=== PATIENT | female | born 1950 | race Caucasian/White ===

== ENCOUNTER 2016-05-13 12:31 | Inpatient (IN) | payer OTHER ==
[~2016-05-13] VITALS: Ht 167.6 cm; Wt 113.4 kg
[~2016-05-13 12:31] MED LIST: AZITHROMYCIN250 MG ORAL; BACITRACIN15 GM TOPIC
[2016-05-13] MEDS ORDERED: Thiamine HCl 100 MG in D5W 50 ML IVPB SCH (12:45)
[2016-05-13] MEDS ORDERED: Thiamine HCl 100mg/ml Inj ONE (13:16)
[2016-05-13 13:29] LABS: BASOPHILS % (AUTO) 1.1 % (0.0-2.0); LYMPHOCYTES % (AUTO) 17.4 % (20.0-45.0); MEAN CORPUSCULAR HEMOGLOBIN 31.4 PG (27.0-31.0); MEAN CORPUSCULAR HGB CONC 31.8 G/DL (32.0-36.0); MEAN CORPUSCULAR VOLUME 99 FL (80-99); MEAN PLATELET VOLUME 6.9 FL (6.5-10.1); NEUTROPHILS % (AUTO) 73.4 % (45.0-75.0); PLATELET COUNT 312 K/UL (150-450); RED BLOOD COUNT 4.37 M/UL (4.20-5.40); RED CELL DISTRIBUTION WIDTH 13.2 % (11.6-14.8); WHITE BLOOD COUNT 12.7 K/UL (4.8-10.8)
[2016-05-13 13:48] LABS: CALCIUM 8.9 mg/dL (8.6-10.2); CREATININE 1.1 mg/dL (0.5-0.9); GLOMERULAR FILTRATION RATE 49.4 mL/min (>60); TOTAL PROTEIN 7.6 g/dL (6.6-8.7); TROPONIN I < 0.30 ng/mL (<=0.30)
[2016-05-13 13:54] LABS: POTASSIUM 2.5 mEQ/L (3.4-4.9)
[2016-05-13 15:22] VITALS: BP 103/77
--- NOTE | 2016-05-13 15:24 | Emergency Room Report ---
History of Present Illness General Chief Complaint: Generalized Weakness Source: Patient, Medical Record, EMS Present Illness HPI Patient is a 69-year-old female who is brought in by EMS for generalized weakness. Patient was found lying in the street. The patient was noted to have prior history of diabetes. She reports being weak all over. History is markedly limited by patient's mental status. She states she lives in a hotel. Patient had reportedly been taking her diabetes medication intermittently. Allergies: Coded Allergies: PENICILLINS (Verified Allergy, Unknown, 01/31/11) Uncoded Allergies: EGGS (Allergy, Unknown, 01/31/11) Patient History Past Medical History: see triage record Reviewed Nursing Documentation: PMH: Agreed, PSxH: Agreed Nursing Documentation-PMH Past Medical History: No History, Except For Hx Cardiac Problems: Yes - High cholesterol, anemia Hx Hypertension: Yes Hx Diabetes: Yes Hx Seizures: Yes Review of Systems All Other Systems: negative except mentioned in HPI Physical Exam Vital Signs Date Time Temp Pulse Resp B/P Pulse Ox O2 Delivery O2 Flow Rate FiO2 05/13/16 12:25 98.1 93 18 194/84 97 Room Air General Appearance: alert, obese, Chronically Ill ENT: normal pharynx, normal voice Neck: full range of motion, supple Respiratory: rhonchi Cardiovascular #1: normal peripheral pulses, regular rate, rhythm, no edema Gastrointestinal: non tender, soft, no mass Musculoskeletal: back normal Neurologic: alert, oriented x3, responsive Psychiatric: other - denies hallucination, no si Skin: normal inspection, normal color, no rash Medical Decision Making Diagnostic Impression: Primary Impression: Episode of generalized weakness Additional Impressions: Hypokalemia Pneumonia ER Course Patient presented for generalized weakness.Patient presented for generalized weakness. Differential diagnosis included was not limited to anemia, urinary tract infection, electrolyte abnormality, hypothyroidism, myocardial infarction , myasthenia gravis, dehydration, among others. Because of complexity of patient's case laboratory testing and imaging studies were ordered. Laboratory studies showed evidence of a hypokalemia had chest x-ray one view interpreted by me showed a right middle lobe infiltrate. The patient was noted to have a slightly bizarre behavior. The patient given IV thiamine. The patient started on IV and oral potassium.Patient was given IV fluids she was given IV antibiotics for a right lung infiltrate Labs Test 05/13/16 13:09 White Blood Count 12.7 K/UL (4.8-10.8) Red Blood Count 4.37 M/UL (4.20-5.40) Hemoglobin 13.7 G/DL (12.0-16.0) Hematocrit 43.2 % (37.0-47.0) Mean Corpuscular Volume 99 FL (80-99) Mean Corpuscular Hemoglobin 31.4 PG (27.0-31.0) Mean Corpuscular Hemoglobin Concent 31.8 G/DL (32.0-36.0) Red Cell Distribution Width 13.2 % (11.6-14.8) Platelet Count 312 K/UL (150-450) Mean Platelet Volume 6.9 FL (6.5-10.1) Neutrophils (%) (Auto) 73.4 % (45.0-75.0) Lymphocytes (%) (Auto) 17.4 % (20.0-45.0) Monocytes (%) (Auto) 6.0 % (1.0-10.0) Eosinophils (%) (Auto) 2.0 % (0.0-3.0) Basophils (%) (Auto) 1.1 % (0.0-2.0) Sodium Level 147 mEQ/L (135-145) Potassium Level 2.5 mEQ/L (3.4-4.9) Chloride Level 99 mEQ/L (98-107) Carbon Dioxide Level 33 mEQ/L (20-30) Anion Gap 15 (5-15) Blood Urea Nitrogen 15 mg/dL (7-23) Creatinine 1.1 mg/dL (0.5-0.9) Estimat Glomerular Filtration Rate 49.4 mL/min (>60) Glucose Level 136 mg/dL (74-106) Calcium Level 8.9 mg/dL (8.6-10.2) Total Bilirubin 0.4 mg/dL (0.0-1.2) Aspartate Amino Transf (AST/SGOT) 37 U/L (5-40) Alanine Aminotransferase (ALT/SGPT) 21 U/L (3-33) Alkaline Phosphatase 92 U/L (35-104) Troponin I < 0.30 ng/mL (<=0.30) Total Protein 7.6 g/dL (6.6-8.7) Albumin 3.9 g/dL (3.5-5.2) Globulin 3.7 g/dL Albumin/Globulin Ratio 1.0 (1.0-2.7) EKG Diagnostic Results Rate: normal Rhythm: NSR ST Segments: other - flattened twaves, pvc Chest X-Ray Diagnostic Results EP Interpretation: Yes Findings: no effusion, no pneumothorax, no acute cardiopulmonary disease, other - right lung infiltrate Last Vital Signs Date Time Temp Pulse Resp B/P Pulse Ox O2 Delivery O2 Flow Rate FiO2 05/13/16 12:25 98.1 93 18 194/84 97 Room Air Status: unchanged Disposition: ADMITTED INPATIENT Condition: Serious Referrals: NOT CHOSEN IPA/,REFERRING (PCP) Elvis Priest May 13, 2016 15:23
[2016-05-13 17:30] VITALS: BP 169/102
[2016-05-13 19:34] VITALS: BP 147/62
[2016-05-13] MEDS ORDERED: DuoNeb 0.5-3(2.5)mg/3ml neb HHN PRN (20:30)
[2016-05-13] MEDS ORDERED: Ketorolac 30mg Inj IV PRN (20:30)
[2016-05-13] MEDS ORDERED: Promethazine/Codeine 5ml UD ORAL PRN (20:30)
[2016-05-13] MEDS ORDERED: Morphine Sulfate 2mg/ml Inj IVP PRN (20:30)
[2016-05-13] MEDS ORDERED: Nitroglycerin Subl 0.4mg tab (Bottle Of 25) SL PRN (20:30)
[2016-05-13 21:30] VITALS: BP 154/59
[2016-05-13 22:28] VITALS: BP 145/86
[2016-05-13] MEDS: Heparin 5000 units/ml inj SUBQ SCH (22:30)
[2016-05-13] MEDS: Theophylline ER 100mg ORAL SCH (22:30)
[2016-05-13] MEDS: NovoLOG Insulin Flexpen SUBQ SCH (22:30)
[2016-05-14] VITALS: BP 138/75
[2016-05-14 04:00] VITALS: BP 130/81
[2016-05-14] MEDS: Solu-MEDROL 125mg Inj IV SCH ×2 (05:45)
[2016-05-14] MEDS: NovoLOG Insulin Flexpen SUBQ SCH ×4 (06:28→21:39)
[2016-05-14 08:00] VITALS: BP 164/88
[2016-05-14] MEDS: Theophylline ER 100mg ORAL SCH (08:44)
[2016-05-14] MEDS: Heparin 5000 units/ml inj SUBQ SCH ×2 (08:51→21:39)
--- NOTE | 2016-05-14 10:07 | History and Physical ---
History of Present Illness General Date patient seen: May 12, 2016 Time patient seen: 09:30 Reason for Hospitalization: Generalized Weakness Present Illness HPI 69 y/old female brought by paramedics for generalized weakness , she was found lying on the street patien is unreliable in giving history, changing it each time, while I was asking her additional questions Apparently she was arguing with her ex boyfriend who came to visit her, she got irritated and went outside , felt weak and decided to lie down on the street she stated, that one of her friends called paramedics she lives in [facility] patient with hx of DM, seizure disorder, HTN denies any seizures, and not witnessed by anyone BS was stable by paramedics and upon arrival to ED BP elevated 194/84 upon admission troponin negative, ECG with NSR flattening TW initial workup revealed mild leukocytosis hypokalemia CXR with questionable R infiltrate denies chest pain, SOB, chest tightness palpitations, occasional dry cough, no wheezing, no hemoptysis active smoker, smokes few cigarettes a day patient admitted to tele for further management Allergies: Coded Allergies: PENICILLINS (Verified Allergy, Unknown, 01/31/11) Uncoded Allergies: EGGS (Allergy, Unknown, 01/31/11) Medication History Scheduled Azithromycin* (Zithromax*), 250 MG ORAL DAILY Bacitracin (Bacitracin), 1 APPLIC TOPIC THREE TIMES A DAY Patient History History Provided By: Patient Healthcare decision maker Resuscitation status Full Code Advanced Directive on File Past Medical/Surgical History Past Medical/Surgical History: (1) Hyperlipidemia (2) Anemia (3) Seizure disorder (4) Diabetes (5) 23-polyvalent pneumococcal polysaccharide vaccine indication of diabetes in patient 6 to 64 years of age (6) HTN (hypertension) Review of Systems Constitutional: Reports: weakness Eye: Reports: no symptoms ENT: Reports: no symptoms Respiratory: Reports: see HPI Cardiovascular: Reports: no symptoms, other - hx of HTN Gastrointestinal: Reports: no symptoms Genitourinary: Reports: no symptoms Musculoskeletal: Reports: no symptoms Skin: Reports: no symptoms Psychiatric: Reports: prior hx Neurological: Reports: seizure Endocrine: Reports: other - hx of M Hematologic/Lymphatic: Reports: anemia Physical Exam General Appearance: WD/WN, no apparent distress, alert, obese Lines, tubes and drains: peripheral HEENT: normocephalic, atraumatic, anicteric, mucous membranes moist, PERRL Neck: non-tender, supple, normal inspection Respiratory/Chest: lungs clear - with moderate air entry , no respiratory distress, no accessory muscle use Cardiovascular/Chest: regular rhythm, tachycardia Abdomen: normal bowel sounds, non tender - obese, soft Extremities: normal range of motion, no calf tenderness, normal capillary refill Skin Exam: warm/dry Neurologic: no motor/sensory deficits, alert, oriented x 3, responsive Musculoskeletal: normal muscle bulk Last 24 Hour Vital Signs Date Time Temp Pulse Resp B/P Pulse Ox O2 Delivery O2 Flow Rate FiO2 05/14/16 09:02 164/88 05/14/16 08:00 123 05/14/16 04:00 97.6 98 22 130/81 97 Room Air 05/14/16 04:00 91 05/14/16 00:00 97.6 79 21 138/75 98 Room Air 05/14/16 00:00 100 05/13/16 22:28 97.5 77 20 145/86 98 Room Air 05/13/16 21:31 98.0 98 17 154/59 98 Room Air 05/13/16 21:30 98.0 98 16 154/59 98 Room Air 05/13/16 19:34 98.0 97 17 147/62 97 Room Air 05/13/16 17:30 97.5 102 23 169/102 99 Room Air 05/13/16 15:22 97.7 106 15 103/77 96 Room Air 05/13/16 12:25 98.1 93 18 194/84 97 Room Air Intake and Output 05/13/16 05/14/16 19:00 07:00 Intake Total 51 ml Balance 51 ml Intake IV Total 51 ml # Voids 3 Laboratory Tests Test 05/13/16 13:09 White Blood Count 12.7 K/UL (4.8-10.8) H Red Blood Count 4.37 M/UL (4.20-5.40) Hemoglobin 13.7 G/DL (12.0-16.0) Hematocrit 43.2 % (37.0-47.0) Mean Corpuscular Volume 99 FL (80-99) Mean Corpuscular Hemoglobin 31.4 PG (27.0-31.0) H Mean Corpuscular Hemoglobin Concent 31.8 G/DL (32.0-36.0) L Red Cell Distribution Width 13.2 % (11.6-14.8) Platelet Count 312 K/UL (150-450) Mean Platelet Volume 6.9 FL (6.5-10.1) Neutrophils (%) (Auto) 73.4 % (45.0-75.0) Lymphocytes (%) (Auto) 17.4 % (20.0-45.0) L Monocytes (%) (Auto) 6.0 % (1.0-10.0) Eosinophils (%) (Auto) 2.0 % (0.0-3.0) Basophils (%) (Auto) 1.1 % (0.0-2.0) Sodium Level 147 mEQ/L (135-145) H Potassium Level 2.5 mEQ/L (3.4-4.9) *L Chloride Level 99 mEQ/L (98-107) Carbon Dioxide Level 33 mEQ/L (20-30) H Anion Gap 15 (5-15) Blood Urea Nitrogen 15 mg/dL (7-23) Creatinine 1.1 mg/dL (0.5-0.9) H Estimat Glomerular Filtration Rate 49.4 mL/min (>60) Glucose Level 136 mg/dL (74-106) H Calcium Level 8.9 mg/dL (8.6-10.2) Total Bilirubin 0.4 mg/dL (0.0-1.2) Aspartate Amino Transf (AST/SGOT) 37 U/L (5-40) Alanine Aminotransferase (ALT/SGPT) 21 U/L (3-33) Alkaline Phosphatase 92 U/L (35-104) Troponin I < 0.30 ng/mL (<=0.30) Total Protein 7.6 g/dL (6.6-8.7) Albumin 3.9 g/dL (3.5-5.2) Globulin 3.7 g/dL Albumin/Globulin Ratio 1.0 (1.0-2.7) Height (Feet): 5 Height (Inches): 6.00 Weight (Pounds): 250 Medications Current Medications Medications (Trade) Dose Ordered Sig/Salma Route PRN Reason Start Time Stop Time Status Last Admin Dose Admin Albuterol/ Ipratropium (DuoNeb 0.5-3(2.5)mg/3ml) 3 ml EVERY 4 HOURS PRN HHN dyspnea 05/13/16 20:30 05/18/16 20:29 Clonidine HCl (Catapres) 0.1 mg Q6H PRN ORAL sbp>160 05/14/16 14:00 06/13/16 13:59 05/14/16 09:02 Dextrose STAT PRN IV Hypoglycemia 05/13/16 20:30 06/12/16 20:29 Heparin Sodium (Porcine) (Heparin 5000 units/ml) 5,000 units EVERY 12 HOURS SUBQ 05/13/16 21:00 06/12/16 20:59 05/14/16 08:51 Insulin Aspart (NovoLOG) BEFORE MEALS AND HS SUBQ 05/13/16 21:00 06/12/16 20:59 05/14/16 06:28 Ketorolac Tromethamine (Toradol 30mg) 30 mg EVERY 8 HOURS PRN IV moderate pain 4-6 05/13/16 20:30 05/18/16 20:29 Levofloxacin 100 ml @ 100 mls/hr ONCE IVPB 05/14/16 00:00 05/21/16 00:00 Levofloxacin (Levaquin) 50 ml @ 100 mls/hr Q24HRS IVPB 05/15/16 00:00 05/22/16 00:00 Lorazepam (Ativan 2mg/ml 1ml) 0.5 mg Q4H PRN IV For Anxiety 05/13/16 20:30 05/20/16 20:29 Methylprednisolone Sodium Succinate (Solu-MEDROL) 60 mg Q8HR IV 05/14/16 14:00 06/13/16 13:59 Morphine Sulfate (Morphine Sulfate) 2 mg EVERY 4 HOURS PRN IVP severe pain 7-10 05/13/16 20:30 05/20/16 20:29 Nitroglycerin (Ntg) 0.4 mg Q5M X 3 DOSES PRN SL Prn Chest Pain 05/13/16 20:30 06/12/16 20:29 Ondansetron HCl (Zofran) 4 mg Q6H PRN IVP Nausea & Vomiting 05/13/16 20:30 06/12/16 20:29 Promethazine HCl/ Codeine (Phenergan with Codeine) 5 ml EVERY 6 HOURS PRN ORAL cough 05/13/16 20:30 06/12/16 20:29 Temazepam (Restoril) 15 mg HSPRN PRN ORAL Insomnia 05/13/16 20:30 05/20/16 20:29 Theophylline (Hung-Dur) 100 mg EVERY 12 HOURS ORAL 05/13/16 21:00 06/12/16 20:59 05/14/16 08:44 Thiamine HCl/ Dextrose (Vitamin B1/D5W 50ml) 51 ml @ 100 mls/hr Q24H IVPB 05/13/16 12:45 06/12/16 12:44 05/13/16 13:18 Assessment/Plan Assessment/Plan ASSESSMENT CAP vs bronchitis COPD, no evidence of exacerbation hypokalemia HTN urgency -resolved episode of generalized weakness seizure disorder YULI [employer] troponin negative ECG with SR, occas tachy O2 HHN prn empiric abx CXR in am , dc steroids and Theophylline sputum cx if able antitussive prn replace K, check K and Mg in am BS management with SS of insulin, check HgA1c BP management with BB ( start low dose and titrate as needed) lipid panel seizure precaution, not sure if on any antiseizure medications urine drug screen gentle IV fluids, monitor renal parameters, lytes, DVT, GI prophylaxis case discussed and evaluated by supervising physician ute Yi ([facility]),Holly MALIN May 14, 2016 10:07
[2016-05-14 10:39] LABS: CALCIUM 8.3 mg/dL (8.6-10.2); CREATININE 1.2 mg/dL (0.5-0.9); GLOMERULAR FILTRATION RATE 44.7 mL/min (>60); POTASSIUM 3.2 mEQ/L (3.4-4.9)
--- NOTE | 2016-05-14 11:44 | Diagnostic Imaging Report ---
Indication: Chest Pain Comparison: None A single view chest radiograph was obtained. Findings: Pulmonary vascularity is mildly prominent without overt CHF. The heart is enlarged. The aorta is mildly enlarged consistent with atherosclerotic vascular disease. The bones are osteopenic. Impression: No acute disease
[2016-05-14 12:00] VITALS: BP 136/94
[2016-05-14] MEDS ORDERED: Solu-MEDROL 125mg Inj IV SCH (14:00)
[2016-05-14] MEDS ORDERED: KCl 10% 40mEq/30ml liquid NG ONE (15:00)
[2016-05-14 16:00] VITALS: BP 146/78
[2016-05-14] MEDS: LORazepam Inj 2mg/ml 1ml IV PRN (16:07)
[2016-05-14 20:00] VITALS: BP 145/91
[2016-05-14] MEDS: Metoprolol Tartrate 12.5mg TAB ORAL SCH (21:39)
[2016-05-15] VITALS (7 sets, daily range): BP systolic 116–194; BP diastolic 67–102
[2016-05-15] MEDS: NovoLOG Insulin Flexpen SUBQ SCH ×4 (06:33→21:40)
[2016-05-15] MEDS: Metoprolol Tartrate 12.5mg TAB ORAL SCH ×2 (10:25→21:38)
[2016-05-15] MEDS: Heparin 5000 units/ml inj SUBQ SCH ×2 (10:28→21:40)
[2016-05-15] MEDS ORDERED: LORazepam 0.5mg tab ORAL PRN (11:00)
--- NOTE | 2016-05-15 11:57 | Diagnostic Imaging Report ---
Indication: Dyspnea Comparison: 05/13/16 A single view chest radiograph was obtained. Findings: Cardiomegaly is present. Lungs are clear with normal vascularity. Impression: No acute disease
--- NOTE | 2016-05-15 13:26 | Pulmonology Progress Note ---
Assessment/Plan Problems: (1) Acute encephalopathy (2) Seizure disorder (3) Episode of generalized weakness (4) HTN (hypertension) Assessment/Plan psych and neuro evaluation check K pt/ot social service consult Subjective ROS Limited/Unobtainable: No Interval Events: awake, no new complains, refusing any lines Constitutional: Reports: no symptoms HEENT: Repors: no symptoms Cardiovascular: Reports: no symptoms Gastrointestinal/Abdominal: Reports: no symptoms Psychiatric: Reports: no symptoms Allergies: Coded Allergies: PENICILLINS (Verified Allergy, Unknown, 01/31/11) Uncoded Allergies: EGGS (Allergy, Unknown, 01/31/11) Objective Last 24 Hour Vital Signs Date Time Temp Pulse Resp B/P Pulse Ox O2 Delivery O2 Flow Rate FiO2 05/15/16 12:00 96.8 109 18 132/67 96 Room Air 05/15/16 10:25 108 132/67 05/15/16 08:00 96.9 112 18 151/79 95 Room Air 05/15/16 04:00 97.6 100 20 157/90 96 Room Air 05/15/16 04:00 100 05/15/16 00:30 158/93 05/15/16 00:00 98.8 101 20 162/91 95 Room Air 05/15/16 00:00 105 05/14/16 21:39 99 145/91 05/14/16 20:00 86 05/14/16 20:00 97.9 99 19 145/91 97 Room Air 05/14/16 16:00 109 05/14/16 16:00 98.1 66 20 146/78 95 Room Air Intake and Output 05/14/16 05/15/16 19:00 07:00 Intake Total 600 ml 840 ml Balance 600 ml 840 ml Intake Oral 600 ml 840 ml # Voids 2 5 # Bowel Movements 4 General Appearance: WD/WN HEENT: atraumatic Respiratory/Chest: chest wall non-tender, normal breath sounds Breasts: no masses Cardiovascular: normal peripheral pulses Abdomen: normal bowel sounds Current Medications Medications (Trade) Dose Ordered Sig/Salma Route PRN Reason Start Time Stop Time Status Last Admin Dose Admin Albuterol/ Ipratropium (DuoNeb 0.5-3(2.5)mg/3ml) 3 ml EVERY 4 HOURS PRN HHN dyspnea 05/13/16 20:30 05/18/16 20:29 Clonidine HCl (Catapres) 0.1 mg Q6H PRN ORAL sbp>160 05/14/16 14:00 06/13/16 13:59 05/14/16 09:02 Dextrose STAT PRN IV Hypoglycemia 05/13/16 20:30 06/12/16 20:29 Heparin Sodium (Porcine) (Heparin 5000 units/ml) 5,000 units EVERY 12 HOURS SUBQ 05/13/16 21:00 06/12/16 20:59 05/15/16 10:28 Insulin Aspart (NovoLOG) BEFORE MEALS AND HS SUBQ 05/13/16 21:00 06/12/16 20:59 05/15/16 12:15 Ketorolac Tromethamine (Toradol 30mg) 30 mg EVERY 8 HOURS PRN IV moderate pain 4-6 05/13/16 20:30 05/18/16 20:29 Levofloxacin (Levaquin) 50 ml @ 100 mls/hr Q24HRS IVPB 05/15/16 00:00 05/22/16 00:00 Lorazepam (Ativan 2mg/ml 1ml) 0.5 mg Q4H PRN IV For Anxiety 05/13/16 20:30 05/20/16 20:29 05/14/16 16:07 Lorazepam (Ativan) 0.5 mg Q6H PRN ORAL For Anxiety 05/15/16 11:00 05/22/16 10:59 Metoprolol Tartrate 12.5 mg 12.5 mg Q12HR ORAL 05/14/16 21:00 06/13/16 20:59 05/15/16 10:25 Morphine Sulfate (Morphine Sulfate) 2 mg EVERY 4 HOURS PRN IVP severe pain 7-10 05/13/16 20:30 05/20/16 20:29 Nitroglycerin (Ntg) 0.4 mg Q5M X 3 DOSES PRN SL Prn Chest Pain 05/13/16 20:30 06/12/16 20:29 Ondansetron HCl (Zofran) 4 mg Q6H PRN IVP Nausea & Vomiting 05/13/16 20:30 06/12/16 20:29 Promethazine HCl/ Codeine (Phenergan with Codeine) 5 ml EVERY 6 HOURS PRN ORAL cough 05/13/16 20:30 06/12/16 20:29 Ranitidine HCl (Zantac) 150 mg BEDTIME ORAL 05/14/16 21:00 06/13/16 20:59 05/14/16 21:39 Sodium Chloride (0.45% NS 1000ml) 1,000 ml @ 50 mls/hr Q20H IV 05/14/16 16:00 06/13/16 15:59 05/14/16 18:56 Temazepam (Restoril) 15 mg HSPRN PRN ORAL Insomnia 05/13/16 20:30 05/20/16 20:29 LAYLA ANGUIANO May 15, 2016 13:26
[2016-05-15] MEDS ORDERED: 1/2 NS 1000ml IV ONE (15:52)
--- NOTE | 2016-05-15 18:05 | Neurology Progress Note ---
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
[2016-05-16] VITALS (7 sets, daily range): BP systolic 115–192; BP diastolic 75–127
[2016-05-16] MEDS: LORazepam Inj 2mg/ml 1ml IV PRN (03:53)
--- NOTE | 2016-05-16 04:58 | Consultation ---
DATE OF CONSULTATION: 05/15/2016 REQUESTING PHYSICIAN: Dr. Juan Palma. HISTORY OF PRESENT ILLNESS: This is a 65-year-old female seen in neurological consultation to evaluate the chronic seizure disorder, new onset of profound generalized weakness, and confusion. The patient reportedly was found to be lying supine on the sidewalk, complained that she is feeling sick. Her blood pressure was 194/84, heart rate of 86, and respirations 18. Laboratory work was obtained, this revealed WBC 12.7. Chemistry panel, potassium 2.5, sodium 147, creatinine 1.1, and normal troponin. Imaging studies limited to chest x-ray revealing no acute disease. Vital signs with fluctuation in blood pressure latest 194/102 and heart rate of 108. Following admission until present, the patient remained confused and was placed. PAST MEDICAL HISTORY: Not clear because the patient is a poor historian. She informed me that she has seizure when she upright and shaking and falling. She has a history of hypertension, diabetes, hyperlipidemia, depression "with hallucinations and memory loss". Treatment prior to admission included Zithromax, bacitracin, she has p.r.n. Toradol, levofloxacin, Ativan, metoprolol, and Phenergan With Codeine. ALLERGIES: Penicillin, eggs. FAMILY HISTORY: Noncontributory. SOCIAL HISTORY: The patient confused, unable to provide with a history. Apparently, she is a resident of a nursing facility. According to medical records, the patient's boyfriend was visiting her and informed that she lives in a motel. She has a history of diabetes, seizures, and hypertension, although she never seen seizures in the past. REVIEW OF SYMPTOMS: The patient is currently complaining of being grumpy, having fevers and chills with generalized weakness. Denies headache. Denies dizziness. No chest pain or palpitations. No respiratory problems. PHYSICAL EXAMINATION: GENERAL: This is a well-developed and somewhat disheveled female, not in acute distress, lying comfortably in bed. VITAL SIGNS: Blood pressure 168/96 and respiration 18. HEENT: Head is normocephalic. No evidence of trauma. Eyes, ears, and throat are clear. NECK: Supple. No meningeal signs. MUSCULOSKELETAL: There is significant redness of the skin in distal aspect of both legs. Peripheral pulses 1+ symmetric. MENTAL STATUS: The patient is alert. She gives incorrectly her name, place, and time. She is quite confused. She was unable to recall any of three words in 3 minutes. She has no evidence of aphasia or apraxia. She is able to follow simple commands. CRANIAL NERVE II: Pupils both responding to light and accommodation. Extraocular movements intact. No nystagmus. CRANIAL NERVE V: Normal corneal responses. CRANIAL NERVE VII: No facial asymmetry. CRANIAL NERVE VIII: Normal hearing. CRANIAL NERVES IX THROUGH XII: Tongue is in midline. MOTOR EXAMINATION: Able to lift arms and legs against the gravity. Deep reflexes 1+ symmetric with downgoing toes on both sides. Sensory exam normal in all modalities. Gait is stable. IMPRESSION: 1. New onset of chills, fevers, and hypertension out of control. Rule out cellulitis and sepsis. 2. History of seizure disorder as well as possibly pseudoseizures. 3. Diabetes type 2. 4. Hyperlipidemia. 5. Hypertension. 6. Chronic psychiatric disorder with significant cognitive loss, rule out vascular dementia. RECOMMENDATION: 1. Continue with supportive care. 2. IV fluids and antibiotics to cover possible cellulitis. 3. Continue with current treatment, adding aspirin 81 mg. 4. Maintain Ativan 1 mg IV q.1 hour p.r.n. for appearance of seizure activities. We will consider obtaining electroencephalogram, observing for paroxysmal events. Thank you for allowing me to see this interesting patient in neurological consultation. Charles Garcia M.D. DR: VINICIO JOB#: [id number] CC:
[2016-05-16] MEDS: NovoLOG Insulin Flexpen SUBQ SCH ×3 (06:24→15:47)
[2016-05-16] MEDS: Metoprolol Tartrate 12.5mg TAB ORAL SCH ×3 (08:16→08:55)
[2016-05-16] MEDS: Heparin 5000 units/ml inj SUBQ SCH (08:18)
--- NOTE | 2016-05-16 12:37 | Pulmonology Progress Note ---
Assessment/Plan Problems: (1) Acute encephalopathy (2) Seizure disorder (3) Episode of generalized weakness (4) HTN (hypertension) Assessment/Plan psych and neuro evaluation check K pt/ot social service consult pt refusing labs dc home/fdc Subjective ROS Limited/Unobtainable: No Interval Events: no acute complain HEENT: Repors: no symptoms Allergies: Coded Allergies: PENICILLINS (Verified Allergy, Unknown, 01/31/11) Uncoded Allergies: EGGS (Allergy, Unknown, 01/31/11) Objective Last 24 Hour Vital Signs Date Time Temp Pulse Resp B/P Pulse Ox O2 Delivery O2 Flow Rate FiO2 05/16/16 12:00 97.9 100 20 139/98 94 Room Air 05/16/16 08:55 99 120/86 05/16/16 08:11 98.2 99 18 120/86 94 Room Air 05/16/16 08:00 109 05/16/16 05:00 147/89 05/16/16 04:11 98.2 119 22 192/127 94 Room Air 05/16/16 04:00 128 05/16/16 03:24 192/127 05/16/16 00:29 98.5 104 20 149/95 94 Room Air 05/16/16 00:00 104 05/15/16 21:38 108 174/112 05/15/16 20:00 98.6 103 18 116/74 94 Room Air 05/15/16 17:09 174/112 05/15/16 16:00 97.0 108 17 194/102 97 Room Air 05/15/16 16:00 112 Intake and Output 05/15/16 05/16/16 19:00 07:00 Intake Total 1090 ml 120 ml Balance 1090 ml 120 ml Intake Oral 1090 ml 120 ml # Voids 6 4 General Appearance: WD/WN HEENT: normocephalic Respiratory/Chest: chest wall non-tender, lungs clear Breasts: no masses Cardiovascular: normal peripheral pulses, normal rate Abdomen: normal bowel sounds, soft, non tender Extremities: no cyanosis Skin: no rash Current Medications Medications (Trade) Dose Ordered Sig/Salma Route PRN Reason Start Time Stop Time Status Last Admin Dose Admin Albuterol/ Ipratropium (DuoNeb 0.5-3(2.5)mg/3ml) 3 ml EVERY 4 HOURS PRN HHN dyspnea 05/13/16 20:30 05/18/16 20:29 Clonidine HCl (Catapres) 0.1 mg Q6H PRN ORAL sbp>160 05/14/16 14:00 06/13/16 13:59 05/16/16 03:24 Dextrose STAT PRN IV Hypoglycemia 05/13/16 20:30 06/12/16 20:29 Heparin Sodium (Porcine) (Heparin 5000 units/ml) 5,000 units EVERY 12 HOURS SUBQ 05/13/16 21:00 06/12/16 20:59 05/16/16 08:18 Insulin Aspart (NovoLOG) BEFORE MEALS AND HS SUBQ 05/13/16 21:00 06/12/16 20:59 05/16/16 10:54 Ketorolac Tromethamine (Toradol 30mg) 30 mg EVERY 8 HOURS PRN IV moderate pain 4-6 05/13/16 20:30 05/18/16 20:29 Levofloxacin (Levaquin) 50 ml @ 100 mls/hr Q24HRS IVPB 05/15/16 00:00 05/22/16 00:00 Lorazepam (Ativan 2mg/ml 1ml) 0.5 mg Q4H PRN IV For Anxiety 05/13/16 20:30 05/20/16 20:29 05/16/16 03:53 Lorazepam (Ativan) 0.5 mg Q6H PRN ORAL For Anxiety 05/15/16 11:00 05/22/16 10:59 Metoprolol Tartrate 12.5 mg 12.5 mg Q12HR ORAL 05/14/16 21:00 06/13/16 20:59 05/16/16 08:55 Morphine Sulfate (Morphine Sulfate) 2 mg EVERY 4 HOURS PRN IVP severe pain 7-10 05/13/16 20:30 05/20/16 20:29 05/16/16 03:23 Nitroglycerin (Ntg) 0.4 mg Q5M X 3 DOSES PRN SL Prn Chest Pain 05/13/16 20:30 06/12/16 20:29 Ondansetron HCl (Zofran) 4 mg Q6H PRN IVP Nausea & Vomiting 05/13/16 20:30 06/12/16 20:29 Promethazine HCl/ Codeine (Phenergan with Codeine) 5 ml EVERY 6 HOURS PRN ORAL cough 05/13/16 20:30 06/12/16 20:29 Ranitidine HCl (Zantac) 150 mg BEDTIME ORAL 05/14/16 21:00 06/13/16 20:59 05/15/16 21:38 Sodium Chloride (0.45% NS 1000ml) 1,000 ml @ 50 mls/hr Q20H IV 05/14/16 16:00 06/13/16 15:59 05/14/16 18:56 Temazepam (Restoril) 15 mg HSPRN PRN ORAL Insomnia 05/13/16 20:30 05/20/16 20:29 LAYLA ANGUIANO May 16, 2016 12:37
--- NOTE | 2016-05-17 13:03 | Discharge Summary ---
Discharge Summary Hospital Course Date of Admission May 13, 2016 at 21:56 Date of Discharge May 16, 2016 at 20:19 Admitting Diagnosis generalized weakness, hypokalemia HPI Lulú Hsu is a 65 year old female who was admitted on May 13, 2016 at 21:56 for Generalized Weakness; Hypokalemia Consultations neuro dr Garcia Hospital Course dc summary dictated #[id number] Discharge Medications Continued Medications: Bacitracin (Bacitracin) 15 Gm Oint...g. 1 APPLIC TOPIC THREE TIMES A DAY for 10 Days, GM Discharge Condition Upon Discharge: improving, stable Discharge Disposition Patient was discharged to assisted living Discharge Diagnoses: Kd (Merary)Holly NP May 17, 2016 13:03
--- NOTE | 2016-05-18 06:07 | Discharge Summary 2 SIG ---
DATE OF ADMISSION: 05/13/2016 DATE OF DISCHARGE: 05/16/2016 REASON FOR HOSPITALIZATION: 65-year-old female, brought by paramedics for generalized weakness. She was found lying on the street. The patient was unreliable in giving history, changing it. Apparently, she had an argument with her ex boyfriend, who came to visit her. She got irritated and went outside and decided to lie down on the street. She stated that one of her friends called the paramedics. The patient lives in [facility]. The patient has a history of diabetes, seizure disorder, and hypertension. She denied any seizure, and no seizure was witnessed by anyone on the street. She denied loss of consciousness, blackouts, headaches, dizziness. Blood sugar was stable as checked by paramedics and upon arrival to the emergency department, blood pressure was elevated upon admission. Troponin was negative. EKG revealed normal sinus rhythm with flattening T-wave. Initial workup revealed mild leukocytosis and hypokalemia and chest X ray with a questionable right lung infiltrate. She denied chest pain, shortness of breath, chest tightness, or palpitations. She reported occasional dry cough, but no wheezing, no hemoptysis. She admitted to smoking few cigarettes a day. The patient admitted to the telemetry for further management. ADMITTING DIAGNOSES: CAP vs bronchitis COPD Hypokalemia HTN urgency Seizure disorder Acute kidney injury HOSPITAL STAY: Neurology consult was requested. Followup chest x-ray revealed no evidence of pneumonia. Potassium was replaced. Supplemental oxygen and pulmonary toilet provided as needed. Neurologist seen the patient. Neurologist recommended seizure precautions and Ativan as needed. After examining the patient, he concluded the patient might have a seizure disorder versus pseudoseizures. The patient was initially on the IV fluids. Supportive care provided. The patient was on aspirin. The patient refused further laboratories testing. Blood sugar was managed with sliding scale of insulin, stable. Blood pressure was managed with beta-salas and was stable. We attempted to check hemoglobin A1c, lipid panel, however, the patient refused labs as well as unable to check potassium after potassium replacement. Renal parameters were stable. DVT and GI prophylaxes provided. Antitussive provided as needed. No evidence of the chronic obstructive pulmonary disease exacerbation. The patient counseled on smoking cessation. Urine toxicology screen was ordered, but not done. The patient did not provided urine specimen. Transfer arranged to assisted living facility. The patient agreed with the plan. The patient was stable for discharge. DISCHARGE MEDICATIONS: See medication reconciliation list. FINAL DISCHARGE DIAGNOSES: 1. Bronchitis. 2. Chronic obstructive pulmonary disease, no evidence of exacerbation. 3. Hypokalemia. 4. Hypertensive urgency, resolved. 5. Episodes of generalized weakness. 6. Seizure disorder. 7. Acute kidney injury, possibly element of chronic. DISCHARGE INSTRUCTIONS: The patient to follow up with the primary medical doctor. Juan Palma M.D. Holly RileyGuthrie Corning HospitalMelinda N.PJose Luis DR: JACKSON JOB#: [id number] CC: PORTILLO
== END 2016-05-16 20:19 | disposition home or self-care (01) | DRG 144 ==
LOC: EDBD 12:31 → EMR 14:28 → EDBEDREQ 21:19 → 2E 21:56 → EDBD 21:56
DX: J40 Bronchitis, not specified as acute or chronic (principal); G93.40 Encephalopathy, unspecified; N17.9 Acute kidney failure, unspecified; I10 Essential (primary) hypertension; E11.9 Type 2 diabetes mellitus without complications; D64.9 Anemia, unspecified; J44.9 Chronic obstructive pulmonary disease, unspecified; E87.6 Hypokalemia; G40.909 Epilepsy, unspecified, not intractable, without status epilepticus; E78.5 Hyperlipidemia, unspecified; Z72.0 Tobacco use; D72.829 Elevated white blood cell count, unspecified; R53.1 Weakness; I16.0 Hypertensive urgency; F99 Mental disorder, not otherwise specified
CPT/HCPCS: 36415; 71010; 80048; 80053; 82962; 84484; 85025; 93005; J1815; J8499

== ENCOUNTER 2016-07-18 19:57 | Inpatient (IN) | payer OTHER ==
[~2016-07-18] VITALS: Ht 165.1 cm; Wt 90.7 kg
[2016-07-18] MEDS ORDERED: LORazepam Inj 2mg/ml 1ml IM ONE (22:15)
[2016-07-18 22:37] VITALS: BP 135/76
--- NOTE | 2016-07-18 22:39 | Emergency Room Report ---
History of Present Illness General Chief Complaint: Vomiting Source: EMS Present Illness HPI 65 YO female presents to emergency department brought by ambulance sent from [facility] for 3 episodes of vomiting in addition she complains of headache. Upon arrival patient states that she does not have any complaints. Patient is a poor historian review of nursing facility paperwork in addition to the prior hospital record shows patient recently had urinary tract infection. Pt states she has a history of migraines and only recalls vomiting one time today. Pt has hx of cognitive decline. Denies fevers or chills. HPI & ROS is limited due to patient cooperation. Allergies: Coded Allergies: PENICILLINS (Verified Allergy, Unknown, 01/31/11) STREPTOMYCIN (Verified Allergy, Unknown, 07/18/16) Uncoded Allergies: EGGS (Allergy, Unknown, 01/31/11) Patient History Past Medical History: see triage record Past Surgical History: none Pertinent Family History: none Now: No Reviewed Nursing Documentation: PMH: Agreed, PSxH: Agreed Nursing Documentation-PMH Hx Cardiac Problems: No Hx Hypertension: Yes Hx Diabetes: Yes Hx Cancer: No Hx Gastrointestinal Problems: No Hx Neurological Problems: No Hx Seizures: Yes Review of Systems All Other Systems: limited - due to pt. cooperation Physical Exam Vital Signs Date Time Temp Pulse Resp B/P Pulse Ox O2 Delivery O2 Flow Rate FiO2 07/18/16 19:57 98.1 74 20 147/79 96 Room Air Sp02 EP Interpretation: reviewed, normal General Appearance: well appearing, no apparent distress, alert, GCS 15, non- toxic Head: normocephalic, atraumatic Eyes: bilateral eye PERRL, bilateral eye normal inspection ENT: hearing grossly normal, normal pharynx, no angioedema, normal voice Neck: full range of motion, supple/symm/no masses Respiratory: chest non-tender, lungs clear, normal breath sounds, speaking full sentences Cardiovascular #1: regular rate, rhythm, no edema Gastrointestinal: normal bowel sounds, non tender, soft, no guarding, no rebound Rectal: deferred Genitourinary: normal inspection, no CVA tenderness Musculoskeletal: back normal, gait/station normal, normal range of motion, non- tender, no calf tenderness Neurologic: alert, responsive, motor strength/tone normal, speech normal, other - poorly cooperative Psychiatric: judgement/insight normal, memory normal, mood/affect normal, no suicidal/homicidal ideation Skin: normal color, no rash, warm/dry, well hydrated Lymphatic: no adenopathy Medical Decision Making PA Attestation Dr. felix is my supervising Physician whom patient management has been discussed with. Diagnostic Impression: Primary Impression: Acute renal failure Qualified Codes: N17.9 - Acute kidney failure, unspecified Additional Impression: Dehydration ER Course 65 YO female presents to emergency department brought by ambulance [facility] for 3 episodes of vomiting in addition she complains of headache. Upon arrival patient states that she does not have any complaints. Patient is a poor historian review of nursing facility paperwork in addition to the prior hospital record shows patient recently had urinary tract infection. Pt states she has a history of migraines and only recalls vomiting one time today. Denies fevers or chills. HPI & ROS is limited due to patient cooperation. Ddx considered but are not limited to UTI, sepsis, GE, electrolyte imbalance Vital signs: are WNL, pt. is afebrile H&PE are most consistent with Nausea/comiting, and weakness in a pt. recently treated for UTI . ORDERS: -CBC: mild anemia -CMP: elevated creatinine and BUN consistent with acute renal failure - UA: moderate epithelial cells, few bacteria, no wbc's consistent with contamination over UTI -Lipase: mild elevation at 96 ED INTERVENTIONS: 1mg Ativan IM This pt. has been signed out to Dr. Cole pending laboratory results and possible admission. Labs Test 07/18/16 23:35 07/18/16 23:55 07/19/16 00:05 Sodium Level 142 mEQ/L (135-145) Potassium Level 4.3 mEQ/L (3.4-4.9) Chloride Level 102 mEQ/L (98-107) Carbon Dioxide Level 27 mEQ/L (20-30) Anion Gap 13 (5-15) Blood Urea Nitrogen 27 mg/dL (7-23) Creatinine 1.4 mg/dL (0.5-0.9) Estimat Glomerular Filtration Rate 37.8 mL/min (>60) Glucose Level 139 mg/dL (74-106) Calcium Level 9.2 mg/dL (8.6-10.2) Total Bilirubin < 0.2 mg/dL (0.0-1.2) Aspartate Amino Transf (AST/SGOT) 17 U/L (5-40) Alanine Aminotransferase (ALT/SGPT) 15 U/L (3-33) Alkaline Phosphatase 75 U/L (35-104) Total Protein 6.5 g/dL (6.6-8.7) Albumin 3.1 g/dL (3.5-5.2) Globulin 3.4 g/dL Albumin/Globulin Ratio 0.9 (1.0-2.7) Lipase 96 U/L (< 60) White Blood Count 9.0 K/UL (4.8-10.8) Red Blood Count 3.52 M/UL (4.20-5.40) Hemoglobin 10.9 G/DL (12.0-16.0) Hematocrit 32.8 % (37.0-47.0) Mean Corpuscular Volume 93 FL (80-99) Mean Corpuscular Hemoglobin 30.9 PG (27.0-31.0) Mean Corpuscular Hemoglobin Concent 33.1 G/DL (32.0-36.0) Red Cell Distribution Width 13.1 % (11.6-14.8) Platelet Count 255 K/UL (150-450) Mean Platelet Volume 7.3 FL (6.5-10.1) Neutrophils (%) (Auto) 62.3 % (45.0-75.0) Lymphocytes (%) (Auto) 26.2 % (20.0-45.0) Monocytes (%) (Auto) 7.9 % (1.0-10.0) Eosinophils (%) (Auto) 2.4 % (0.0-3.0) Basophils (%) (Auto) 1.2 % (0.0-2.0) Urine Color Pale yellow Urine Appearance Clear Urine pH 6 (4.5-8.0) Urine Specific [place] 1.015 (1.005-1.035) Urine Protein 3+ (NEGATIVE) Urine Glucose (UA) Negative (NEGATIVE) Urine Ketones Negative (NEGATIVE) Urine Occult Blood Negative (NEGATIVE) Urine Nitrite Negative (NEGATIVE) Urine Bilirubin Negative (NEGATIVE) Urine Urobilinogen Normal MG/DL (0.0-1.0) Urine Leukocyte Esterase Negative (NEGATIVE) Urine RBC 0-2 /HPF (0 - 2) Urine WBC 2-4 /HPF (0 - 2) Urine Squamous Epithelial Cells Many /LPF (NONE/OCC) Urine Bacteria Few /HPF (NONE) Urine HCG, Qualitative Negative Last Vital Signs Date Time Temp Pulse Resp B/P Pulse Ox O2 Delivery O2 Flow Rate FiO2 07/18/16 19:57 98.1 74 20 147/79 96 Room Air Disposition: ADMITTED INPATIENT Condition: Serious Signed Out To: Dr. Cole Referrals: DELMIS TENORIO (PCP) Kay Jacobo Jul 18, 2016 22:39
[2016-07-18] MEDS ORDERED: Morphine Sulfate 2mg/ml Inj IVP PRN (23:00)
[2016-07-18] MEDS ORDERED: Mylanta II UD 30ml ORAL PRN (23:00)
[2016-07-18] MEDS ORDERED: Miralax 17gm pkt ORAL PRN (23:00)
[2016-07-18] MEDS ORDERED: Nitroglycerin Subl 0.4mg tab (Bottle Of 25) SL PRN (23:00)
[2016-07-18] MEDS ORDERED: Haloperidol 5mg/ml Inj ONE (23:23)
[2016-07-18] MEDS ORDERED: Haloperidol 5mg/ml Inj IM ONE (23:45)
[2016-07-19] VITALS (8 sets, daily range): BP systolic 100–167; BP diastolic 48–81
[2016-07-19 00:16] LABS: ALANINE AMINOTRANSFERASE 15 U/L (3-33); ALBUMIN/GLOBULIN RATIO 0.9 (1.0-2.7); ANION GAP 13 (5-15); ASPARTATE AMINO TRANSFERASE 17 U/L (5-40); CALCIUM 9.2 mg/dL (8.6-10.2); CARBON DIOXIDE 27 mEQ/L (20-30); CHLORIDE 102 mEQ/L (98-107); CREATININE 1.4 mg/dL (0.5-0.9); GLOMERULAR FILTRATION RATE 37.8 mL/min (>60); HEMOLYSIS 4; LIPASE 96 U/L (< 60); POTASSIUM 4.3 mEQ/L (3.4-4.9); SODIUM 142 mEQ/L (135-145); TOTAL PROTEIN 6.5 g/dL (6.6-8.7)
[2016-07-19 00:25] LABS: BASOPHILS % (AUTO) 1.2 % (0.0-2.0); EOSINOPHILS % (AUTO) 2.4 % (0.0-3.0); LYMPHOCYTES % (AUTO) 26.2 % (20.0-45.0); MEAN CORPUSCULAR HEMOGLOBIN 30.9 PG (27.0-31.0); MEAN CORPUSCULAR HGB CONC 33.1 G/DL (32.0-36.0); MEAN CORPUSCULAR VOLUME 93 FL (80-99); MEAN PLATELET VOLUME 7.3 FL (6.5-10.1); MONOCYTES % (AUTO) 7.9 % (1.0-10.0); NEUTROPHILS % (AUTO) 62.3 % (45.0-75.0); PLATELET COUNT 255 K/UL (150-450); RED BLOOD COUNT 3.52 M/UL (4.20-5.40); RED CELL DISTRIBUTION WIDTH 13.1 % (11.6-14.8)
[2016-07-19 00:33] LABS: APPEARANCE,URINE CLEAR; KETONES,URINE NEGATIVE (NEGATIVE); LEUKOCYTE ESTERASE ,URINE NEGATIVE (NEGATIVE); NITRITE,URINE NEGATIVE (NEGATIVE); PH,URINE 6 (4.5-8.0); PROTEIN,URINE 3+ (NEGATIVE); UROBILINOGEN,URINE NORMAL MG/DL (0.0-1.0)
[2016-07-19] MEDS ORDERED: LACTULOSE20 GM/301 ORAL (00:43)
[2016-07-19] MEDS ORDERED: DOCUSATE SODIU100 MG ORAL (00:43)
[2016-07-19] MEDS ORDERED: TRADJENTA5 MG PO (00:43)
[2016-07-19] MEDS ORDERED: CARVEDILOL12.5 MG ORAL (00:43)
[2016-07-19] MEDS ORDERED: PENTOXIFYLLINE400 MG ORAL (00:43)
[2016-07-19] MEDS ORDERED: CATAPRES0.1 MG ORAL (00:43)
[2016-07-19] MEDS ORDERED: FAMOTIDINE20 MG ORAL (00:43)
[2016-07-19] MEDS ORDERED: LIPITOR20 MG ORAL (00:43)
[2016-07-19] MEDS ORDERED: MAGNESIUM OXID400 M1 ORAL (00:43)
[2016-07-19] MEDS ORDERED: LEVOTHYROXINE25 MCG ORAL (00:43)
[2016-07-19] MEDS ORDERED: PANTOPRAZOLE SO40 MG ORAL (00:43)
[2016-07-19 00:44] LABS: BACTERIA,URINE FEW /HPF; RBC,URINE 0-2 /HPF (0 - 2); SQUAMOUS EPITHELIAL CELL,UR MANY /LPF (NONE/OCC)
[2016-07-19] MEDS: D5 1/2NS 1,000 ML IV SCH ×3 (03:39→20:20)
[2016-07-19] MEDS ORDERED: Nystatin Powder 100,000 units/gm 15gm TOPIC SCH (09:00)
[2016-07-19] MEDS: Lactulose 20gm/30ml UDC ORAL SCH ×2 (09:28→17:46)
[2016-07-19] MEDS: Carvedilol 12.5mg tab ORAL SCH ×2 (09:29→20:46)
[2016-07-19] MEDS: Docusate 250mg cap ORAL SCH (09:29)
[2016-07-19] MEDS: Heparin 5000 units/ml inj SUBQ SCH ×2 (09:30→20:45)
[2016-07-19 10:26] LABS: EOSINOPHILS % (AUTO) 2.5 % (0.0-3.0); LYMPHOCYTES % (AUTO) 24.6 % (20.0-45.0); MEAN CORPUSCULAR HEMOGLOBIN 30.3 PG (27.0-31.0); MEAN CORPUSCULAR HGB CONC 32.2 G/DL (32.0-36.0); MEAN CORPUSCULAR VOLUME 94 FL (80-99); MEAN PLATELET VOLUME 7.6 FL (6.5-10.1); MONOCYTES % (AUTO) 7.8 % (1.0-10.0); PLATELET COUNT 239 K/UL (150-450); RED BLOOD COUNT 3.78 M/UL (4.20-5.40); RED CELL DISTRIBUTION WIDTH 13.1 % (11.6-14.8); WHITE BLOOD COUNT 6.3 K/UL (4.8-10.8)
[2016-07-19 10:38] LABS: ALBUMIN/GLOBULIN RATIO 0.9 (1.0-2.7); CALCIUM 9.5 mg/dL (8.6-10.2); CREATININE 1.3 mg/dL (0.5-0.9); GLOMERULAR FILTRATION RATE 41.3 mL/min (>60)
--- NOTE | 2016-07-19 14:15 | GI Initial Consult Note ---
History of Present Illness General Date patient seen: Jul 19, 2016 Time patient seen: 11:00 Reason for Hospitalization: Vomiting Referring physician: DEMLIS TENORIO Reason for Consultation: ANEMIA / VOMITING Present Illness HPI 65 YO female presents to emergency department brought by ambulance sent from longterm facility for 3 episodes of vomiting in addition she complains of headache. Upon arrival patient states that she does not have any complaints. Patient is a poor historian review of nursing facility paperwork in addition to the prior hospital record shows patient recently had urinary tract infection. Pt states she has a history of migraines and only recalls vomiting one time today. Pt has hx of cognitive decline. Denies fevers or chills. HPI & ROS is limited due to patient cooperation. GI CONSULT: HPI as noted above. GI consulted for anemia / vomiting. Pt seen on floor, awake A&Ox4 NAD with no active s/sx of vomiting. Denies any previous hematemesis or coffee grounds. Denies constipation, last BM noted yesterday. No history of any endoscopic procedures. The patient presents today with anemia , elevated lipase and hypoalbuminemia. Home Meds Active Scripts Bacitracin (Bacitracin) 15 Gm Oint...g., 1 APPLIC TOPIC THREE TIMES A DAY for 10 Days, GM Prov:GÓMEZ EASLEY M.D. 02/02/15 Azithromycin* (ZITHROMAX*) 250 Mg Tablet, 250 MG ORAL DAILY, #6 TAB Take two tablets by mouth today, then take one tablet by mouth daily for four days Prov:UMESH RAYO M.D. 01/31/15 Reported Medications Docusate Sodium* (DOCUSATE SODIUM*) 100 Mg Capsule, 100 MG ORAL THREE TIMES A DAY, CAP 07/19/16 Magnesium Oxide (MAGNESIUM OXIDE) 400 Mg Tablet, 400 MG ORAL DAILY, #30 TAB 0 Refills 07/19/16 Pentoxifylline* (TRENTAL*) 400 Mg Tablet.er, 400 MG ORAL, TAB 0 Refills 07/19/16 Linagliptin (TRADJENTA) 5 Mg Tablet, 5 MG PO, TAB 07/19/16 Clonidine Hcl* (CATAPRES*) 0.1 Mg Tablet, 0.1 MG ORAL EVERY 6 HOURS, TAB 07/19/16 Atorvastatin Calcium* (LIPITOR*) 20 Mg Tablet, 20 MG ORAL BEDTIME, TAB 07/19/16 Levothyroxine Sodium* (LEVOTHYROXINE SODIUM*) 25 Mcg Tablet, 25 MCG ORAL DAILY, TAB Take in the morning on an empty stomach, at least 30 minutes before food. 07/19/16 Carvedilol* (CARVEDILOL*) 12.5 Mg Tablet, 12.5 MG ORAL EVERY 12 HOURS, TAB 07/19/16 Famotidine (FAMOTIDINE) 20 Mg Tablet, 20 MG ORAL DAILY, #30 TAB 0 Refills 07/19/16 Lactulose (LACTULOSE*) 20 Gm/30 Ml Solution, 30 ML ORAL, ML 0 Refills 07/19/16 Pantoprazole* (PANTOPRAZOLE*) 40 Mg Tablet.dr, 40 MG ORAL DAILY, TAB 07/19/16 Med list reviewed/reconciled: Yes Allergies: Coded Allergies: PENICILLINS (Verified Allergy, Unknown, 01/31/11) STREPTOMYCIN (Verified Allergy, Unknown, 07/18/16) Uncoded Allergies: EGGS (Allergy, Unknown, 01/31/11) Patient History History Provided By: Patient, Medical Record PMH Narrative Past Medical History: see triage record Past Surgical History: none Pertinent Family History: none Now: No Reviewed Nursing Documentation: PMH: Agreed, PSxH: Agreed Nursing Documentation-PMH Hx Cardiac Problems: No Hx Hypertension: Yes Hx Diabetes: Yes Hx Cancer: No Hx Gastrointestinal Problems: No Hx Neurological Problems: No Hx Seizures: Yes Review of Systems All Other Systems: negative except mentioned in HPI Physical Exam Vital Signs Date Time Temp Pulse Resp B/P Pulse Ox O2 Delivery O2 Flow Rate FiO2 07/18/16 19:57 98.1 74 20 147/79 96 Room Air Sp02 EP Interpretation: reviewed Labs Laboratory Tests Test 07/18/16 23:35 07/18/16 23:55 07/19/16 00:05 07/19/16 09:45 Sodium Level 142 mEQ/L (135-145) 142 mEQ/L (135-145) Potassium Level 4.3 mEQ/L (3.4-4.9) 4.0 mEQ/L (3.4-4.9) Chloride Level 102 mEQ/L (98-107) 101 mEQ/L (98-107) Carbon Dioxide Level 27 mEQ/L (20-30) 29 mEQ/L (20-30) Anion Gap 13 (5-15) 12 (5-15) Blood Urea Nitrogen 27 mg/dL (7-23) H 24 mg/dL (7-23) H Creatinine 1.4 mg/dL (0.5-0.9) H 1.3 mg/dL (0.5-0.9) H Estimat Glomerular Filtration Rate 37.8 mL/min (>60) 41.3 mL/min (>60) Glucose Level 139 mg/dL (74-106) H 160 mg/dL (74-106) H Calcium Level 9.2 mg/dL (8.6-10.2) 9.5 mg/dL (8.6-10.2) Total Bilirubin < 0.2 mg/dL (0.0-1.2) 0.2 mg/dL (0.0-1.2) Aspartate Amino Transf (AST/SGOT) 17 U/L (5-40) 17 U/L (5-40) Alanine Aminotransferase (ALT/SGPT) 15 U/L (3-33) 14 U/L (3-33) Alkaline Phosphatase 75 U/L (35-104) 81 U/L (35-104) Total Protein 6.5 g/dL (6.6-8.7) L 7.0 g/dL (6.6-8.7) Albumin 3.1 g/dL (3.5-5.2) L 3.4 g/dL (3.5-5.2) L Globulin 3.4 g/dL 3.6 g/dL Albumin/Globulin Ratio 0.9 (1.0-2.7) L 0.9 (1.0-2.7) L Lipase 96 U/L (< 60) H 95 U/L (< 60) H White Blood Count 9.0 K/UL (4.8-10.8) 6.3 K/UL (4.8-10.8) Red Blood Count 3.52 M/UL (4.20-5.40) L 3.78 M/UL (4.20-5.40) L Hemoglobin 10.9 G/DL (12.0-16.0) L 11.5 G/DL (12.0-16.0) L Hematocrit 32.8 % (37.0-47.0) L 35.7 % (37.0-47.0) L Mean Corpuscular Volume 93 FL (80-99) 94 FL (80-99) Mean Corpuscular Hemoglobin 30.9 PG (27.0-31.0) 30.3 PG (27.0-31.0) Mean Corpuscular Hemoglobin Concent 33.1 G/DL (32.0-36.0) 32.2 G/DL (32.0-36.0) Red Cell Distribution Width 13.1 % (11.6-14.8) 13.1 % (11.6-14.8) Platelet Count 255 K/UL (150-450) 239 K/UL (150-450) Mean Platelet Volume 7.3 FL (6.5-10.1) 7.6 FL (6.5-10.1) Neutrophils (%) (Auto) 62.3 % (45.0-75.0) 64.0 % (45.0-75.0) Lymphocytes (%) (Auto) 26.2 % (20.0-45.0) 24.6 % (20.0-45.0) Monocytes (%) (Auto) 7.9 % (1.0-10.0) 7.8 % (1.0-10.0) Eosinophils (%) (Auto) 2.4 % (0.0-3.0) 2.5 % (0.0-3.0) Basophils (%) (Auto) 1.2 % (0.0-2.0) 1.0 % (0.0-2.0) Urine Color Pale yellow Urine Appearance Clear Urine pH 6 (4.5-8.0) Urine Specific [place] 1.015 (1.005-1.035) Urine Protein 3+ (NEGATIVE) H Urine Glucose (UA) Negative (NEGATIVE) Urine Ketones Negative (NEGATIVE) Urine Occult Blood Negative (NEGATIVE) Urine Nitrite Negative (NEGATIVE) Urine Bilirubin Negative (NEGATIVE) Urine Urobilinogen Normal MG/DL (0.0-1.0) Urine Leukocyte Esterase Negative (NEGATIVE) Urine RBC 0-2 /HPF (0 - 2) Urine WBC 2-4 /HPF (0 - 2) Urine Squamous Epithelial Cells Many /LPF (NONE/OCC) H Urine Bacteria Few /HPF (NONE) Urine HCG, Qualitative Negative Activated Partial Thromboplast Time 27 SEC (23-33) Amylase Level 78 U/L (10-110) General Appearance: well appearing, no apparent distress, alert, obese Head: normocephalic EENT: PERRL/EOMI, normal ENT inspection Neck: full range of motion, supple Respiratory: normal inspection, chest non-tender, normal breath sounds, no respiratory distress Cardiovascular: normal peripheral pulses, normal rate, regular rhythm Gastrointestinal: normal inspection, non tender, soft Rectal: deferred Genitourinary: no CVA tenderness Musculoskeletal: back normal Neurologic: normal inspection, alert, oriented x3, responsive Psychiatric: normal inspection, judgement/insight normal, memory normal Skin: normal inspection, normal color, no rash Lymphatic: normal inspection, no adenopathy Current Medications Current Medications Medications (Trade) Dose Ordered Sig/Salma Route PRN Reason Start Time Stop Time Status Last Admin Dose Admin Acetaminophen (Tylenol) 650 mg Q4H PRN ORAL fever 07/18/16 23:00 08/17/16 22:59 Al Hydroxide/Mg Hydroxide (Mylanta II) 30 ml Q6H PRN ORAL dyspepsia 07/18/16 23:00 08/17/16 22:59 Atorvastatin Calcium (Lipitor) 20 mg BEDTIME ORAL 07/19/16 21:00 08/18/16 20:59 Carvedilol (Coreg) 12.5 mg EVERY 12 HOURS ORAL 07/19/16 09:00 08/18/16 08:59 07/19/16 09:29 Clonidine HCl (Catapres) 0.1 mg Q4H PRN ORAL SBP >150 07/19/16 08:00 08/18/16 07:59 07/19/16 11:44 Dextrose (Dextrose 50%) STAT PRN IV Hypoglycemia 07/18/16 23:00 08/17/16 22:59 Dextrose/Sodium Chloride (D5 0.45% NS) 1,000 ml @ 75 mls/hr [id number] IV 07/18/16 17:40 08/17/16 17:39 07/19/16 03:39 Diphenhydramine HCl (Benadryl) 25 mg Q6H PRN ORAL Itching/Pruritis 07/18/16 23:00 08/17/16 22:59 Docusate Sodium (Colace) 100 mg DAILY ORAL 07/19/16 09:00 08/18/16 08:59 07/19/16 09:29 Famotidine (Pepcid I.v.) 20 mg QHS IVP 07/19/16 21:00 08/18/16 20:59 UNV Heparin Sodium (Porcine) (Heparin 5000 units/ml) 5,000 units EVERY 12 HOURS SUBQ 07/19/16 09:00 08/18/16 08:59 07/19/16 09:30 Ibuprofen (Motrin) 600 mg Q6H PRN ORAL Moderate Pain (Pain Scale 4-6) 07/19/16 08:00 08/18/16 07:59 Lactulose (Cephulac) 20 gm BID ORAL 07/19/16 09:00 08/18/16 08:59 07/19/16 09:28 Levothyroxine Sodium (Synthroid) 25 mcg DAILY@0630 ORAL 07/20/16 06:30 08/19/16 06:29 Morphine Sulfate (Morphine Sulfate) 2 mg Q4H PRN IVP severe Pain (Pain Scale 7-10) 07/18/16 23:00 07/25/16 22:59 Nitroglycerin (Ntg) 0.4 mg Q5M X 3 DOSES PRN SL Prn Chest Pain 07/18/16 23:00 08/17/16 22:59 Nystatin (Nystop Powder) 1 applic BID TOPIC 07/19/16 09:00 08/18/16 08:59 UNV Ondansetron HCl (Zofran) 4 mg Q6H PRN IVP Nausea & Vomiting 07/18/16 23:00 08/17/16 22:59 Pantoprazole (Protonix) 40 mg DAILY ORAL 07/19/16 09:00 08/18/16 08:59 UNV Pentoxifylline (TRENtal) 400 mg THREE TIMES A DAY ORAL 07/19/16 10:00 08/18/16 09:59 07/19/16 09:28 Polyethylene Glycol (Miralax) 17 gm HSPRN PRN ORAL Constipation 07/18/16 23:00 08/17/16 22:59 Sitagliptin Phosphate (Januvia) 50 mg ACBREAKFAST ORAL 07/20/16 06:30 08/19/16 06:29 Temazepam (Restoril) 15 mg HSPRN PRN ORAL Insomnia 07/18/16 23:00 07/25/16 22:59 GI: Plan Problems: (1) Elevated lipase (2) Hypoalbuminemia (3) Encounter for diagnostic endoscopy (4) Intractable nausea and vomiting (5) Diabetes (6) Anemia Plan EGD scheduled tomorrow to evaluate anemia / abdominal pain with vomiting. - ADA after abdominal U/S, then NPO @ HI. hold all blood thinners. anemia work up cont ppi H2 bowel regime; lactulose + colace fu labs Discussed with Dr. Estes. Thank you for referring this patient, we will follow. Rosmery Baptiste N.P. Jul 19, 2016 14:15
--- NOTE | 2016-07-19 16:07 | Diagnostic Imaging Report ---
Indication: Abdominal pain, abnormal renal function tests Technique: Lorenzo-scale and duplex images of the upper abdomen were obtained Comparison: 01/30/2011 CT scan. Findings: . Gallbladder is not visualized. Note that it was visible on 2011 CT. Sonographic Kapoor's sign is negative. Common bile duct measures 12 mm in diameter. No intrahepatic biliary ductal dilatation. Liver demonstrates normal echogenicity, no focal abnormality. Portal vein and hepatic veins are patent.. Pancreas is unremarkable. Spleen is unremarkable. Left kidney measures 9.2 cm in length. Right kidney measures 9.3 cm length. Both kidneys demonstrate normal echogenicity. There is no hydronephrosis. Right kidney demonstrates a 10 mm cyst. Abdominal aorta is partially obscured by bowel gas, visualized portions are non-aneurysmal. Impression: Nonvisualization of the gallbladder. It may be contracted, or may be surgically absent. Correlate with clinical history and findings Dilated common bile duct, etiology not demonstrated the downstream obstruction should be considered. Correlate with liver function tests. Consider MRCP for further evaluation Incidental finding of small right renal cyst Note incomplete visualization of the abdominal aorta
[2016-07-19] MEDS: Nystatin Powder 100,000 units/gm 15gm TOPIC SCH (18:10)
[2016-07-19] MEDS: Atorvastatin 20mg tab ORAL SCH (20:46)
[2016-07-19] MEDS ORDERED: Famotidine 20 MG/ 2ML VIAL IVP SCH ×2 (21:00)
--- NOTE | 2016-07-19 21:46 | Consultation ---
History of Present Illness General Date patient seen: Jul 19, 2016 Chief Complaint: Vomiting Referring physician: DELMIS TENORIO Reason for Consultation: inpatient management Present Illness HPI 65 year old female with pmhx of COPD, HTN, Seizures, shelter resident presented to emergency department with CC of vomiting in addition she complains of headache. . Pt states she has a history of migraines. Pt has hx of cognitive decline. Denies fevers or chills. She is admitted to med/surg for further evaluation. Allergies: Coded Allergies: PENICILLINS (Verified Allergy, Unknown, 01/31/11) STREPTOMYCIN (Verified Allergy, Unknown, 07/18/16) Uncoded Allergies: EGGS (Allergy, Unknown, 01/31/11) Medication History Scheduled Atorvastatin Calcium* (Lipitor*), 20 MG ORAL BEDTIME, (Reported) Azithromycin* (Zithromax*), 250 MG ORAL DAILY Bacitracin (Bacitracin), 1 APPLIC TOPIC THREE TIMES A DAY Carvedilol* (Carvedilol*), 12.5 MG ORAL EVERY 12 HOURS, (Reported) Clonidine Hcl* (Catapres*), 0.1 MG ORAL EVERY 6 HOURS, (Reported) Docusate Sodium* (Docusate Sodium*), 100 MG ORAL THREE TIMES A DAY, (Reported) Famotidine (Famotidine), 20 MG ORAL DAILY, (Reported) Levothyroxine Sodium* (Levothyroxine Sodium*), 25 MCG ORAL DAILY, (Reported) Magnesium Oxide (Magnesium Oxide), 400 MG ORAL DAILY, (Reported) Pantoprazole* (Pantoprazole*), 40 MG ORAL DAILY, (Reported) Miscellaneous Medications Lactulose (Lactulose*), 30 ML ORAL, (Reported) Linagliptin (Tradjenta), 5 MG PO, (Reported) Pentoxifylline* (Trental*), 400 MG ORAL, (Reported) Patient History Healthcare decision maker pt alert and oriented Resuscitation status Full Code Advanced Directive on File No Past Medical/Surgical History Past Medical/Surgical History: (1) Anemia (2) Diabetes (3) h/o seizure disorder (4) HTN (hypertension) (5) Seizure disorder Review of Systems All Other Systems: negative except mentioned in HPI Physical Exam General Appearance: WD/WN Lines, tubes and drains: peripheral HEENT: normocephalic, atraumatic Neck: non-tender, normal alignment Respiratory/Chest: chest wall non-tender, lungs clear Cardiovascular/Chest: normal peripheral pulses, normal rate Abdomen: normal bowel sounds Genitourinary/Rectal: normal genital exam Extremities: normal range of motion 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 Last 24 Hour Vital Signs Date Time Temp Pulse Resp B/P Pulse Ox O2 Delivery O2 Flow Rate FiO2 07/19/16 20:46 78 110/48 07/19/16 20:00 98.2 82 16 100/48 91 Room Air 07/19/16 18:11 155/78 07/19/16 16:00 96.8 87 19 155/78 94 Room Air 07/19/16 13:34 129/61 07/19/16 13:00 129/61 07/19/16 11:44 190/78 07/19/16 11:38 97.3 79 20 167/69 95 Room Air 07/19/16 09:29 84 164/71 07/19/16 09:28 164/71 07/19/16 08:10 98.0 84 19 164/71 95 Room Air 07/19/16 04:00 97.5 71 20 152/77 97 Room Air 07/19/16 01:05 97.3 65 18 146/70 97 Room Air 07/19/16 00:51 98.1 82 28 148/81 96 Room Air 07/19/16 00:15 98.1 82 28 148/81 96 Room Air 07/18/16 22:37 98.1 87 23 135/76 94 Room Air Intake and Output 07/18/16 07/19/16 18:59 06:59 Intake Total 225 ml Balance 225 ml Intake IV Total 225 ml # Voids 3 Laboratory Tests Test 07/18/16 23:35 07/18/16 23:55 07/19/16 00:05 07/19/16 09:45 Sodium Level 142 mEQ/L (135-145) 142 mEQ/L (135-145) Potassium Level 4.3 mEQ/L (3.4-4.9) 4.0 mEQ/L (3.4-4.9) Chloride Level 102 mEQ/L (98-107) 101 mEQ/L (98-107) Carbon Dioxide Level 27 mEQ/L (20-30) 29 mEQ/L (20-30) Anion Gap 13 (5-15) 12 (5-15) Blood Urea Nitrogen 27 mg/dL (7-23) H 24 mg/dL (7-23) H Creatinine 1.4 mg/dL (0.5-0.9) H 1.3 mg/dL (0.5-0.9) H Estimat Glomerular Filtration Rate 37.8 mL/min (>60) 41.3 mL/min (>60) Glucose Level 139 mg/dL (74-106) H 160 mg/dL (74-106) H Calcium Level 9.2 mg/dL (8.6-10.2) 9.5 mg/dL (8.6-10.2) Total Bilirubin < 0.2 mg/dL (0.0-1.2) 0.2 mg/dL (0.0-1.2) Aspartate Amino Transf (AST/SGOT) 17 U/L (5-40) 17 U/L (5-40) Alanine Aminotransferase (ALT/SGPT) 15 U/L (3-33) 14 U/L (3-33) Alkaline Phosphatase 75 U/L (35-104) 81 U/L (35-104) Total Protein 6.5 g/dL (6.6-8.7) L 7.0 g/dL (6.6-8.7) Albumin 3.1 g/dL (3.5-5.2) L 3.4 g/dL (3.5-5.2) L Globulin 3.4 g/dL 3.6 g/dL Albumin/Globulin Ratio 0.9 (1.0-2.7) L 0.9 (1.0-2.7) L Lipase 96 U/L (< 60) H 95 U/L (< 60) H White Blood Count 9.0 K/UL (4.8-10.8) 6.3 K/UL (4.8-10.8) Red Blood Count 3.52 M/UL (4.20-5.40) L 3.78 M/UL (4.20-5.40) L Hemoglobin 10.9 G/DL (12.0-16.0) L 11.5 G/DL (12.0-16.0) L Hematocrit 32.8 % (37.0-47.0) L 35.7 % (37.0-47.0) L Mean Corpuscular Volume 93 FL (80-99) 94 FL (80-99) Mean Corpuscular Hemoglobin 30.9 PG (27.0-31.0) 30.3 PG (27.0-31.0) Mean Corpuscular Hemoglobin Concent 33.1 G/DL (32.0-36.0) 32.2 G/DL (32.0-36.0) Red Cell Distribution Width 13.1 % (11.6-14.8) 13.1 % (11.6-14.8) Platelet Count 255 K/UL (150-450) 239 K/UL (150-450) Mean Platelet Volume 7.3 FL (6.5-10.1) 7.6 FL (6.5-10.1) Neutrophils (%) (Auto) 62.3 % (45.0-75.0) 64.0 % (45.0-75.0) Lymphocytes (%) (Auto) 26.2 % (20.0-45.0) 24.6 % (20.0-45.0) Monocytes (%) (Auto) 7.9 % (1.0-10.0) 7.8 % (1.0-10.0) Eosinophils (%) (Auto) 2.4 % (0.0-3.0) 2.5 % (0.0-3.0) Basophils (%) (Auto) 1.2 % (0.0-2.0) 1.0 % (0.0-2.0) Urine Color Pale yellow Urine Appearance Clear Urine pH 6 (4.5-8.0) Urine Specific [place] 1.015 (1.005-1.035) Urine Protein 3+ (NEGATIVE) H Urine Glucose (UA) Negative (NEGATIVE) Urine Ketones Negative (NEGATIVE) Urine Occult Blood Negative (NEGATIVE) Urine Nitrite Negative (NEGATIVE) Urine Bilirubin Negative (NEGATIVE) Urine Urobilinogen Normal MG/DL (0.0-1.0) Urine Leukocyte Esterase Negative (NEGATIVE) Urine RBC 0-2 /HPF (0 - 2) Urine WBC 2-4 /HPF (0 - 2) Urine Squamous Epithelial Cells Many /LPF (NONE/OCC) H Urine Bacteria Few /HPF (NONE) Urine HCG, Qualitative Negative Activated Partial Thromboplast Time 27 SEC (23-33) Amylase Level 78 U/L (10-110) Height (Feet): 5 Height (Inches): 5.00 Weight (Pounds): 200 Medications Current Medications Medications (Trade) Dose Ordered Sig/Salma Route PRN Reason Start Time Stop Time Status Last Admin Dose Admin Acetaminophen (Tylenol) 650 mg Q4H PRN ORAL fever 07/18/16 23:00 08/17/16 22:59 Al Hydroxide/Mg Hydroxide (Mylanta II) 30 ml Q6H PRN ORAL dyspepsia 07/18/16 23:00 08/17/16 22:59 Atorvastatin Calcium (Lipitor) 20 mg BEDTIME ORAL 07/19/16 21:00 08/18/16 20:59 07/19/16 20:46 Carvedilol (Coreg) 12.5 mg EVERY 12 HOURS ORAL 07/19/16 09:00 08/18/16 08:59 07/19/16 09:29 Clonidine HCl (Catapres) 0.1 mg Q4H PRN ORAL SBP >150 07/19/16 08:00 08/18/16 07:59 07/19/16 11:44 Dextrose (Dextrose 50%) STAT PRN IV Hypoglycemia 07/18/16 23:00 08/17/16 22:59 Dextrose/Sodium Chloride (D5 0.45% NS) 1,000 ml @ 75 mls/hr [id number] IV 07/18/16 17:40 08/17/16 17:39 07/19/16 03:39 Diphenhydramine HCl (Benadryl) 25 mg Q6H PRN ORAL Itching/Pruritis 07/18/16 23:00 08/17/16 22:59 Docusate Sodium (Colace) 100 mg DAILY ORAL 07/19/16 09:00 08/18/16 08:59 07/19/16 09:29 Heparin Sodium (Porcine) (Heparin 5000 units/ml) 5,000 units EVERY 12 HOURS SUBQ 07/19/16 09:00 08/18/16 08:59 07/19/16 09:30 Ibuprofen (Motrin) 600 mg Q6H PRN ORAL Moderate Pain (Pain Scale 4-6) 07/19/16 08:00 08/18/16 07:59 Lactulose (Cephulac) 20 gm BID ORAL 07/19/16 09:00 08/18/16 08:59 07/19/16 09:28 Levothyroxine Sodium (Synthroid) 25 mcg DAILY@0630 ORAL 07/20/16 06:30 08/19/16 06:29 Morphine Sulfate (Morphine Sulfate) 2 mg Q4H PRN IVP severe Pain (Pain Scale 7-10) 07/18/16 23:00 07/25/16 22:59 Nitroglycerin (Ntg) 0.4 mg Q5M X 3 DOSES PRN SL Prn Chest Pain 07/18/16 23:00 08/17/16 22:59 Nystatin (Nystop Powder) 1 applic BID TOPIC 07/19/16 18:00 08/18/16 17:59 07/19/16 18:10 Ondansetron HCl (Zofran) 4 mg Q6H PRN IVP Nausea & Vomiting 07/18/16 23:00 08/17/16 22:59 Pantoprazole (Protonix) 40 mg DAILY ORAL 07/19/16 09:00 08/18/16 08:59 Future hold Pentoxifylline (TRENtal) 400 mg THREE TIMES A DAY ORAL 07/19/16 10:00 08/18/16 09:59 07/19/16 18:11 Polyethylene Glycol (Miralax) 17 gm HSPRN PRN ORAL Constipation 07/18/16 23:00 08/17/16 22:59 Sitagliptin Phosphate (Januvia) 50 mg ACBREAKFAST ORAL 07/20/16 06:30 08/19/16 06:29 Temazepam (Restoril) 15 mg HSPRN PRN ORAL Insomnia 07/18/16 23:00 07/25/16 22:59 Assessment/Plan Problem List: (1) Intractable nausea and vomiting ICD Codes: R11.2 - Nausea with vomiting, unspecified SNOMED: 241164563, 476906572 (2) Seizure disorder ICD Codes: G40.909 - Epilepsy, unspecified, not intractable, without status epilepticus SNOMED: 271410059 (3) Anemia ICD Codes: D64.9 - Anemia, unspecified SNOMED: 876070331 (4) HTN (hypertension) ICD Codes: I10 - Essential (primary) hypertension SNOMED: 66832688 Assessment/Plan NPO, IV fluids check electrolytes GI evaluation sliding scale pt/ot evaluation LAYLA ANGUIANO Jul 19, 2016 21:46
[2016-07-20] VITALS: BP 147/77
[2016-07-20] MEDS: D5 1/2NS 1,000 ML IV SCH (00:26)
--- NOTE | 2016-07-20 01:08 | History and Physical Report ---
DATE OF ADMISSION: 07/18/2016 DATE: 07/19/2016 at 3 p.m. CONSULTANTS: 1. Jose Martin Estes M.D. 2. Juan Palma M.D. 3. Layla Jack M.D. CHIEF COMPLAINT: Vomiting x3. HISTORY OF PRESENT ILLNESS: The patient is a 65-year-old female from [facility] presented with above-mentioned diagnosis and admitted to medical floor for further treatment. Currently, sleeping in bed and not talking much. PAST MEDICAL HISTORY: Vomiting, weakness, dizziness, encephalopathy, seizure, hypertension, hyperlipidemia, acute renal failure, diabetes, and anemia. PAST SURGICAL HISTORY: Unknown. MEDICATIONS: Synthroid, Januvia, Pepcid, Lipitor, Trental, heparin, Protonix, Cephulac, Colace, nystatin, Coreg, Motrin, and Catapres. ALLERGIES: Penicillin and streptomycin. SOCIAL HISTORY: No smoking. No alcohol. No intravenous drug use. FAMILY HISTORY: Noncontributory. REVIEW OF SYSTEMS: Not available. PHYSICAL EXAMINATION: GENERAL: Calm in bed, oriented x1, no acute distress. VITAL SIGNS: Temperature is 97 degrees, pulse 89, respirations 20, and blood pressure 167/71. CARDIOVASCULAR: No murmur. LUNGS: Poor air exchange. ABDOMEN: Positive bowel sounds. Nontender and nondistended. EXTREMITIES: No cyanosis, clubbing, or edema. NEUROLOGIC: The patient moves all extremities. Does not want to follow commands. LABORATORY DATA: Labs show hemoglobin 11.5. CBC is normal. BMP shows BUN and creatinine 24 and 1.3, and glucose 160. Albumin 3.4. PTT is 27. Urinalysis, 3+ protein. ASSESSMENT: 1. Vomiting. 2. Weakness. 3. Dizziness. 4. Anemia. 5. Encephalopathy. 6. Seizure. 7. Hypertension. 8. Hyperlipidemia. 9. Acute renal failure. 10. Diabetes. PLAN: Continue premedications. Dr. Estes, Dr. Palma, Dr. Jack, Dr. Schmidt, and Dr. Vegas to consult. OT, PT, and dietary evaluation. CBC and BMP in the morning. Antiemetics p.r.n. GI followup. We will continue to follow the patient medically. Reilly Ely D.O. DR: Nikita JOB#: [id number] CC:
[2016-07-20 04:00] VITALS: BP 152/78
[2016-07-20] MEDS: sitaGLIPtin 50mg tab ORAL SCH (05:53)
[2016-07-20] MEDS: Levothyroxine 25mcg tab ORAL SCH (05:53)
[2016-07-20 07:32] LABS: BASOPHILS % (AUTO) 1.3 % (0.0-2.0); EOSINOPHILS % (AUTO) 3.1 % (0.0-3.0); LYMPHOCYTES % (AUTO) 28.6 % (20.0-45.0); MEAN CORPUSCULAR HEMOGLOBIN 30.6 PG (27.0-31.0); MEAN CORPUSCULAR HGB CONC 32.4 G/DL (32.0-36.0); MEAN CORPUSCULAR VOLUME 95 FL (80-99); MEAN PLATELET VOLUME 7.9 FL (6.5-10.1); MONOCYTES % (AUTO) 9.5 % (1.0-10.0); NEUTROPHILS % (AUTO) 57.4 % (45.0-75.0); PLATELET COUNT 220 K/UL (150-450); RED BLOOD COUNT 3.54 M/UL (4.20-5.40); RED CELL DISTRIBUTION WIDTH 13.6 % (11.6-14.8); WHITE BLOOD COUNT 6.1 K/UL (4.8-10.8)
[2016-07-20] MEDS: Heparin 5000 units/ml inj SUBQ SCH ×2 (07:43→20:58)
[2016-07-20 07:57] LABS: INR 1.1 (0.9-1.1); PROTHROMBIN TIME 10.7 SEC (9.30-11.50)
[2016-07-20 08:03] LABS: THYROID STIMULATING HORMONE 3.38 uIU/mL (0.300-4.500)
[2016-07-20 08:07] LABS: CALCIUM 9.3 mg/dL (8.6-10.2); CREATININE 1.4 mg/dL (0.5-0.9); GLOMERULAR FILTRATION RATE 37.8 mL/min (>60); POTASSIUM 3.9 mEQ/L (3.4-4.9)
--- NOTE | 2016-07-20 08:07 | Anethesia Preoperative Eval ---
Anesthesia Pre-op PMH/ROS General Date of Evaluation: Jul 20, 2016 Anesthesiologist: Michael ASA Score: ASA 3 Mallampati Score Class I : Soft palate, uvula, fauces, pillars visible Class II: Soft palate, uvula, fauces visible Class III: Soft palate, base of uvula visible Class IV: Only hard plate visible Mallampati Classification: Class II Surgeon: Meera Diagnosis: ?GI bleed Surgical Procedure: EGD Anesthesia History: none Family History: no anesthesia problems Allergies: Coded Allergies: PENICILLINS (Verified Allergy, Unknown, 01/31/11) STREPTOMYCIN (Verified Allergy, Unknown, 07/18/16) Uncoded Allergies: EGGS (Allergy, Unknown, 01/31/11) Medications: see eMAR Past Medical History Cardiovascular: Reports: HTN, Denies: CAD, MS, arrhythmia, other, valve dz Pulmonary: Reports: COPD, Denies: PRAKASH, asthma, other Gastrointestinal/Genitourinary: Reports: CRI - acute on chronic, other - gastritis, pancreatitis, Denies: ESRD, GERD Neurologic/Psychiatric: Reports: other - seizurs, Denies: CVA, TIA, dementia, depression/anxiety Endocrine: Reports: DM, hypothyroidism, Denies: other, steroids HEENT: Denies: [place] (L), [place] (R), cataract (L), cataract (R), glaucoma, other Hematology/Immune: Reports: anemia, Denies: DVT, bleeding disorder, other Musculoskeletal/Integumentary: Denies: DDD, DJD, OA, RA, edema, other Other: obesity Anesthesia Pre-op Phys. Exam Physician Exam Last Vital Signs Date Time Temp Pulse Resp B/P Pulse Ox O2 Delivery O2 Flow Rate FiO2 07/20/16 04:00 97.7 85 19 152/78 96 Room Air Constitutional: NAD Cardiovascular: RRR Respiratory: CTA Airway Exam Mallampati Score: Class II MO: full ROM: full Anesthesia Pre-op A/P Labs Hematology Test 07/19/16 09:45 07/20/16 06:30 White Blood Count 6.3 K/UL (4.8-10.8) 6.1 K/UL (4.8-10.8) Red Blood Count 3.78 M/UL (4.20-5.40) L 3.54 M/UL (4.20-5.40) L Hemoglobin 11.5 G/DL (12.0-16.0) L 10.8 G/DL (12.0-16.0) L Hematocrit 35.7 % (37.0-47.0) L 33.5 % (37.0-47.0) L Mean Corpuscular Volume 94 FL (80-99) 95 FL (80-99) Mean Corpuscular Hemoglobin 30.3 PG (27.0-31.0) 30.6 PG (27.0-31.0) Mean Corpuscular Hemoglobin Concent 32.2 G/DL (32.0-36.0) 32.4 G/DL (32.0-36.0) Red Cell Distribution Width 13.1 % (11.6-14.8) 13.6 % (11.6-14.8) Platelet Count 239 K/UL (150-450) 220 K/UL (150-450) Mean Platelet Volume 7.6 FL (6.5-10.1) 7.9 FL (6.5-10.1) Neutrophils (%) (Auto) 64.0 % (45.0-75.0) 57.4 % (45.0-75.0) Lymphocytes (%) (Auto) 24.6 % (20.0-45.0) 28.6 % (20.0-45.0) Monocytes (%) (Auto) 7.8 % (1.0-10.0) 9.5 % (1.0-10.0) Eosinophils (%) (Auto) 2.5 % (0.0-3.0) 3.1 % (0.0-3.0) H Basophils (%) (Auto) 1.0 % (0.0-2.0) 1.3 % (0.0-2.0) Reticulocyte Count Pending Coagulation Test 07/19/16 09:45 07/20/16 06:30 Activated Partial Thromboplast Time 27 SEC (23-33) 28 SEC (23-33) Prothrombin Time 10.7 SEC (9.30-11.50) Prothromb Time International Ratio 1.1 (0.9-1.1) Chemistry Test 07/19/16 09:45 07/20/16 06:30 Sodium Level 142 mEQ/L (135-145) Pending Potassium Level 4.0 mEQ/L (3.4-4.9) Pending Chloride Level 101 mEQ/L (98-107) Pending Carbon Dioxide Level 29 mEQ/L (20-30) Pending Anion Gap 12 (5-15) Blood Urea Nitrogen 24 mg/dL (7-23) H Pending Creatinine 1.3 mg/dL (0.5-0.9) H Pending Estimat Glomerular Filtration Rate 41.3 mL/min (>60) Pending Glucose Level 160 mg/dL (74-106) H Pending Calcium Level 9.5 mg/dL (8.6-10.2) Pending Total Bilirubin 0.2 mg/dL (0.0-1.2) Aspartate Amino Transf (AST/SGOT) 17 U/L (5-40) Alanine Aminotransferase (ALT/SGPT) 14 U/L (3-33) Alkaline Phosphatase 81 U/L (35-104) Total Protein 7.0 g/dL (6.6-8.7) Albumin 3.4 g/dL (3.5-5.2) L Globulin 3.6 g/dL Albumin/Globulin Ratio 0.9 (1.0-2.7) L Amylase Level 78 U/L (10-110) Lipase 95 U/L (< 60) H Iron Level Pending Unsaturated Iron Binding Pending Ferritin 27 ng/mL (13-150) Carcinoembryonic Antigen Pending Vitamin B12 Level Pending Folate Pending Thyroid Stimulating Hormone (TSH) 3.380 uIU/mL (0.300-4.500) Free Thyroxine Pending Studies Pre-op Studies: EKG - sr Risk Assessment & Plan Assessment: ASA III Plan: MAC Status Change Before Surgery: No Pre-Antibiotics Drug: N/A GARRY POE M.D. Jul 20, 2016 08:07
[2016-07-20 08:14] VITALS: BP 175/80
--- NOTE | 2016-07-20 08:30 | General Progress Note ---
Progress Note Progress Note [id number] full consult dictated OMAR JAUREGUI Jul 20, 2016 08:30
[2016-07-20] MEDS: Lactulose 20gm/30ml UDC ORAL SCH ×2 (08:44→17:54)
[2016-07-20] MEDS: Docusate 250mg cap ORAL SCH (08:45)
[2016-07-20] MEDS: Nystatin Powder 100,000 units/gm 15gm TOPIC SCH ×2 (09:00→17:55)
[2016-07-20] MEDS: Carvedilol 12.5mg tab ORAL SCH ×2 (10:57→20:58)
[2016-07-20 11:46] VITALS: BP 161/91
--- NOTE | 2016-07-20 11:58 | Consultation ---
DATE OF CONSULTATION: NEPHROLOGY CONSULTATION CONSULTING PHYSICIAN: Ivelisse Vegas M.D. REFERRING PHYSICIAN: Reilly Ely M.D. REASON FOR CONSULTATION: Acute renal failure versus chronic kidney disease. HISTORY OF PRESENT ILLNESS: The patient is a 65-year-old, the female with past medical history significant for history of dyslipidemia, hypertension, hypothyroidism, history of diabetes and hypertension, who was presented to [facility] complaining of intractable nausea and vomiting also complained of headache. Upon arrival, the patient found to be anemic and having nausea and vomiting, was admitted for evaluation and possible endoscopy, but the patient found continue to have an increasing elevation in her creatinine. I was called for management of renal disease and electrolyte imbalance. PAST MEDICAL HISTORY: Includin. Diabetes. 2. Hypertension. 3. Hypothyroidism. 4. Dyslipidemia. 5. History of coronary artery disease. PAST SURGICAL HISTORY: None. MEDICATIONS: Including. 1. Bactrim. 2. Azithromycin. 3. Colace. 4. Levothyroxine 25 mg 5. Clonidine p.r.n. Blood pressure more than 160. 6. 5 mg p.o. daily. 7. Trental 400 mg p.o. daily. 8. Carvedilol 12.5 mg p.o. daily. 9. Protonix 40 mg p.o. daily. 10. Famotidine 20 mg p.o. daily. ALLERGIES: She is allergic to penicillin and streptomycin. SOCIAL HISTORY: She lives at custodial. There is no history of tobacco, alcohol or drug use. FAMILY HISTORY: Noncontributory. REVIEW OF SYSTEMS: General: The patient somehow is confused and do not remainder any of her history. In general, she denies any weight loss, fever, chills or night sweats. Head And Neck: Denies any dysphagia, odynophagia, blurry vision, headache, or neck stiffness. Pulmonary: Mild shortness of breath. No cough. No sputum. Cardiovascular: Denies any chest pain or palpitations. Gastrointestinal: She complained of nausea or vomiting on admission. Denies any nausea or vomiting today. Denies any melena, hematemesis, or hematochezia. Genitourinary: Denies any dysuria, frequency, or hematuria. PHYSICAL EXAMINATION: VITAL SIGNS: The patient had temperature of 98.0 degrees, and blood pressure of 155/78, pulse rate of 80, and respiratory rate of 18. HEAD AND NECK: No JVP. No LAD. No thyromegaly. Extraocular movement intact. Pupils are reactive to light and accommodation. LUNGS: Clear to auscultation. CARDIAC: Regular rate and rhythm. S1 and S2. No murmur. No rub. ABDOMEN: Soft, nontender, and nondistended. EXTREMITIES: Trace edema. No clubbing. No cyanosis. LABORATORY AND DIAGNOSTIC DATA: Laboratory values, the patient has WBC count of 6.1, hemoglobin of 10.8, hematocrit of 33.5, and platelet count of 220,000. Chemistry revealed sodium of 142, potassium 3.9, chloride 100, bicarbonate 29, BUN of 23, creatinine of 1.4, glucose of 143, and calcium of 9.3. AST of 17, ALT of 14, and albumin of 3.4. Urine revealed specific gravity of 1015, protein 2+, WBC 0-2, RBCs 2-4, and bacteria many. ASSESSMENT: 1. Acute versus chronic kidney disease. 2. Possible diabetic nephropathy with 3+ proteinuria. 3. Intractable nausea and vomiting. 4. Uncontrolled hypertension. 5. Diabetes. 6. Hypothyroidism. PLAN: Plan for the patient to obtain a random urine, protein, creatinine ratio to calculate the proteinuria. Check the urine, sodium and creatinine to calculate fractional excretion of sodium. I would also order urine microalbumin and creatinine ratio. We checked a hemoglobin A1c, recommended for this patient is 6 to 7. Check the lipid panel. Avoid any NSAIDs or nephrotoxic, and start the patient on hydration I would like to thank Dr. Reilly Ely for further care of this patient. Ivelisse Vegas M.D. DR: Rosalia JOB#: [id number] CC:
--- NOTE | 2016-07-20 12:28 | General Progress Note ---
Assessment/Plan Problem List: (1) HTN (hypertension) ICD Codes: I10 - Essential (primary) hypertension SNOMED: 58522772 (2) Seizure disorder ICD Codes: G40.909 - Epilepsy, unspecified, not intractable, without status epilepticus SNOMED: 172278402 (3) Elevated lipase ICD Codes: R74.8 - Abnormal levels of other serum enzymes SNOMED: 878003172 (4) Hypoalbuminemia ICD Codes: E88.09 - Other disorders of plasma-protein metabolism, not elsewhere classified SNOMED: 292583788 (5) Diabetes ICD Codes: E11.9 - Type 2 diabetes mellitus without complications SNOMED: 14651616 (6) Anemia ICD Codes: D64.9 - Anemia, unspecified SNOMED: 852853239 Assessment/Plan esophagogastroduodenoscopy was canceled due to AMS stable H&H fu stool ob fu labs Subjective ROS Limited/Unobtainable: No Allergies: Coded Allergies: PENICILLINS (Verified Allergy, Unknown, 01/31/11) STREPTOMYCIN (Verified Allergy, Unknown, 07/18/16) Uncoded Allergies: EGGS (Allergy, Unknown, 01/31/11) Subjective patient is confused Objective Last 24 Hour Vital Signs Date Time Temp Pulse Resp B/P Pulse Ox O2 Delivery O2 Flow Rate FiO2 07/20/16 11:46 98.4 80 20 161/91 99 Room Air 07/20/16 10:57 85 175/80 07/20/16 10:57 175/80 07/20/16 08:14 98.3 85 21 175/80 97 Room Air 07/20/16 04:00 97.7 85 19 152/78 96 Room Air 07/20/16 00:00 97.9 89 19 147/77 97 Room Air 07/19/16 20:46 78 110/48 07/19/16 20:00 98.2 82 16 100/48 91 Room Air 07/19/16 18:11 155/78 07/19/16 16:00 96.8 87 19 155/78 94 Room Air 07/19/16 13:34 129/61 07/19/16 13:00 129/61 Intake and Output 07/19/16 07/20/16 19:00 07:00 Intake Total 375 ml 675.0 ml Balance 375 ml 675.0 ml Intake IV Total 375 ml 675.0 ml # Voids 4 3 Laboratory Tests 07/20/16 06:30: White Blood Count 6.1, Red Blood Count 3.54L, Hemoglobin 10.8L, Hematocrit 33.5L , Mean Corpuscular Volume 95, Mean Corpuscular Hemoglobin 30.6, Mean Corpuscular Hemoglobin Concent 32.4, Red Cell Distribution Width 13.6, Platelet Count 220, Mean Platelet Volume 7.9, Neutrophils (%) (Auto) 57.4, Lymphocytes (% ) (Auto) 28.6, Monocytes (%) (Auto) 9.5, Eosinophils (%) (Auto) 3.1H, Basophils (%) (Auto) 1.3, Reticulocyte Count 1.3, Prothrombin Time 10.7, Prothromb Time International Ratio 1.1, Activated Partial Thromboplast Time 28, Sodium Level 142, Potassium Level 3.9, Chloride Level 100, Carbon Dioxide Level 29, Anion Gap 13, Blood Urea Nitrogen 23, Creatinine 1.4H, Estimat Glomerular Filtration Rate 37.8, Glucose Level 143H, Calcium Level 9.3, Iron Level 64, Total Iron Binding Capacity 287, Percent Iron Saturation 22, Unsaturated Iron Binding 223, Ferritin 27, Carcinoembryonic Antigen 2.5, Vitamin B12 Level 572, Folate [ Pending], Thyroid Stimulating Hormone (TSH) 3.380, Free Thyroxine 1.21 Height (Feet): 5 Height (Inches): 5.00 Weight (Pounds): 200 General Appearance: no apparent distress EENT: normal ENT inspection Neck: supple Cardiovascular: normal rate Respiratory/Chest: decreased breath sounds Abdomen: normal bowel sounds, non tender, soft Extremities: non-tender CHRIS PETERSON Jul 20, 2016 12:28
--- NOTE | 2016-07-20 14:26 | General Progress Note ---
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 (3) Anemia ICD Codes: D64.9 - Anemia, unspecified SNOMED: 184023701 (4) Diabetes ICD Codes: E11.9 - Type 2 diabetes mellitus without complications SNOMED: 30000570 (5) Intractable nausea and vomiting ICD Codes: R11.2 - Nausea with vomiting, unspecified SNOMED: 748705232, 440521708 (6) Seizure disorder ICD Codes: G40.909 - Epilepsy, unspecified, not intractable, without status epilepticus SNOMED: 566232654 (7) HTN (hypertension) ICD Codes: I10 - Essential (primary) hypertension SNOMED: 00379720 Status: stable, progressing, tolerating diet Assessment/Plan ot pt diet antiemetic gi f/u cbc bmp am Subjective Constitutional: Reports: weakness Allergies: Coded Allergies: PENICILLINS (Verified Allergy, Unknown, 01/31/11) STREPTOMYCIN (Verified Allergy, Unknown, 07/18/16) Uncoded Allergies: EGGS (Allergy, Unknown, 01/31/11) All Systems: reviewed and negative except above Subjective sleepy calm Objective Last 24 Hour Vital Signs Date Time Temp Pulse Resp B/P Pulse Ox O2 Delivery O2 Flow Rate FiO2 07/20/16 12:34 161/91 07/20/16 11:46 98.4 80 20 161/91 99 Room Air 07/20/16 10:57 85 175/80 07/20/16 10:57 175/80 07/20/16 08:14 98.3 85 21 175/80 97 Room Air 07/20/16 04:00 97.7 85 19 152/78 96 Room Air 07/20/16 00:00 97.9 89 19 147/77 97 Room Air 07/19/16 20:46 78 110/48 07/19/16 20:00 98.2 82 16 100/48 91 Room Air 07/19/16 18:11 155/78 07/19/16 16:00 96.8 87 19 155/78 94 Room Air Intake and Output 07/19/16 07/20/16 19:00 07:00 Intake Total 375 ml 675.0 ml Balance 375 ml 675.0 ml Intake IV Total 375 ml 675.0 ml # Voids 4 3 Laboratory Tests 07/20/16 06:30: White Blood Count 6.1, Red Blood Count 3.54L, Hemoglobin 10.8L, Hematocrit 33.5L , Mean Corpuscular Volume 95, Mean Corpuscular Hemoglobin 30.6, Mean Corpuscular Hemoglobin Concent 32.4, Red Cell Distribution Width 13.6, Platelet Count 220, Mean Platelet Volume 7.9, Neutrophils (%) (Auto) 57.4, Lymphocytes (% ) (Auto) 28.6, Monocytes (%) (Auto) 9.5, Eosinophils (%) (Auto) 3.1H, Basophils (%) (Auto) 1.3, Reticulocyte Count 1.3, Prothrombin Time 10.7, Prothromb Time International Ratio 1.1, Activated Partial Thromboplast Time 28, Sodium Level 142, Potassium Level 3.9, Chloride Level 100, Carbon Dioxide Level 29, Anion Gap 13, Blood Urea Nitrogen 23, Creatinine 1.4H, Estimat Glomerular Filtration Rate 37.8, Glucose Level 143H, Calcium Level 9.3, Iron Level 64, Total Iron Binding Capacity 287, Percent Iron Saturation 22, Unsaturated Iron Binding 223, Ferritin 27, Carcinoembryonic Antigen 2.5, Vitamin B12 Level 572, Folate [ Pending], Thyroid Stimulating Hormone (TSH) 3.380, Free Thyroxine 1.21 Height (Feet): 5 Height (Inches): 5.00 Weight (Pounds): 200 General Appearance: lethargic EENT: normal ENT inspection Neck: normal alignment Cardiovascular: normal peripheral pulses, normal rate, regular rhythm Respiratory/Chest: chest wall non-tender, lungs clear, normal breath sounds Abdomen: normal bowel sounds, non tender, soft Extremities: normal inspection Edema: no edema noted Arm (L), no edema noted Arm (R), no edema noted Leg (L), no edema noted Leg (R), no edema noted Pedal (L), no edema noted Pedal (R), no edema noted Generalized Neurologic: motor weakness Skin: normal pigmentation, warm/dry DELMIS TENORIO Jul 20, 2016 14:26
[2016-07-20] MEDS ORDERED: D5 1/2NS 1000ml IV ONE (15:04)
[2016-07-20 16:00] VITALS: BP 129/65
--- NOTE | 2016-07-20 16:25 | Pulmonology Progress Note ---
Assessment/Plan Problems: (1) Intractable nausea and vomiting (2) Seizure disorder (3) Anemia (4) HTN (hypertension) Assessment/Plan IV fluids GI evaluation in process sliding scale insulin coverage dvt prophylaxis Subjective ROS Limited/Unobtainable: No Interval Events: no new complains Allergies: Coded Allergies: PENICILLINS (Verified Allergy, Unknown, 01/31/11) STREPTOMYCIN (Verified Allergy, Unknown, 07/18/16) Uncoded Allergies: EGGS (Allergy, Unknown, 01/31/11) Objective Last 24 Hour Vital Signs Date Time Temp Pulse Resp B/P Pulse Ox O2 Delivery O2 Flow Rate FiO2 07/20/16 12:34 161/91 07/20/16 11:46 98.4 80 20 161/91 99 Room Air 07/20/16 10:57 85 175/80 07/20/16 10:57 175/80 07/20/16 08:14 98.3 85 21 175/80 97 Room Air 07/20/16 04:00 97.7 85 19 152/78 96 Room Air 07/20/16 00:00 97.9 89 19 147/77 97 Room Air 07/19/16 20:46 78 110/48 07/19/16 20:00 98.2 82 16 100/48 91 Room Air 07/19/16 18:11 155/78 Intake and Output 07/19/16 07/20/16 19:00 07:00 Intake Total 375 ml 675.0 ml Balance 375 ml 675.0 ml IV Total 375 ml 675.0 ml # Voids 4 3 Objective General Appearance: WD/WN, Lines, tubes and drains: peripheral, central line HEENT: normocephalic Neck: non-tender Respiratory/Chest: chest wall non-tender, lungs clear Cardiovascular/Chest: normal peripheral pulses, normal rate Abdomen: normal bowel sounds, non tender Genitourinary/Rectal: normal genital exam Extremities: normal range of motion 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 Laboratory Tests 07/20/16 06:30: White Blood Count 6.1, Red Blood Count 3.54L, Hemoglobin 10.8L, Hematocrit 33.5L , Mean Corpuscular Volume 95, Mean Corpuscular Hemoglobin 30.6, Mean Corpuscular Hemoglobin Concent 32.4, Red Cell Distribution Width 13.6, Platelet Count 220, Mean Platelet Volume 7.9, Neutrophils (%) (Auto) 57.4, Lymphocytes (% ) (Auto) 28.6, Monocytes (%) (Auto) 9.5, Eosinophils (%) (Auto) 3.1H, Basophils (%) (Auto) 1.3, Reticulocyte Count 1.3, Prothrombin Time 10.7, Prothromb Time International Ratio 1.1, Activated Partial Thromboplast Time 28, Sodium Level 142, Potassium Level 3.9, Chloride Level 100, Carbon Dioxide Level 29, Anion Gap 13, Blood Urea Nitrogen 23, Creatinine 1.4H, Estimat Glomerular Filtration Rate 37.8, Glucose Level 143H, Calcium Level 9.3, Iron Level 64, Total Iron Binding Capacity 287, Percent Iron Saturation 22, Unsaturated Iron Binding 223, Ferritin 27, Carcinoembryonic Antigen 2.5, Vitamin B12 Level 572, Folate [ Pending], Thyroid Stimulating Hormone (TSH) 3.380, Free Thyroxine 1.21 Current Medications Medications (Trade) Dose Ordered Sig/Salma Route PRN Reason Start Time Stop Time Status Last Admin Dose Admin Acetaminophen (Tylenol) 650 mg Q4H PRN ORAL fever 07/18/16 23:00 08/17/16 22:59 Al Hydroxide/Mg Hydroxide (Mylanta II) 30 ml Q6H PRN ORAL dyspepsia 07/18/16 23:00 08/17/16 22:59 Atorvastatin Calcium (Lipitor) 20 mg BEDTIME ORAL 07/19/16 21:00 08/18/16 20:59 07/19/16 20:46 Carvedilol (Coreg) 12.5 mg EVERY 12 HOURS ORAL 07/19/16 09:00 08/18/16 08:59 07/20/16 10:57 Clonidine HCl (Catapres) 0.1 mg Q4H PRN ORAL SBP >150 07/19/16 08:00 08/18/16 07:59 07/20/16 10:57 Dextrose (Dextrose 50%) STAT PRN IV Hypoglycemia 07/18/16 23:00 08/17/16 22:59 Dextrose/Sodium Chloride (D5 0.45% NS) 1,000 ml @ 75 mls/hr [id number] IV 07/18/16 17:40 08/17/16 17:39 07/20/16 00:26 Diphenhydramine HCl (Benadryl) 25 mg Q6H PRN ORAL Itching/Pruritis 07/18/16 23:00 08/17/16 22:59 Docusate Sodium (Colace) 100 mg DAILY ORAL 07/19/16 09:00 08/18/16 08:59 07/19/16 09:29 Heparin Sodium (Porcine) (Heparin 5000 units/ml) 5,000 units EVERY 12 HOURS SUBQ 07/19/16 09:00 08/18/16 08:59 07/19/16 09:30 Ibuprofen (Motrin) 600 mg Q6H PRN ORAL Moderate Pain (Pain Scale 4-6) 07/19/16 08:00 08/18/16 07:59 Lactulose (Cephulac) 20 gm BID ORAL 07/19/16 09:00 08/18/16 08:59 07/19/16 09:28 Levothyroxine Sodium (Synthroid) 25 mcg DAILY@0630 ORAL 07/20/16 06:30 08/19/16 06:29 07/20/16 05:53 Morphine Sulfate (Morphine Sulfate) 2 mg Q4H PRN IVP severe Pain (Pain Scale 7-10) 07/18/16 23:00 07/25/16 22:59 Nitroglycerin (Ntg) 0.4 mg Q5M X 3 DOSES PRN SL Prn Chest Pain 07/18/16 23:00 08/17/16 22:59 Nystatin (Nystop Powder) 1 applic BID TOPIC 07/19/16 18:00 08/18/16 17:59 07/20/16 09:00 Ondansetron HCl (Zofran) 4 mg Q6H PRN IVP Nausea & Vomiting 07/18/16 23:00 08/17/16 22:59 Pantoprazole (Protonix) 40 mg DAILY ORAL 07/19/16 09:00 08/18/16 08:59 Future hold Pentoxifylline (TRENtal) 400 mg THREE TIMES A DAY ORAL 07/19/16 10:00 08/18/16 09:59 07/20/16 12:34 Polyethylene Glycol (Miralax) 17 gm HSPRN PRN ORAL Constipation 07/18/16 23:00 08/17/16 22:59 Sitagliptin Phosphate (Januvia) 50 mg ACBREAKFAST ORAL 07/20/16 06:30 08/19/16 06:29 07/20/16 05:53 Temazepam (Restoril) 15 mg HSPRN PRN ORAL Insomnia 07/18/16 23:00 07/25/16 22:59 LAYLA ANGUIANO Jul 20, 2016 16:25
--- NOTE | 2016-07-20 19:42 | Cardiology Progress Note ---
Assessment/Plan Assessment/Plan The patient is seen and examined, full consult note will be dictated. Objective Last 24 Hour Vital Signs Date Time Temp Pulse Resp B/P Pulse Ox O2 Delivery O2 Flow Rate FiO2 07/20/16 17:55 129/65 07/20/16 16:00 98.1 78 19 129/65 95 Room Air 07/20/16 12:34 161/91 07/20/16 11:46 98.4 80 20 161/91 99 Room Air 07/20/16 10:57 85 175/80 07/20/16 10:57 175/80 07/20/16 08:14 98.3 85 21 175/80 97 Room Air 07/20/16 04:00 97.7 85 19 152/78 96 Room Air 07/20/16 00:00 97.9 89 19 147/77 97 Room Air 07/19/16 20:46 78 110/48 07/19/16 20:00 98.2 82 16 100/48 91 Room Air Intake and Output 07/19/16 07/20/16 19:00 07:00 Intake Total 375 ml 675.0 ml Balance 375 ml 675.0 ml IV Total 375 ml 675.0 ml # Voids 4 3 Laboratory Tests Test 07/20/16 06:30 White Blood Count 6.1 K/UL (4.8-10.8) Red Blood Count 3.54 M/UL (4.20-5.40) L Hemoglobin 10.8 G/DL (12.0-16.0) L Hematocrit 33.5 % (37.0-47.0) L Mean Corpuscular Volume 95 FL (80-99) Mean Corpuscular Hemoglobin 30.6 PG (27.0-31.0) Mean Corpuscular Hemoglobin Concent 32.4 G/DL (32.0-36.0) Red Cell Distribution Width 13.6 % (11.6-14.8) Platelet Count 220 K/UL (150-450) Mean Platelet Volume 7.9 FL (6.5-10.1) Neutrophils (%) (Auto) 57.4 % (45.0-75.0) Lymphocytes (%) (Auto) 28.6 % (20.0-45.0) Monocytes (%) (Auto) 9.5 % (1.0-10.0) Eosinophils (%) (Auto) 3.1 % (0.0-3.0) H Basophils (%) (Auto) 1.3 % (0.0-2.0) Reticulocyte Count 1.3 % (0.0-2.0) Prothrombin Time 10.7 SEC (9.30-11.50) Prothromb Time International Ratio 1.1 (0.9-1.1) Activated Partial Thromboplast Time 28 SEC (23-33) Sodium Level 142 mEQ/L (135-145) Potassium Level 3.9 mEQ/L (3.4-4.9) Chloride Level 100 mEQ/L (98-107) Carbon Dioxide Level 29 mEQ/L (20-30) Anion Gap 13 (5-15) Blood Urea Nitrogen 23 mg/dL (7-23) Creatinine 1.4 mg/dL (0.5-0.9) H Estimat Glomerular Filtration Rate 37.8 mL/min (>60) Glucose Level 143 mg/dL (74-106) H Calcium Level 9.3 mg/dL (8.6-10.2) Iron Level 64 ug/dL (37-145) Total Iron Binding Capacity 287 ug/dL (250-400) Percent Iron Saturation 22 % (15-50) Unsaturated Iron Binding 223 ug/dL (112-346) Ferritin 27 ng/mL (13-150) Carcinoembryonic Antigen 2.5 ng/mL Vitamin B12 Level 572 pg/mL (211-946) Folate Pending Thyroid Stimulating Hormone (TSH) 3.380 uIU/mL (0.300-4.500) Free Thyroxine 1.21 ng/dL (0.86-1.85) TRAM BOSE Jul 20, 2016 19:42
[2016-07-20 20:00] VITALS: BP 159/80
[2016-07-20] MEDS: Atorvastatin 20mg tab ORAL SCH (20:58)
[2016-07-21] VITALS: BP 136/54
[2016-07-21 04:00] VITALS: BP 162/83
[2016-07-21] MEDS: Levothyroxine 25mcg tab ORAL SCH (06:21)
[2016-07-21] MEDS: sitaGLIPtin 50mg tab ORAL SCH (06:21)
[2016-07-21 07:13] VITALS: BP 186/89
[2016-07-21 07:23] LABS: EOSINOPHILS % (AUTO) 3.7 % (0.0-3.0); MEAN CORPUSCULAR HEMOGLOBIN 31.5 PG (27.0-31.0); MEAN CORPUSCULAR HGB CONC 32.9 G/DL (32.0-36.0); MEAN CORPUSCULAR VOLUME 96 FL (80-99); MEAN PLATELET VOLUME 7.4 FL (6.5-10.1); MONOCYTES % (AUTO) 8.2 % (1.0-10.0); NEUTROPHILS % (AUTO) 56.1 % (45.0-75.0); PLATELET COUNT 228 K/UL (150-450); RED BLOOD COUNT 3.55 M/UL (4.20-5.40); RED CELL DISTRIBUTION WIDTH 13.1 % (11.6-14.8); WHITE BLOOD COUNT 6.1 K/UL (4.8-10.8)
[2016-07-21 07:30] LABS: CALCIUM 9.3 mg/dL (8.6-10.2); CREATININE 1.4 mg/dL (0.5-0.9); GLOMERULAR FILTRATION RATE 37.8 mL/min (>60)
--- NOTE | 2016-07-21 07:47 | Pulmonology Progress Note ---
Assessment/Plan Assessment/Plan ASSESSMENT anemia DM HTN urgency acute renal failure vs CKD dehydration elevated lipase seizure disorder hypothyroidism PLAN OF CARE MS floor IVF diet as tolerated, monitor tolerance GI follows anemia wup stable, stool OB-pending EGD cancelled abdominal US + dilated CBD, ?downstream obstruction, but stable bili and LFT elevated lipase, ? MRCP - per GI discretion a/emetic prn nephro follows possible diabetic nephropathy with +3 protein in urine renal US monitor renal parameters, francisco, avoid nephrotoxic BS management with current regimen ( Januvia) BP management with BB, add Norvasc seizure precautions, not on any anticonvulsant meds DVT, GI prophylaxis continue Levothyroxine, TSH WNL case discussed and evaluated by supervising physician Subjective Allergies: Coded Allergies: PENICILLINS (Verified Allergy, Unknown, 01/31/11) STREPTOMYCIN (Verified Allergy, Unknown, 07/18/16) Uncoded Allergies: EGGS (Allergy, Unknown, 01/31/11) Subjective blood pressure not controlled denies chest pain, SOB, palpitations Objective Last 24 Hour Vital Signs Date Time Temp Pulse Resp B/P Pulse Ox O2 Delivery O2 Flow Rate FiO2 07/21/16 07:13 97.7 72 14 186/89 98 Room Air 07/21/16 04:00 97.5 76 20 162/83 97 Room Air 07/21/16 00:00 97.7 75 20 136/54 97 Room Air 07/20/16 21:56 159/80 07/20/16 20:58 74 159/80 07/20/16 20:00 97.2 74 16 159/80 95 Room Air 07/20/16 17:55 129/65 07/20/16 16:00 98.1 78 19 129/65 95 Room Air 07/20/16 12:34 161/91 07/20/16 11:46 98.4 80 20 161/91 99 Room Air 07/20/16 10:57 85 175/80 07/20/16 10:57 175/80 07/20/16 08:14 98.3 85 21 175/80 97 Room Air Intake and Output 07/20/16 07/21/16 19:00 07:00 Intake Total 855 ml 720 ml Balance 855 ml 720 ml Intake Oral 480 ml 720 ml IV Total 375 ml # Voids 5 3 # Bowel Movements 1 1 General Appearance: WD/WN, no acute distress HEENT: normocephalic, atraumatic, anicteric, mucous membranes moist Respiratory/Chest: lungs clear, no respiratory distress, no accessory muscle use Cardiovascular: normal peripheral pulses, regular rhythm, no JVD Abdomen: normal bowel sounds, soft, non tender Genitourinary: normal external genitalia Neurologic/Psychiatric: alert, responsive Microbiology Date/Time Source Procedure Growth Status 07/19/16 00:10 Rectum VRE Culture - Final NO VANCOMYCIN RESISTANT ENTEROCOCCUS ... Complete Laboratory Tests 07/20/16 18:30: Urine Eosinophils None seen, Urine Random Creatinine [Pending], Urine Random Microalbumin [Pending], Urine Random Total Protein 49, Urine Random Sodium 98, Urine Creatinine 107.3, Urine Microalbumin/Creatinine Ratio [Pending], Stool Occult Blood [Pending] 07/21/16 04:50: White Blood Count 6.1, Red Blood Count 3.55L, Hemoglobin 11.2L, Hematocrit 34.0L , Mean Corpuscular Volume 96, Mean Corpuscular Hemoglobin 31.5H, Mean Corpuscular Hemoglobin Concent 32.9, Red Cell Distribution Width 13.1, Platelet Count 228, Mean Platelet Volume 7.4, Neutrophils (%) (Auto) 56.1, Lymphocytes (% ) (Auto) 31.0, Monocytes (%) (Auto) 8.2, Eosinophils (%) (Auto) 3.7H, Basophils (%) (Auto) 1.0, Sodium Level 145, Potassium Level 4.0, Chloride Level 103, Carbon Dioxide Level 30, Anion Gap 12, Blood Urea Nitrogen 22, Creatinine 1.4H, Estimat Glomerular Filtration Rate 37.8, Glucose Level 142H, Calcium Level 9.3, Folate [Pending] Current Medications Medications (Trade) Dose Ordered Sig/Salma Route PRN Reason Start Time Stop Time Status Last Admin Dose Admin Acetaminophen (Tylenol) 650 mg Q4H PRN ORAL fever 07/18/16 23:00 08/17/16 22:59 Al Hydroxide/Mg Hydroxide (Mylanta II) 30 ml Q6H PRN ORAL dyspepsia 07/18/16 23:00 08/17/16 22:59 Atorvastatin Calcium (Lipitor) 20 mg BEDTIME ORAL 07/19/16 21:00 08/18/16 20:59 07/20/16 20:58 Carvedilol (Coreg) 12.5 mg EVERY 12 HOURS ORAL 07/19/16 09:00 08/18/16 08:59 07/20/16 20:58 Clonidine HCl (Catapres) 0.1 mg Q4H PRN ORAL SBP >150 07/19/16 08:00 08/18/16 07:59 07/20/16 21:56 Dextrose (Dextrose 50%) STAT PRN IV Hypoglycemia 07/18/16 23:00 08/17/16 22:59 Diphenhydramine HCl (Benadryl) 25 mg Q6H PRN ORAL Itching/Pruritis 07/18/16 23:00 08/17/16 22:59 Docusate Sodium (Colace) 100 mg DAILY ORAL 07/19/16 09:00 08/18/16 08:59 07/19/16 09:29 Heparin Sodium (Porcine) (Heparin 5000 units/ml) 5,000 units EVERY 12 HOURS SUBQ 07/19/16 09:00 08/18/16 08:59 07/20/16 20:58 Ibuprofen (Motrin) 600 mg Q6H PRN ORAL Moderate Pain (Pain Scale 4-6) 07/19/16 08:00 08/18/16 07:59 Lactulose (Cephulac) 20 gm BID ORAL 07/19/16 09:00 08/18/16 08:59 07/20/16 17:54 Levothyroxine Sodium (Synthroid) 25 mcg DAILY@0630 ORAL 07/20/16 06:30 08/19/16 06:29 07/21/16 06:21 Morphine Sulfate (Morphine Sulfate) 2 mg Q4H PRN IVP severe Pain (Pain Scale 7-10) 07/18/16 23:00 07/25/16 22:59 Nitroglycerin (Ntg) 0.4 mg Q5M X 3 DOSES PRN SL Prn Chest Pain 07/18/16 23:00 08/17/16 22:59 Nystatin (Nystop Powder) 1 applic BID TOPIC 07/19/16 18:00 08/18/16 17:59 07/20/16 17:55 Ondansetron HCl (Zofran) 4 mg Q6H PRN IVP Nausea & Vomiting 07/18/16 23:00 08/17/16 22:59 Pantoprazole (Protonix) 40 mg DAILY ORAL 07/19/16 09:00 08/18/16 08:59 Future hold Pentoxifylline (TRENtal) 400 mg THREE TIMES A DAY ORAL 07/19/16 10:00 08/18/16 09:59 07/20/16 17:55 Polyethylene Glycol (Miralax) 17 gm HSPRN PRN ORAL Constipation 07/18/16 23:00 08/17/16 22:59 Sitagliptin Phosphate (Januvia) 50 mg ACBREAKFAST ORAL 07/20/16 06:30 08/19/16 06:29 07/21/16 06:21 Temazepam (Restoril) 15 mg HSPRN PRN ORAL Insomnia 07/18/16 23:00 07/25/16 22:59 Kd ([facility])Holly NP Jul 21, 2016 07:47
[2016-07-21] MEDS: Lactulose 20gm/30ml UDC ORAL SCH ×2 (08:59→18:00)
[2016-07-21] MEDS: Docusate 250mg cap ORAL SCH (08:59)
[2016-07-21] MEDS: Carvedilol 12.5mg tab ORAL SCH ×2 (08:59→21:48)
[2016-07-21] MEDS: Heparin 5000 units/ml inj SUBQ SCH ×2 (09:00→21:49)
[2016-07-21] MEDS: Nystatin Powder 100,000 units/gm 15gm TOPIC SCH ×2 (09:04→18:18)
[2016-07-21 11:08] VITALS: BP 150/75
--- NOTE | 2016-07-21 11:50 | General Progress Note ---
Assessment/Plan Problem List: (1) HTN (hypertension) ICD Codes: I10 - Essential (primary) hypertension SNOMED: 72202187 (2) Seizure disorder ICD Codes: G40.909 - Epilepsy, unspecified, not intractable, without status epilepticus SNOMED: 182634925 (3) Elevated lipase ICD Codes: R74.8 - Abnormal levels of other serum enzymes SNOMED: 387406543 (4) Hypoalbuminemia ICD Codes: E88.09 - Other disorders of plasma-protein metabolism, not elsewhere classified SNOMED: 845819494 (5) Diabetes ICD Codes: E11.9 - Type 2 diabetes mellitus without complications SNOMED: 94686801 (6) Anemia ICD Codes: D64.9 - Anemia, unspecified SNOMED: 696996703 (7) Dilated bile duct ICD Codes: K83.8 - Other specified diseases of biliary tract SNOMED: 613589632 Assessment/Plan esophagogastroduodenoscopy was canceled due to AMS yesterday stable H&H neg stool ob fu labs hold GI procedures for now Subjective ROS Limited/Unobtainable: Yes Allergies: Coded Allergies: PENICILLINS (Verified Allergy, Unknown, 01/31/11) STREPTOMYCIN (Verified Allergy, Unknown, 07/18/16) Uncoded Allergies: EGGS (Allergy, Unknown, 01/31/11) Subjective patient is confused Objective Last 24 Hour Vital Signs Date Time Temp Pulse Resp B/P Pulse Ox O2 Delivery O2 Flow Rate FiO2 07/21/16 11:08 97.5 79 16 150/75 96 Room Air 07/21/16 09:07 72 186/89 07/21/16 08:59 72 186/89 07/21/16 08:59 186/89 07/21/16 07:13 97.7 72 14 186/89 98 Room Air 07/21/16 04:00 97.5 76 20 162/83 97 Room Air 07/21/16 00:00 97.7 75 20 136/54 97 Room Air 07/20/16 21:56 159/80 07/20/16 20:58 74 159/80 07/20/16 20:00 97.2 74 16 159/80 95 Room Air 07/20/16 17:55 129/65 07/20/16 16:00 98.1 78 19 129/65 95 Room Air 07/20/16 12:34 161/91 Intake and Output 07/20/16 07/21/16 19:00 07:00 Intake Total 855 ml 720 ml Balance 855 ml 720 ml Intake Oral 480 ml 720 ml IV Total 375 ml # Voids 5 3 # Bowel Movements 1 1 Laboratory Tests 07/20/16 18:30: Urine Eosinophils None seen, Urine Random Creatinine [Pending], Urine Random Microalbumin [Pending], Urine Random Total Protein 49, Urine Random Sodium 98, Urine Creatinine 107.3, Urine Microalbumin/Creatinine Ratio [Pending], Stool Occult Blood Negative 07/21/16 04:50: White Blood Count 6.1, Red Blood Count 3.55L, Hemoglobin 11.2L, Hematocrit 34.0L , Mean Corpuscular Volume 96, Mean Corpuscular Hemoglobin 31.5H, Mean Corpuscular Hemoglobin Concent 32.9, Red Cell Distribution Width 13.1, Platelet Count 228, Mean Platelet Volume 7.4, Neutrophils (%) (Auto) 56.1, Lymphocytes (% ) (Auto) 31.0, Monocytes (%) (Auto) 8.2, Eosinophils (%) (Auto) 3.7H, Basophils (%) (Auto) 1.0, Sodium Level 145, Potassium Level 4.0, Chloride Level 103, Carbon Dioxide Level 30, Anion Gap 12, Blood Urea Nitrogen 22, Creatinine 1.4H, Estimat Glomerular Filtration Rate 37.8, Glucose Level 142H, Calcium Level 9.3, Folate [Pending] Height (Feet): 5 Height (Inches): 5.00 Weight (Pounds): 200 General Appearance: alert EENT: normal ENT inspection Neck: supple Cardiovascular: normal rate Respiratory/Chest: decreased breath sounds Abdomen: normal bowel sounds, non tender, soft Extremities: non-tender CHRIS PETERSON Jul 21, 2016 11:50
--- NOTE | 2016-07-21 12:55 | General Progress Note ---
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 (3) Anemia ICD Codes: D64.9 - Anemia, unspecified SNOMED: 567974211 (4) Diabetes ICD Codes: E11.9 - Type 2 diabetes mellitus without complications SNOMED: 88464442 (5) Intractable nausea and vomiting ICD Codes: R11.2 - Nausea with vomiting, unspecified SNOMED: 862154397, 675869300 (6) Seizure disorder ICD Codes: G40.909 - Epilepsy, unspecified, not intractable, without status epilepticus SNOMED: 321139531 (7) HTN (hypertension) ICD Codes: I10 - Essential (primary) hypertension SNOMED: 85866646 Status: stable, progressing, tolerating diet Assessment/Plan ot pt diet antiemetic gi f/u dc if gi clears Subjective Constitutional: Reports: weakness Allergies: Coded Allergies: PENICILLINS (Verified Allergy, Unknown, 01/31/11) STREPTOMYCIN (Verified Allergy, Unknown, 07/18/16) Uncoded Allergies: EGGS (Allergy, Unknown, 01/31/11) All Systems: reviewed and negative except above Subjective sleepy calm Objective Last 24 Hour Vital Signs Date Time Temp Pulse Resp B/P Pulse Ox O2 Delivery O2 Flow Rate FiO2 07/21/16 12:30 150/75 07/21/16 11:08 97.5 79 16 150/75 96 Room Air 07/21/16 09:07 72 186/89 07/21/16 08:59 72 186/89 07/21/16 08:59 186/89 07/21/16 07:13 97.7 72 14 186/89 98 Room Air 07/21/16 04:00 97.5 76 20 162/83 97 Room Air 07/21/16 00:00 97.7 75 20 136/54 97 Room Air 07/20/16 21:56 159/80 07/20/16 20:58 74 159/80 07/20/16 20:00 97.2 74 16 159/80 95 Room Air 07/20/16 17:55 129/65 07/20/16 16:00 98.1 78 19 129/65 95 Room Air Intake and Output 07/20/16 07/21/16 19:00 07:00 Intake Total 855 ml 720 ml Balance 855 ml 720 ml Intake Oral 480 ml 720 ml IV Total 375 ml # Voids 5 3 # Bowel Movements 1 1 Laboratory Tests 07/20/16 18:30: Urine Eosinophils None seen, Urine Random Creatinine [Pending], Urine Random Microalbumin [Pending], Urine Random Total Protein 49, Urine Random Sodium 98, Urine Creatinine 107.3, Urine Microalbumin/Creatinine Ratio [Pending], Stool Occult Blood Negative 07/21/16 04:50: White Blood Count 6.1, Red Blood Count 3.55L, Hemoglobin 11.2L, Hematocrit 34.0L , Mean Corpuscular Volume 96, Mean Corpuscular Hemoglobin 31.5H, Mean Corpuscular Hemoglobin Concent 32.9, Red Cell Distribution Width 13.1, Platelet Count 228, Mean Platelet Volume 7.4, Neutrophils (%) (Auto) 56.1, Lymphocytes (% ) (Auto) 31.0, Monocytes (%) (Auto) 8.2, Eosinophils (%) (Auto) 3.7H, Basophils (%) (Auto) 1.0, Sodium Level 145, Potassium Level 4.0, Chloride Level 103, Carbon Dioxide Level 30, Anion Gap 12, Blood Urea Nitrogen 22, Creatinine 1.4H, Estimat Glomerular Filtration Rate 37.8, Glucose Level 142H, Calcium Level 9.3, Folate [Pending] Height (Feet): 5 Height (Inches): 5.00 Weight (Pounds): 200 General Appearance: lethargic, confused EENT: normal ENT inspection Neck: normal alignment Cardiovascular: normal peripheral pulses, normal rate, regular rhythm Respiratory/Chest: chest wall non-tender, lungs clear, normal breath sounds Abdomen: normal bowel sounds, non tender, soft Extremities: normal inspection Edema: no edema noted Arm (L), no edema noted Arm (R), no edema noted Leg (L), no edema noted Leg (R), no edema noted Pedal (L), no edema noted Pedal (R), no edema noted Generalized Neurologic: motor weakness Skin: normal pigmentation, warm/dry DELMIS TENORIO Jul 21, 2016 12:55
--- NOTE | 2016-07-21 12:58 | Nephrology Progress Note ---
Assessment/Plan Assessment 1. Acute ON chronic kidney disease. 2. Possible diabetic nephropathy with 3+ proteinuria. 3. Intractable nausea and vomiting. 4. Uncontrolled hypertension. 5. Diabetes. 6. Hypothyroidism. Plan Plan to continue current iv monitoring renal function monitoring electrolyte increase norvasc 10 d/c young Subjective Constitutional: Reports: no symptoms HEENT: Reports: no symptoms Genitourinary: Reports: no symptoms Neurologic/Psychiatric: Reports: no symptoms Subjective alert and awake had EGD Objective Objective Last 24 Hour Vital Signs Date Time Temp Pulse Resp B/P Pulse Ox O2 Delivery O2 Flow Rate FiO2 07/21/16 12:30 150/75 07/21/16 11:08 97.5 79 16 150/75 96 Room Air 07/21/16 09:07 72 186/89 07/21/16 08:59 72 186/89 07/21/16 08:59 186/89 07/21/16 07:13 97.7 72 14 186/89 98 Room Air 07/21/16 04:00 97.5 76 20 162/83 97 Room Air 07/21/16 00:00 97.7 75 20 136/54 97 Room Air 07/20/16 21:56 159/80 07/20/16 20:58 74 159/80 07/20/16 20:00 97.2 74 16 159/80 95 Room Air 07/20/16 17:55 129/65 07/20/16 16:00 98.1 78 19 129/65 95 Room Air Intake and Output 07/20/16 07/21/16 19:00 07:00 Intake Total 855 ml 720 ml Balance 855 ml 720 ml Intake Oral 480 ml 720 ml IV Total 375 ml # Voids 5 3 # Bowel Movements 1 1 Laboratory Tests 07/20/16 18:30: Urine Eosinophils None seen, Urine Random Creatinine [Pending], Urine Random Microalbumin [Pending], Urine Random Total Protein 49, Urine Random Sodium 98, Urine Creatinine 107.3, Urine Microalbumin/Creatinine Ratio [Pending], Stool Occult Blood Negative 07/21/16 04:50: White Blood Count 6.1, Red Blood Count 3.55L, Hemoglobin 11.2L, Hematocrit 34.0L , Mean Corpuscular Volume 96, Mean Corpuscular Hemoglobin 31.5H, Mean Corpuscular Hemoglobin Concent 32.9, Red Cell Distribution Width 13.1, Platelet Count 228, Mean Platelet Volume 7.4, Neutrophils (%) (Auto) 56.1, Lymphocytes (% ) (Auto) 31.0, Monocytes (%) (Auto) 8.2, Eosinophils (%) (Auto) 3.7H, Basophils (%) (Auto) 1.0, Sodium Level 145, Potassium Level 4.0, Chloride Level 103, Carbon Dioxide Level 30, Anion Gap 12, Blood Urea Nitrogen 22, Creatinine 1.4H, Estimat Glomerular Filtration Rate 37.8, Glucose Level 142H, Calcium Level 9.3, Folate [Pending] Height (Feet): 5 Height (Inches): 5.00 Weight (Pounds): 200 Objective HEAD AND NECK: No JVP. No LAD. No thyromegaly. Extraocular movement intact. Pupils are reactive to light and accommodation. LUNGS: Clear to auscultation. CARDIAC: Regular rate and rhythm. S1 and S2. No murmur. No rub. ABDOMEN: Soft, nontender, and nondistended. EXTREMITIES: Trace edema. No clubbing. No cyanosis. OMAR JAUREGUI Jul 21, 2016 12:58
[2016-07-21 13:15] LABS: CREATININE RANDOM URINE 92.3 mg/dL (Not Estab.)
--- NOTE | 2016-07-21 14:25 | Diagnostic Imaging Report ---
Indication: Acute renal failure Technique: Grayscale and duplex images of the kidneys, retroperitoneum, and bladder were obtained. Comparison:Abdominal ultrasound of 2 days earlier Findings: Right kidney measures 9.4 cm in length. Left kidney measures 10.1 cm in length. Both kidneys demonstrate normal echogenicity. No hydronephrosis. Kidney demonstrates a prominent column of Nik, also evident on prior 2011 exam as well as prior [address] CT. No other focal abnormality. Normal inferior vena cava. Bladder is normal. Impression: negative.
[2016-07-21 16:00] VITALS: BP 159/80
[2016-07-21 20:00] VITALS: BP 129/63
[2016-07-21] MEDS: Atorvastatin 20mg tab ORAL SCH (21:48)
[2016-07-22] VITALS: BP 141/69
[2016-07-22 04:00] VITALS: BP 154/73
[2016-07-22] MEDS: sitaGLIPtin 50mg tab ORAL SCH (05:40)
[2016-07-22] MEDS: Levothyroxine 25mcg tab ORAL SCH (05:40)
--- NOTE | 2016-07-22 06:50 | General Progress Note ---
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 (3) Anemia ICD Codes: D64.9 - Anemia, unspecified SNOMED: 051841980 (4) Diabetes ICD Codes: E11.9 - Type 2 diabetes mellitus without complications SNOMED: 99043722 (5) Intractable nausea and vomiting ICD Codes: R11.2 - Nausea with vomiting, unspecified SNOMED: 418298642, 599782959 (6) Seizure disorder ICD Codes: G40.909 - Epilepsy, unspecified, not intractable, without status epilepticus SNOMED: 169657909 (7) HTN (hypertension) ICD Codes: I10 - Essential (primary) hypertension SNOMED: 93574999 Status: stable, progressing, tolerating diet Assessment/Plan ot pt diet antiemetic gi f/u cbc bmp am dc if gi clears Subjective Constitutional: Reports: weakness Allergies: Coded Allergies: PENICILLINS (Verified Allergy, Unknown, 01/31/11) STREPTOMYCIN (Verified Allergy, Unknown, 07/18/16) Uncoded Allergies: EGGS (Allergy, Unknown, 01/31/11) All Systems: reviewed and negative except above Subjective sleepy calm Objective Last 24 Hour Vital Signs Date Time Temp Pulse Resp B/P Pulse Ox O2 Delivery O2 Flow Rate FiO2 07/22/16 04:00 97.9 79 20 154/73 95 Room Air 07/22/16 00:00 97.5 73 20 141/69 98 Room Air 07/21/16 21:48 68 129/63 07/21/16 20:00 97.3 68 17 129/63 97 Room Air 07/21/16 18:18 159/80 07/21/16 16:00 97.5 71 18 159/80 98 Room Air 07/21/16 12:30 150/75 07/21/16 11:08 97.5 79 16 150/75 96 Room Air 07/21/16 09:07 72 186/89 07/21/16 08:59 72 186/89 07/21/16 08:59 186/89 07/21/16 07:13 97.7 72 14 186/89 98 Room Air Intake and Output 07/21/16 07/22/16 19:00 07:00 Intake Total 1000 ml 300 ml Output Total 200 ml Balance 800 ml 300 ml Intake Oral 1000 ml 300 ml Output Urine Total 200 ml # Voids 2 # Bowel Movements 1 Height (Feet): 5 Height (Inches): 5.00 Weight (Pounds): 200 General Appearance: lethargic EENT: normal ENT inspection Neck: normal alignment Cardiovascular: normal peripheral pulses, normal rate, regular rhythm Respiratory/Chest: chest wall non-tender, lungs clear, normal breath sounds Abdomen: normal bowel sounds, non tender, soft Extremities: normal inspection Edema: no edema noted Arm (L), no edema noted Arm (R), no edema noted Leg (L), no edema noted Leg (R), no edema noted Pedal (L), no edema noted Pedal (R), no edema noted Generalized Neurologic: motor weakness Skin: normal pigmentation, warm/dry DELMIS TENORIO Jul 22, 2016 06:50
[2016-07-22 07:36] VITALS: BP 158/86
--- NOTE | 2016-07-22 07:56 | General Progress Note ---
Assessment/Plan Problem List: (1) HTN (hypertension) ICD Codes: I10 - Essential (primary) hypertension SNOMED: 03589867 (2) Seizure disorder ICD Codes: G40.909 - Epilepsy, unspecified, not intractable, without status epilepticus SNOMED: 672882583 (3) Elevated lipase ICD Codes: R74.8 - Abnormal levels of other serum enzymes SNOMED: 095641498 (4) Hypoalbuminemia ICD Codes: E88.09 - Other disorders of plasma-protein metabolism, not elsewhere classified SNOMED: 146003945 (5) Diabetes ICD Codes: E11.9 - Type 2 diabetes mellitus without complications SNOMED: 68587062 (6) Anemia ICD Codes: D64.9 - Anemia, unspecified SNOMED: 910066812 (7) Dilated bile duct ICD Codes: K83.8 - Other specified diseases of biliary tract SNOMED: 357824846 Assessment/Plan esophagogastroduodenoscopy was canceled due to AMS last week stable H&H neg stool ob fu labs hold GI procedures for now Subjective ROS Limited/Unobtainable: Yes Allergies: Coded Allergies: PENICILLINS (Verified Allergy, Unknown, 01/31/11) STREPTOMYCIN (Verified Allergy, Unknown, 07/18/16) Uncoded Allergies: EGGS (Allergy, Unknown, 01/31/11) Subjective no event Objective Last 24 Hour Vital Signs Date Time Temp Pulse Resp B/P Pulse Ox O2 Delivery O2 Flow Rate FiO2 07/22/16 07:36 97.7 78 15 158/86 97 Room Air 07/22/16 04:00 97.9 79 20 154/73 95 Room Air 07/22/16 00:00 97.5 73 20 141/69 98 Room Air 07/21/16 21:48 68 129/63 07/21/16 20:00 97.3 68 17 129/63 97 Room Air 07/21/16 18:18 159/80 07/21/16 16:00 97.5 71 18 159/80 98 Room Air 07/21/16 12:30 150/75 07/21/16 11:08 97.5 79 16 150/75 96 Room Air 07/21/16 09:07 72 186/89 07/21/16 08:59 72 186/89 07/21/16 08:59 186/89 Intake and Output 07/21/16 07/22/16 19:00 07:00 Intake Total 1000 ml 300 ml Output Total 200 ml Balance 800 ml 300 ml Intake Oral 1000 ml 300 ml Output Urine Total 200 ml # Voids 2 # Bowel Movements 1 Height (Feet): 5 Height (Inches): 5.00 Weight (Pounds): 200 General Appearance: alert EENT: normal ENT inspection Neck: supple Cardiovascular: normal rate Respiratory/Chest: lungs clear Abdomen: normal bowel sounds, non tender, soft Extremities: non-tender CHRIS PETERSON Jul 22, 2016 07:56
[2016-07-22] MEDS: Lactulose 20gm/30ml UDC ORAL SCH ×2 (09:00→18:18)
[2016-07-22] MEDS: Docusate 250mg cap ORAL SCH (09:00)
[2016-07-22] MEDS: Nystatin Powder 100,000 units/gm 15gm TOPIC SCH ×2 (09:00→18:18)
[2016-07-22] MEDS: Carvedilol 12.5mg tab ORAL SCH ×2 (09:46→21:00)
[2016-07-22] MEDS: Heparin 5000 units/ml inj SUBQ SCH ×2 (09:48→21:00)
[2016-07-22 11:22] VITALS: BP 130/81
--- NOTE | 2016-07-22 13:24 | Pulmonology Progress Note ---
Assessment/Plan Assessment/Plan ASSESSMENT anemia DM HTN urgency acute renal failure vs CKD dehydration elevated lipase seizure disorder hypothyroidism PLAN OF CARE [place] floor IVF diet as tolerated, monitor tolerance GI follows anemia wup stable, stool OB-pending EGD cancelled abdominal US + dilated CBD, ?downstream obstruction, but stable bili and LFT elevated lipase, ? MRCP - per GI discretion GI placed all GI procedures on hold for nwo a/emetic prn nephro follows possible diabetic nephropathy with +3 protein in urine renal US negative monitor renal parameters, lytes, no change avoid nephrotoxic , Motrin dc by renal BS management with current regimen ( Januvia) BP management with BB, added Norvasc and nephro increased dose , better seizure precautions, not on any anticonvulsant meds DVT, GI prophylaxis continue Levothyroxine, TSH WNL case discussed and evaluated by supervising physician Subjective Allergies: Coded Allergies: PENICILLINS (Verified Allergy, Unknown, 01/31/11) STREPTOMYCIN (Verified Allergy, Unknown, 07/18/16) Uncoded Allergies: EGGS (Allergy, Unknown, 01/31/11) Subjective blood pressure better denies chest pain, SOB, palpitations Objective Last 24 Hour Vital Signs Date Time Temp Pulse Resp B/P Pulse Ox O2 Delivery O2 Flow Rate FiO2 07/22/16 11:22 97.7 77 16 130/81 96 Room Air 07/22/16 09:46 78 158/86 07/22/16 09:46 78 158/86 07/22/16 09:46 158/86 07/22/16 07:36 97.7 78 15 158/86 97 Room Air 07/22/16 04:00 97.9 79 20 154/73 95 Room Air 07/22/16 00:00 97.5 73 20 141/69 98 Room Air 07/21/16 21:48 68 129/63 07/21/16 20:00 97.3 68 17 129/63 97 Room Air 07/21/16 18:18 159/80 07/21/16 16:00 97.5 71 18 159/80 98 Room Air Intake and Output 07/21/16 07/22/16 19:00 07:00 Intake Total 1000 ml 300 ml Output Total 200 ml Balance 800 ml 300 ml Intake Oral 1000 ml 300 ml Output Urine Total 200 ml # Voids 2 # Bowel Movements 1 Objective General Appearance: WD/WN, no acute distress HEENT: normocephalic, atraumatic, anicteric, mucous membranes moist Respiratory/Chest: lungs clear, no respiratory distress, no accessory muscle use Cardiovascular: normal peripheral pulses, regular rhythm, no JVD Abdomen: normal bowel sounds, soft, non tender Genitourinary: normal external genitalia Neurologic/Psychiatric: alert, responsive Current Medications Medications (Trade) Dose Ordered Sig/Salma Route PRN Reason Start Time Stop Time Status Last Admin Dose Admin Acetaminophen (Tylenol) 650 mg Q4H PRN ORAL fever 07/18/16 23:00 08/17/16 22:59 Al Hydroxide/Mg Hydroxide (Mylanta II) 30 ml Q6H PRN ORAL dyspepsia 07/18/16 23:00 08/17/16 22:59 Amlodipine Besylate (Norvasc) 10 mg DAILY ORAL 07/22/16 09:00 08/21/16 08:59 07/22/16 09:46 Atorvastatin Calcium (Lipitor) 20 mg BEDTIME ORAL 07/19/16 21:00 08/18/16 20:59 07/21/16 21:48 Carvedilol (Coreg) 12.5 mg EVERY 12 HOURS ORAL 07/19/16 09:00 08/18/16 08:59 07/22/16 09:46 Clonidine HCl (Catapres) 0.1 mg Q4H PRN ORAL SBP >150 07/19/16 08:00 08/18/16 07:59 07/20/16 21:56 Dextrose (Dextrose 50%) STAT PRN IV Hypoglycemia 07/18/16 23:00 08/17/16 22:59 Diphenhydramine HCl (Benadryl) 25 mg Q6H PRN ORAL Itching/Pruritis 07/18/16 23:00 08/17/16 22:59 Docusate Sodium (Colace) 100 mg DAILY ORAL 07/19/16 09:00 08/18/16 08:59 07/21/16 08:59 Heparin Sodium (Porcine) (Heparin 5000 units/ml) 5,000 units EVERY 12 HOURS SUBQ 07/19/16 09:00 08/18/16 08:59 07/22/16 09:48 Lactulose (Cephulac) 20 gm BID ORAL 07/19/16 09:00 08/18/16 08:59 07/21/16 08:59 Levothyroxine Sodium (Synthroid) 25 mcg DAILY@0630 ORAL 07/20/16 06:30 08/19/16 06:29 07/22/16 05:40 Morphine Sulfate (Morphine Sulfate) 2 mg Q4H PRN IVP severe Pain (Pain Scale 7-10) 07/18/16 23:00 07/25/16 22:59 Nitroglycerin (Ntg) 0.4 mg Q5M X 3 DOSES PRN SL Prn Chest Pain 07/18/16 23:00 08/17/16 22:59 Nystatin (Nystop Powder) 1 applic BID TOPIC 07/19/16 18:00 08/18/16 17:59 07/21/16 18:18 Ondansetron HCl (Zofran) 4 mg Q6H PRN IVP Nausea & Vomiting 07/18/16 23:00 08/17/16 22:59 Pantoprazole (Protonix) 40 mg DAILY ORAL 07/19/16 09:00 08/18/16 08:59 Future hold 07/22/16 09:46 Pentoxifylline (TRENtal) 400 mg THREE TIMES A DAY ORAL 07/19/16 10:00 08/18/16 09:59 07/22/16 09:46 Polyethylene Glycol (Miralax) 17 gm HSPRN PRN ORAL Constipation 07/18/16 23:00 08/17/16 22:59 Sitagliptin Phosphate (Januvia) 50 mg ACBREAKFAST ORAL 07/20/16 06:30 08/19/16 06:29 07/22/16 05:40 Temazepam (Restoril) 15 mg HSPRN PRN ORAL Insomnia 07/18/16 23:00 07/25/16 22:59 Holly Yi NP (Vanchtein) Jul 22, 2016 13:24
[2016-07-22 16:09] VITALS: BP 152/78
[2016-07-22 20:00] VITALS: BP 124/68
[2016-07-22] MEDS: Atorvastatin 20mg tab ORAL SCH (21:00)
[2016-07-23] VITALS: BP 153/76
[2016-07-23 04:00] VITALS: BP 154/90
[2016-07-23] MEDS: sitaGLIPtin 50mg tab ORAL SCH ×2 (05:48→05:51)
[2016-07-23] MEDS: Levothyroxine 25mcg tab ORAL SCH ×2 (05:48→05:51)
--- NOTE | 2016-07-23 06:55 | General Progress Note ---
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 (3) Anemia ICD Codes: D64.9 - Anemia, unspecified SNOMED: 949438411 (4) Diabetes ICD Codes: E11.9 - Type 2 diabetes mellitus without complications SNOMED: 22056773 (5) Intractable nausea and vomiting ICD Codes: R11.2 - Nausea with vomiting, unspecified SNOMED: 434614328, 371231928 (6) Seizure disorder ICD Codes: G40.909 - Epilepsy, unspecified, not intractable, without status epilepticus SNOMED: 864945387 (7) HTN (hypertension) ICD Codes: I10 - Essential (primary) hypertension SNOMED: 31535759 Status: stable, progressing, tolerating diet Assessment/Plan ot pt diet antiemetic gi f/u cbc bmp am dc if gi clears Subjective Constitutional: Reports: weakness Allergies: Coded Allergies: PENICILLINS (Verified Allergy, Unknown, 01/31/11) STREPTOMYCIN (Verified Allergy, Unknown, 07/18/16) Uncoded Allergies: EGGS (Allergy, Unknown, 01/31/11) All Systems: reviewed and negative except above Subjective sleepy calm Objective Last 24 Hour Vital Signs Date Time Temp Pulse Resp B/P Pulse Ox O2 Delivery O2 Flow Rate FiO2 07/23/16 04:00 98.1 86 18 154/90 98 Room Air 07/23/16 00:00 97.7 89 18 153/76 97 Room Air 07/22/16 20:00 97.2 81 20 124/68 96 Room Air 07/22/16 18:18 152/78 07/22/16 16:09 97.3 84 15 152/78 98 Room Air 07/22/16 13:22 130/81 07/22/16 11:22 97.7 77 16 130/81 96 Room Air 07/22/16 09:46 78 158/86 07/22/16 09:46 78 158/86 07/22/16 09:46 158/86 07/22/16 07:36 97.7 78 15 158/86 97 Room Air Intake and Output 07/22/16 07/23/16 19:00 07:00 Intake Total 1350 ml Output Total 500 ml Balance 850 ml Intake Oral 1350 ml Output Urine Total 500 ml # Voids 1 2 Height (Feet): 5 Height (Inches): 5.00 Weight (Pounds): 200 General Appearance: lethargic EENT: normal ENT inspection Neck: normal alignment Cardiovascular: normal peripheral pulses, normal rate, regular rhythm Respiratory/Chest: chest wall non-tender, lungs clear, normal breath sounds Abdomen: normal bowel sounds, non tender, soft Extremities: normal inspection Edema: no edema noted Arm (L), no edema noted Arm (R), no edema noted Leg (L), no edema noted Leg (R), no edema noted Pedal (L), no edema noted Pedal (R), no edema noted Generalized Neurologic: responsive, motor weakness Skin: normal pigmentation, warm/dry DELMIS TENORIO Jul 23, 2016 06:55
--- NOTE | 2016-07-23 07:56 | General Progress Note ---
Assessment/Plan Problem List: (1) HTN (hypertension) ICD Codes: I10 - Essential (primary) hypertension SNOMED: 81743698 (2) Seizure disorder ICD Codes: G40.909 - Epilepsy, unspecified, not intractable, without status epilepticus SNOMED: 312694277 (3) Elevated lipase ICD Codes: R74.8 - Abnormal levels of other serum enzymes SNOMED: 018264912 (4) Hypoalbuminemia ICD Codes: E88.09 - Other disorders of plasma-protein metabolism, not elsewhere classified SNOMED: 277517191 (5) Diabetes ICD Codes: E11.9 - Type 2 diabetes mellitus without complications SNOMED: 74919645 (6) Anemia ICD Codes: D64.9 - Anemia, unspecified SNOMED: 716884880 (7) Dilated bile duct ICD Codes: K83.8 - Other specified diseases of biliary tract SNOMED: 934917018 Assessment/Plan esophagogastroduodenoscopy was canceled due to AMS last week stable H&H neg stool ob fu labs hold GI procedures for now fu LFTS Subjective ROS Limited/Unobtainable: Yes Allergies: Coded Allergies: PENICILLINS (Verified Allergy, Unknown, 01/31/11) STREPTOMYCIN (Verified Allergy, Unknown, 07/18/16) Uncoded Allergies: EGGS (Allergy, Unknown, 01/31/11) Subjective no event Objective Last 24 Hour Vital Signs Date Time Temp Pulse Resp B/P Pulse Ox O2 Delivery O2 Flow Rate FiO2 07/23/16 04:00 98.1 86 18 154/90 98 Room Air 07/23/16 00:00 97.7 89 18 153/76 97 Room Air 07/22/16 20:00 97.2 81 20 124/68 96 Room Air 07/22/16 18:18 152/78 07/22/16 16:09 97.3 84 15 152/78 98 Room Air 07/22/16 13:22 130/81 07/22/16 11:22 97.7 77 16 130/81 96 Room Air 07/22/16 09:46 78 158/86 07/22/16 09:46 78 158/86 07/22/16 09:46 158/86 Intake and Output 07/22/16 07/23/16 19:00 07:00 Intake Total 1350 ml Output Total 500 ml Balance 850 ml Intake Oral 1350 ml Output Urine Total 500 ml # Voids 1 2 Height (Feet): 5 Height (Inches): 5.00 Weight (Pounds): 200 General Appearance: no apparent distress EENT: normal ENT inspection Neck: supple Cardiovascular: normal rate Respiratory/Chest: lungs clear Abdomen: non tender, soft, hypoactive bowel sounds Extremities: non-tender CHRIS PETERSON Jul 23, 2016 07:56
[2016-07-23 08:02] VITALS: BP 155/96
[2016-07-23] MEDS: Lactulose 20gm/30ml UDC ORAL SCH ×2 (09:32→17:29)
[2016-07-23] MEDS: Docusate 250mg cap ORAL SCH (09:32)
[2016-07-23] MEDS: Carvedilol 12.5mg tab ORAL SCH ×2 (09:32→20:49)
[2016-07-23] MEDS: Nystatin Powder 100,000 units/gm 15gm TOPIC SCH ×2 (09:33→17:30)
[2016-07-23] MEDS: Heparin 5000 units/ml inj SUBQ SCH ×2 (09:35→20:51)
[2016-07-23 11:50] VITALS: BP 140/73
--- NOTE | 2016-07-23 13:04 | Pulmonology Progress Note ---
Assessment/Plan Assessment/Plan ASSESSMENT anemia DM HTN urgency acute renal failure vs CKD dehydration elevated lipase seizure disorder hypothyroidism PLAN OF CARE [facility] floor IVF diet as tolerated, monitor tolerance GI follows anemia wup stable, stool OB-pending EGD cancelled abdominal US + dilated CBD, ?downstream obstruction, but stable bili and LFT elevated lipase, ? MRCP - per GI discretion GI placed all GI procedures on hold for now a/emetic prn nephro follows possible diabetic nephropathy with +3 protein in urine renal US negative monitor renal parameters, lytes, no change avoid nephrotoxic , Motrin dc by renal BS management with current regimen ( Januvia) BP management with BB, added Norvasc and nephro increased dose , better seizure precautions, not on any anticonvulsant meds DVT, GI prophylaxis continue Levothyroxine, TSH WNL dc plan as per PMD case discussed and evaluated by supervising physician Subjective Allergies: Coded Allergies: PENICILLINS (Verified Allergy, Unknown, 01/31/11) STREPTOMYCIN (Verified Allergy, Unknown, 07/18/16) Uncoded Allergies: EGGS (Allergy, Unknown, 01/31/11) Subjective blood pressure better denies chest pain, SOB, palpitations Objective Last 24 Hour Vital Signs Date Time Temp Pulse Resp B/P Pulse Ox O2 Delivery O2 Flow Rate FiO2 07/23/16 12:21 140/73 07/23/16 11:50 98.1 83 18 140/73 99 Nasal Cannula 07/23/16 09:32 98 155/96 07/23/16 09:32 98 155/96 07/23/16 09:32 155/96 07/23/16 08:02 97.5 98 16 155/96 97 Room Air 07/23/16 04:00 98.1 86 18 154/90 98 Room Air 07/23/16 00:00 97.7 89 18 153/76 97 Room Air 07/22/16 20:00 97.2 81 20 124/68 96 Room Air 07/22/16 18:18 152/78 07/22/16 16:09 97.3 84 15 152/78 98 Room Air 07/22/16 13:22 130/81 Intake and Output 07/22/16 07/23/16 19:00 07:00 Intake Total 1350 ml Output Total 500 ml Balance 850 ml Intake Oral 1350 ml Output Urine Total 500 ml # Voids 1 2 Objective General Appearance: WD/WN, no acute distress HEENT: normocephalic, atraumatic, anicteric, mucous membranes moist Respiratory/Chest: lungs clear, no respiratory distress, no accessory muscle use Cardiovascular: normal peripheral pulses, regular rhythm, no JVD Abdomen: normal bowel sounds, soft, non tender Genitourinary: normal external genitalia Neurologic/Psychiatric: alert, responsive Current Medications Medications (Trade) Dose Ordered Sig/Salma Route PRN Reason Start Time Stop Time Status Last Admin Dose Admin Acetaminophen (Tylenol) 650 mg Q4H PRN ORAL fever 07/18/16 23:00 08/17/16 22:59 Al Hydroxide/Mg Hydroxide (Mylanta II) 30 ml Q6H PRN ORAL dyspepsia 07/18/16 23:00 08/17/16 22:59 Amlodipine Besylate (Norvasc) 10 mg DAILY ORAL 07/22/16 09:00 08/21/16 08:59 07/23/16 09:32 Atorvastatin Calcium (Lipitor) 20 mg BEDTIME ORAL 07/19/16 21:00 08/18/16 20:59 07/21/16 21:48 Carvedilol (Coreg) 12.5 mg EVERY 12 HOURS ORAL 07/19/16 09:00 08/18/16 08:59 07/23/16 09:32 Clonidine HCl (Catapres) 0.1 mg Q4H PRN ORAL SBP >150 07/19/16 08:00 08/18/16 07:59 07/20/16 21:56 Dextrose (Dextrose 50%) STAT PRN IV Hypoglycemia 07/18/16 23:00 08/17/16 22:59 Diphenhydramine HCl (Benadryl) 25 mg Q6H PRN ORAL Itching/Pruritis 07/18/16 23:00 08/17/16 22:59 Docusate Sodium (Colace) 100 mg DAILY ORAL 07/19/16 09:00 08/18/16 08:59 07/23/16 09:32 Heparin Sodium (Porcine) (Heparin 5000 units/ml) 5,000 units EVERY 12 HOURS SUBQ 07/19/16 09:00 08/18/16 08:59 07/23/16 09:35 Lactulose (Cephulac) 20 gm BID ORAL 07/19/16 09:00 08/18/16 08:59 07/23/16 09:32 Levothyroxine Sodium (Synthroid) 25 mcg DAILY@0630 ORAL 07/20/16 06:30 08/19/16 06:29 07/22/16 05:40 Morphine Sulfate (Morphine Sulfate) 2 mg Q4H PRN IVP severe Pain (Pain Scale 7-10) 07/18/16 23:00 07/25/16 22:59 Nitroglycerin (Ntg) 0.4 mg Q5M X 3 DOSES PRN SL Prn Chest Pain 07/18/16 23:00 08/17/16 22:59 Nystatin (Nystop Powder) 1 applic BID TOPIC 07/19/16 18:00 08/18/16 17:59 07/23/16 09:33 Ondansetron HCl (Zofran) 4 mg Q6H PRN IVP Nausea & Vomiting 07/18/16 23:00 08/17/16 22:59 Pantoprazole (Protonix) 40 mg DAILY ORAL 07/19/16 09:00 08/18/16 08:59 Future hold 07/23/16 09:32 Pentoxifylline (TRENtal) 400 mg THREE TIMES A DAY ORAL 07/19/16 10:00 08/18/16 09:59 07/23/16 12:21 Polyethylene Glycol (Miralax) 17 gm HSPRN PRN ORAL Constipation 07/18/16 23:00 08/17/16 22:59 Sitagliptin Phosphate (Januvia) 50 mg ACBREAKFAST ORAL 07/20/16 06:30 08/19/16 06:29 07/22/16 05:40 Temazepam (Restoril) 15 mg HSPRN PRN ORAL Insomnia 07/18/16 23:00 07/25/16 22:59 Kd (Merary)Holly NP Jul 23, 2016 13:04
[2016-07-23 16:28] VITALS: BP 149/94
[2016-07-23 20:00] VITALS: BP 150/75
[2016-07-23] MEDS: Atorvastatin 20mg tab ORAL SCH (20:49)
[2016-07-24] VITALS: BP 124/69
[2016-07-24 04:00] VITALS: BP 140/79
[2016-07-24] MEDS: sitaGLIPtin 50mg tab ORAL SCH (05:51)
[2016-07-24] MEDS: Levothyroxine 25mcg tab ORAL SCH (05:52)
[2016-07-24 08:09] VITALS: BP 167/71
--- NOTE | 2016-07-24 08:47 | General Progress Note ---
Assessment/Plan Problem List: (1) HTN (hypertension) ICD Codes: I10 - Essential (primary) hypertension SNOMED: 80852728 (2) Seizure disorder ICD Codes: G40.909 - Epilepsy, unspecified, not intractable, without status epilepticus SNOMED: 044766332 (3) Elevated lipase ICD Codes: R74.8 - Abnormal levels of other serum enzymes SNOMED: 916797130 (4) Hypoalbuminemia ICD Codes: E88.09 - Other disorders of plasma-protein metabolism, not elsewhere classified SNOMED: 136195486 (5) Diabetes ICD Codes: E11.9 - Type 2 diabetes mellitus without complications SNOMED: 00730701 (6) Anemia ICD Codes: D64.9 - Anemia, unspecified SNOMED: 798769655 (7) Dilated bile duct ICD Codes: K83.8 - Other specified diseases of biliary tract SNOMED: 322049386 Assessment/Plan esophagogastroduodenoscopy was canceled due to AMS last week stable H&H neg stool ob fu labs hold GI procedures for now fu LFTS fu MRCP Subjective ROS Limited/Unobtainable: Yes Allergies: Coded Allergies: PENICILLINS (Verified Allergy, Unknown, 01/31/11) STREPTOMYCIN (Verified Allergy, Unknown, 07/18/16) Uncoded Allergies: EGGS (Allergy, Unknown, 01/31/11) Subjective no event Objective Last 24 Hour Vital Signs Date Time Temp Pulse Resp B/P Pulse Ox O2 Delivery O2 Flow Rate FiO2 07/24/16 08:09 97.2 95 19 167/71 97 Room Air 07/24/16 04:00 97.5 92 20 140/79 95 Room Air 07/24/16 00:00 97.3 77 18 124/69 97 Room Air 07/23/16 20:49 84 150/75 07/23/16 20:00 98.1 84 19 150/75 96 Room Air 07/23/16 17:30 149/94 07/23/16 16:28 97.5 85 16 149/94 100 Room Air 07/23/16 12:21 140/73 07/23/16 11:50 98.1 83 18 140/73 99 Nasal Cannula 07/23/16 09:32 98 155/96 07/23/16 09:32 98 155/96 07/23/16 09:32 155/96 Intake and Output 07/23/16 07/24/16 19:00 07:00 Intake Total 1400 ml 120 ml Output Total 600 ml Balance 800 ml 120 ml Intake Oral 1400 ml 120 ml Output Urine Total 600 ml # Voids 2 # Bowel Movements 1 Height (Feet): 5 Height (Inches): 5.00 Weight (Pounds): 200 General Appearance: no apparent distress EENT: normal ENT inspection Neck: supple Cardiovascular: normal rate Respiratory/Chest: decreased breath sounds Abdomen: normal bowel sounds, non tender, soft Extremities: non-tender CHRIS PETERSON Jul 24, 2016 08:47
--- NOTE | 2016-07-24 10:15 | Nephrology Progress Note ---
Assessment/Plan Assessment 1. Acute ON chronic kidney disease. 2. Possible diabetic nephropathy with 3+ proteinuria. 3. Intractable nausea and vomiting. resolved 4. Uncontrolled hypertension. now is improving 5. Diabetes. 6. Hypothyroidism. Plan Plan to continue current iv monitoring renal function monitoring electrolyte increase norvasc 10 check lab for today Subjective Constitutional: Reports: no symptoms HEENT: Reports: no symptoms Genitourinary: Reports: no symptoms Neurologic/Psychiatric: Reports: no symptoms Subjective alert and awake no complaints Objective Objective Last 24 Hour Vital Signs Date Time Temp Pulse Resp B/P Pulse Ox O2 Delivery O2 Flow Rate FiO2 07/24/16 08:09 97.2 95 19 167/71 97 Room Air 07/24/16 04:00 97.5 92 20 140/79 95 Room Air 07/24/16 00:00 97.3 77 18 124/69 97 Room Air 07/23/16 20:49 84 150/75 07/23/16 20:00 98.1 84 19 150/75 96 Room Air 07/23/16 17:30 149/94 07/23/16 16:28 97.5 85 16 149/94 100 Room Air 07/23/16 12:21 140/73 07/23/16 11:50 98.1 83 18 140/73 99 Nasal Cannula Intake and Output 07/23/16 07/24/16 19:00 07:00 Intake Total 1400 ml 120 ml Output Total 600 ml Balance 800 ml 120 ml Intake Oral 1400 ml 120 ml Output Urine Total 600 ml # Voids 2 # Bowel Movements 1 Height (Feet): 5 Height (Inches): 5.00 Weight (Pounds): 200 Objective HEAD AND NECK: No JVP. No LAD. No thyromegaly. Extraocular movement intact. Pupils are reactive to light and accommodation. LUNGS: Clear to auscultation. CARDIAC: Regular rate and rhythm. S1 and S2. No murmur. No rub. ABDOMEN: Soft, nontender, and nondistended. EXTREMITIES: Trace edema. No clubbing. No cyanosis. OMAR JAUREGUI Jul 24, 2016 10:15
[2016-07-24] MEDS: Docusate 250mg cap ORAL SCH ×2 (10:46→10:56)
[2016-07-24] MEDS: Carvedilol 12.5mg tab ORAL SCH (10:46)
[2016-07-24] MEDS: Lactulose 20gm/30ml UDC ORAL SCH ×2 (10:47→17:43)
[2016-07-24] MEDS: Nystatin Powder 100,000 units/gm 15gm TOPIC SCH ×2 (10:47→17:43)
[2016-07-24] MEDS: Heparin 5000 units/ml inj SUBQ SCH ×2 (10:51→20:21)
[2016-07-24 11:03] LABS: BASOPHILS % (AUTO) 0.8 % (0.0-2.0); EOSINOPHILS % (AUTO) 2.7 % (0.0-3.0); LYMPHOCYTES % (AUTO) 25.6 % (20.0-45.0); MEAN CORPUSCULAR HEMOGLOBIN 30.5 PG (27.0-31.0); MEAN CORPUSCULAR HGB CONC 32.3 G/DL (32.0-36.0); MEAN CORPUSCULAR VOLUME 95 FL (80-99); MEAN PLATELET VOLUME 7.2 FL (6.5-10.1); MONOCYTES % (AUTO) 6.9 % (1.0-10.0); NEUTROPHILS % (AUTO) 63.9 % (45.0-75.0); PLATELET COUNT 290 K/UL (150-450); RED BLOOD COUNT 4.24 M/UL (4.20-5.40); RED CELL DISTRIBUTION WIDTH 13.6 % (11.6-14.8)
[2016-07-24 11:31] LABS: ALBUMIN/GLOBULIN RATIO 0.9 (1.0-2.7); CALCIUM 9.6 mg/dL (8.6-10.2); CREATININE 1.3 mg/dL (0.5-0.9); GLOMERULAR FILTRATION RATE 41.3 mL/min (>60); POTASSIUM 4.1 mEQ/L (3.4-4.9); TOTAL PROTEIN 8.1 g/dL (6.6-8.7)
[2016-07-24 11:52] VITALS: BP 123/95
--- NOTE | 2016-07-24 13:02 | Diagnostic Imaging Report ---
Indication: Abdominal pain, pancreatitis, Nilson gastritis and duodenitis, vomiting Technique: Coronal and axial single shot fast spin-echo breath-hold, axial T2 FRFSE, 2-D thick slab MRCP, AXIAL 2-D FIESTA fat saturated, axial 3-D dual echo breath-hold, water weighted axial LAVA FLEX, revealed 3-D MRCP images were obtained of the abdomen. MIP reconstructions were generated of the bile ducts Comparison: Abdomen ultrasound dated 07/18/2016 Findings: Exam is limited due to motion artifact. Per technologist, patient was unable to old breath optimally. There is dilatation of the common bile duct, which measures approximately 10 diameter. Only minimal if any central intrahepatic biliary ductal dilatation is demonstrated. No definite intraluminal filling defects are demonstrated, although the degree of motion artifact precludes confident exclusion of such. No definite pancreatic head mass. The gallbladder is not visualized, presumed surgically absent. Cystic duct stump is noted. The pancreatic duct is normal in caliber. The liver is unremarkable. The pancreas is grossly unremarkable. The spleen and adrenals are grossly unremarkable. There is a small sliding-type hiatal hernia. The adrenals are grossly unremarkable. The kidneys are grossly unremarkable. Impression: Limited exam, as described, due to motion artifact Dilated extrahepatic bile ducts. No definite downstream obstruction lesion. Findings may be due to patient's age and postcholecystectomy state. However, occult obstructing lesion at the level of the ampulla not completely excludable. Suggestion of duodenal wall thickening, possibility of duodenitis should be considered Small sliding-type hernia
--- NOTE | 2016-07-24 14:16 | General Progress Note ---
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 (3) Anemia ICD Codes: D64.9 - Anemia, unspecified SNOMED: 168350975 (4) Diabetes ICD Codes: E11.9 - Type 2 diabetes mellitus without complications SNOMED: 85991096 (5) Intractable nausea and vomiting ICD Codes: R11.2 - Nausea with vomiting, unspecified SNOMED: 370663616, 962021902 (6) Seizure disorder ICD Codes: G40.909 - Epilepsy, unspecified, not intractable, without status epilepticus SNOMED: 922183717 (7) HTN (hypertension) ICD Codes: I10 - Essential (primary) hypertension SNOMED: 78872453 Status: stable, progressing, tolerating diet Assessment/Plan ot pt diet antiemetic gi f/u cbc bmp am dc if gi clears Subjective Constitutional: Reports: weakness Allergies: Coded Allergies: PENICILLINS (Verified Allergy, Unknown, 01/31/11) STREPTOMYCIN (Verified Allergy, Unknown, 07/18/16) Uncoded Allergies: EGGS (Allergy, Unknown, 01/31/11) All Systems: reviewed and negative except above Subjective sleepy calm Objective Last 24 Hour Vital Signs Date Time Temp Pulse Resp B/P Pulse Ox O2 Delivery O2 Flow Rate FiO2 07/24/16 11:52 97.6 99 19 123/95 96 Room Air 07/24/16 10:47 95 167/71 07/24/16 10:46 95 167/71 07/24/16 10:46 167/71 07/24/16 08:09 97.2 95 19 167/71 97 Room Air 07/24/16 04:00 97.5 92 20 140/79 95 Room Air 07/24/16 00:00 97.3 77 18 124/69 97 Room Air 07/23/16 20:49 84 150/75 07/23/16 20:00 98.1 84 19 150/75 96 Room Air 07/23/16 17:30 149/94 07/23/16 16:28 97.5 85 16 149/94 100 Room Air Intake and Output 07/23/16 07/24/16 19:00 07:00 Intake Total 1400 ml 120 ml Output Total 600 ml Balance 800 ml 120 ml Intake Oral 1400 ml 120 ml Output Urine Total 600 ml # Voids 2 # Bowel Movements 1 Laboratory Tests 07/24/16 10:50: White Blood Count 8.0, Red Blood Count 4.24, Hemoglobin 12.9, Hematocrit 40.1, Mean Corpuscular Volume 95, Mean Corpuscular Hemoglobin 30.5, Mean Corpuscular Hemoglobin Concent 32.3, Red Cell Distribution Width 13.6, Platelet Count 290, Mean Platelet Volume 7.2, Neutrophils (%) (Auto) 63.9, Lymphocytes (%) (Auto) 25.6, Monocytes (%) (Auto) 6.9, Eosinophils (%) (Auto) 2.7, Basophils (%) (Auto ) 0.8, Sodium Level 143, Potassium Level 4.1, Chloride Level 101, Carbon Dioxide Level 26, Anion Gap 16H, Blood Urea Nitrogen 16, Creatinine 1.3H, Estimat Glomerular Filtration Rate 41.3, Glucose Level 130H, Calcium Level 9.6, Total Bilirubin 0.3, Aspartate Amino Transf (AST/SGOT) 17, Alanine Aminotransferase (ALT/SGPT) 13, Alkaline Phosphatase 101, Total Protein 8.1, Albumin 4.0, Globulin 4.1, Albumin/Globulin Ratio 0.9L Height (Feet): 5 Height (Inches): 5.00 Weight (Pounds): 200 General Appearance: lethargic, confused EENT: normal ENT inspection Neck: normal alignment Cardiovascular: normal peripheral pulses, normal rate, regular rhythm Respiratory/Chest: chest wall non-tender, lungs clear, normal breath sounds Abdomen: normal bowel sounds, non tender, soft Extremities: normal inspection Edema: no edema noted Arm (L), no edema noted Arm (R), no edema noted Leg (L), no edema noted Leg (R), no edema noted Pedal (L), no edema noted Pedal (R), no edema noted Generalized Neurologic: responsive, motor weakness Skin: normal pigmentation, warm/dry DELMIS TNEORIO Jul 24, 2016 14:16
--- NOTE | 2016-07-24 14:41 | Cardiology Progress Note ---
Assessment/Plan Assessment/Plan 1. Accelerated HTN, continue with amlodipine and carvedilol, clonidine PRN, may have to optimize coreg for better double product control. 2. DM, consider adding ASA to the regimen. 3. Hx of CAD, stable, medical therapy with coreg and atorvastatin, will consider adding ASA 4. Dyslipidemia, continue atorvastatin. Subjective Subjective No complains about chest pain or SOB. Not on tele unit. Objective Last 24 Hour Vital Signs Date Time Temp Pulse Resp B/P Pulse Ox O2 Delivery O2 Flow Rate FiO2 07/24/16 11:52 97.6 99 19 123/95 96 Room Air 07/24/16 10:47 95 167/71 07/24/16 10:46 95 167/71 07/24/16 10:46 167/71 07/24/16 08:09 97.2 95 19 167/71 97 Room Air 07/24/16 04:00 97.5 92 20 140/79 95 Room Air 07/24/16 00:00 97.3 77 18 124/69 97 Room Air 07/23/16 20:49 84 150/75 07/23/16 20:00 98.1 84 19 150/75 96 Room Air 07/23/16 17:30 149/94 07/23/16 16:28 97.5 85 16 149/94 100 Room Air Intake and Output 07/23/16 07/24/16 19:00 07:00 Intake Total 1400 ml 120 ml Output Total 600 ml Balance 800 ml 120 ml Intake Oral 1400 ml 120 ml Output Urine Total 600 ml # Voids 2 # Bowel Movements 1 Laboratory Tests Test 07/24/16 10:50 White Blood Count 8.0 K/UL (4.8-10.8) Red Blood Count 4.24 M/UL (4.20-5.40) Hemoglobin 12.9 G/DL (12.0-16.0) Hematocrit 40.1 % (37.0-47.0) Mean Corpuscular Volume 95 FL (80-99) Mean Corpuscular Hemoglobin 30.5 PG (27.0-31.0) Mean Corpuscular Hemoglobin Concent 32.3 G/DL (32.0-36.0) Red Cell Distribution Width 13.6 % (11.6-14.8) Platelet Count 290 K/UL (150-450) Mean Platelet Volume 7.2 FL (6.5-10.1) Neutrophils (%) (Auto) 63.9 % (45.0-75.0) Lymphocytes (%) (Auto) 25.6 % (20.0-45.0) Monocytes (%) (Auto) 6.9 % (1.0-10.0) Eosinophils (%) (Auto) 2.7 % (0.0-3.0) Basophils (%) (Auto) 0.8 % (0.0-2.0) Sodium Level 143 mEQ/L (135-145) Potassium Level 4.1 mEQ/L (3.4-4.9) Chloride Level 101 mEQ/L (98-107) Carbon Dioxide Level 26 mEQ/L (20-30) Anion Gap 16 (5-15) H Blood Urea Nitrogen 16 mg/dL (7-23) Creatinine 1.3 mg/dL (0.5-0.9) H Estimat Glomerular Filtration Rate 41.3 mL/min (>60) Glucose Level 130 mg/dL (74-106) H Calcium Level 9.6 mg/dL (8.6-10.2) Total Bilirubin 0.3 mg/dL (0.0-1.2) Aspartate Amino Transf (AST/SGOT) 17 U/L (5-40) Alanine Aminotransferase (ALT/SGPT) 13 U/L (3-33) Alkaline Phosphatase 101 U/L (35-104) Total Protein 8.1 g/dL (6.6-8.7) Albumin 4.0 g/dL (3.5-5.2) Globulin 4.1 g/dL Albumin/Globulin Ratio 0.9 (1.0-2.7) L Objective HEAD AND : Atraumatic, normocephalic, extraocular movement intact. Pupils are reactive to light and accommodation. NECK: No JVP, no carotid bruit, upstroke was 2+ B/L. LUNGS: Clear to auscultation. CARDIAC: Regular rate and rhythm. Normal S1 and S2. No murmur, gallops or rub. ABDOMEN: Soft, nontender, and nondistended, + BS. EXTREMITIES: Trace edema. No clubbing or cyanosis. TRAM BOSE Jul 24, 2016 14:41
[2016-07-24 16:00] VITALS: BP 141/62
--- NOTE | 2016-07-24 16:52 | Pulmonology Progress Note ---
Assessment/Plan Problems: (1) Intractable nausea and vomiting (2) Seizure disorder (3) Anemia (4) HTN (hypertension) Assessment/Plan no new complains eating well insulin coverage dvt prophylaxis Subjective ROS Limited/Unobtainable: No Interval Events: comfortable Allergies: Coded Allergies: PENICILLINS (Verified Allergy, Unknown, 01/31/11) STREPTOMYCIN (Verified Allergy, Unknown, 07/18/16) Uncoded Allergies: EGGS (Allergy, Unknown, 01/31/11) Objective Last 24 Hour Vital Signs Date Time Temp Pulse Resp B/P Pulse Ox O2 Delivery O2 Flow Rate FiO2 07/24/16 16:00 96.8 84 20 141/62 97 Room Air 07/24/16 11:52 97.6 99 19 123/95 96 Room Air 07/24/16 10:47 95 167/71 07/24/16 10:46 95 167/71 07/24/16 10:46 167/71 07/24/16 08:09 97.2 95 19 167/71 97 Room Air 07/24/16 04:00 97.5 92 20 140/79 95 Room Air 07/24/16 00:00 97.3 77 18 124/69 97 Room Air 07/23/16 20:49 84 150/75 07/23/16 20:00 98.1 84 19 150/75 96 Room Air 07/23/16 17:30 149/94 Intake and Output 07/23/16 07/24/16 19:00 07:00 Intake Total 1400 ml 120 ml Output Total 600 ml Balance 800 ml 120 ml Intake Oral 1400 ml 120 ml Output Urine Total 600 ml # Voids 2 # Bowel Movements 1 Objective General Appearance: WD/WN, Lines, tubes and drains: peripheral, central line HEENT: normocephalic Neck: non-tender Respiratory/Chest: chest wall non-tender, lungs clear Cardiovascular/Chest: normal peripheral pulses, normal rate Abdomen: normal bowel sounds, non tender Genitourinary/Rectal: normal genital exam Extremities: normal range of motion Neurologic: idea man II-XII grossly normal Laboratory Tests 07/24/16 10:50: White Blood Count 8.0, Red Blood Count 4.24, Hemoglobin 12.9, Hematocrit 40.1, Mean Corpuscular Volume 95, Mean Corpuscular Hemoglobin 30.5, Mean Corpuscular Hemoglobin Concent 32.3, Red Cell Distribution Width 13.6, Platelet Count 290, Mean Platelet Volume 7.2, Neutrophils (%) (Auto) 63.9, Lymphocytes (%) (Auto) 25.6, Monocytes (%) (Auto) 6.9, Eosinophils (%) (Auto) 2.7, Basophils (%) (Auto ) 0.8, Sodium Level 143, Potassium Level 4.1, Chloride Level 101, Carbon Dioxide Level 26, Anion Gap 16H, Blood Urea Nitrogen 16, Creatinine 1.3H, Estimat Glomerular Filtration Rate 41.3, Glucose Level 130H, Calcium Level 9.6, Total Bilirubin 0.3, Aspartate Amino Transf (AST/SGOT) 17, Alanine Aminotransferase (ALT/SGPT) 13, Alkaline Phosphatase 101, Total Protein 8.1, Albumin 4.0, Globulin 4.1, Albumin/Globulin Ratio 0.9L Current Medications Medications (Trade) Dose Ordered Sig/Salma Route PRN Reason Start Time Stop Time Status Last Admin Dose Admin Acetaminophen (Tylenol) 650 mg Q4H PRN ORAL fever 07/18/16 23:00 08/17/16 22:59 Al Hydroxide/Mg Hydroxide (Mylanta II) 30 ml Q6H PRN ORAL dyspepsia 07/18/16 23:00 08/17/16 22:59 Amlodipine Besylate (Norvasc) 10 mg DAILY ORAL 07/22/16 09:00 08/21/16 08:59 07/24/16 10:47 Atorvastatin Calcium (Lipitor) 20 mg BEDTIME ORAL 07/19/16 21:00 08/18/16 20:59 07/23/16 20:49 Carvedilol (Coreg) 25 mg EVERY 12 HOURS ORAL 07/24/16 21:00 08/23/16 20:59 Clonidine HCl (Catapres) 0.1 mg Q4H PRN ORAL SBP >150 07/19/16 08:00 08/18/16 07:59 07/20/16 21:56 Dextrose (Dextrose 50%) STAT PRN IV Hypoglycemia 07/18/16 23:00 08/17/16 22:59 Diphenhydramine HCl (Benadryl) 25 mg Q6H PRN ORAL Itching/Pruritis 07/18/16 23:00 08/17/16 22:59 Docusate Sodium (Colace) 100 mg DAILY ORAL 07/19/16 09:00 08/18/16 08:59 07/23/16 09:32 Heparin Sodium (Porcine) (Heparin 5000 units/ml) 5,000 units EVERY 12 HOURS SUBQ 07/19/16 09:00 08/18/16 08:59 07/24/16 10:51 Lactulose (Cephulac) 20 gm BID ORAL 07/19/16 09:00 08/18/16 08:59 07/23/16 17:29 Levothyroxine Sodium (Synthroid) 25 mcg DAILY@0630 ORAL 07/20/16 06:30 08/19/16 06:29 07/22/16 05:40 Morphine Sulfate (Morphine Sulfate) 2 mg Q4H PRN IVP severe Pain (Pain Scale 7-10) 07/18/16 23:00 07/25/16 22:59 Nitroglycerin (Ntg) 0.4 mg Q5M X 3 DOSES PRN SL Prn Chest Pain 07/18/16 23:00 08/17/16 22:59 Nystatin (Nystop Powder) 1 applic BID TOPIC 07/19/16 18:00 08/18/16 17:59 07/24/16 10:47 Ondansetron HCl (Zofran) 4 mg Q6H PRN IVP Nausea & Vomiting 07/18/16 23:00 08/17/16 22:59 Pantoprazole (Protonix) 40 mg DAILY ORAL 07/19/16 09:00 08/18/16 08:59 Future hold 07/24/16 10:47 Pentoxifylline (TRENtal) 400 mg THREE TIMES A DAY ORAL 07/19/16 10:00 08/18/16 09:59 07/24/16 10:46 Polyethylene Glycol (Miralax) 17 gm HSPRN PRN ORAL Constipation 07/18/16 23:00 08/17/16 22:59 Sitagliptin Phosphate (Januvia) 50 mg ACBREAKFAST ORAL 07/20/16 06:30 08/19/16 06:29 07/22/16 05:40 Temazepam (Restoril) 15 mg HSPRN PRN ORAL Insomnia 07/18/16 23:00 07/25/16 22:59 LAYLA ANGUIANO Jul 24, 2016 16:52
[2016-07-24 19:00] VITALS: BP 138/70
[2016-07-24] MEDS: Atorvastatin 20mg tab ORAL SCH (20:19)
[2016-07-24] MEDS: Carvedilol 25mg Tab ORAL SCH (20:23)
[2016-07-25] VITALS: BP 162/94
--- NOTE | 2016-07-25 00:19 | Consultation ---
DATE OF CONSULTATION: 07/20/2016 CARDIOLOGY CONSULTATION CONSULTING PHYSICIAN: Haider Schmidt M.D. REFERRING PHYSICIAN: Reilly Ely D.O. REASON FOR CONSULTATION: Management of accelerated hypertension. HISTORY OF PRESENT ILLNESS: This is a very unfortunate 65-year-old female, a very poor historian with underlying cognitive impairments, who was transferred from a custodial facility for episodes of nausea and vomiting as well as headaches. There is a question of urinary tract infection in the facility. The patient on arrival to the floor had a blood pressure of 167/71 mmHg. Her blood pressure was as high as 190/78 mmHg. Cardiology consultation was made at the request of Dr. Ely for management of this condition. The patient's cardiac history is significant for history of coronary artery disease, the detail of which is unknown. Her risk factors for coronary artery disease including diabetes mellitus, hypertension, and dyslipidemia. PAST MEDICAL HISTORY: 1. Diabetes mellitus. 2. Hypertension. 3. Hypothyroidism. 4. Dyslipidemia. 5. History of coronary artery disease, details of which is unknown. PAST SURGICAL HISTORY: None. MEDICATIONS: List of medication from [facility] includes atorvastatin 20 mg p.o. at bedtime, azithromycin 250 mg p.o. daily for six days, bacitracin ointment to apply three times a day, carvedilol 12.5 mg q.12 hours, Catapres 0.1 mg q.6 hours, Colace 100 mg 3 times daily, famotidine 20 mg p.o. daily, lactulose 30 mL p.o. daily, levothyroxine 25 mcg p.o. daily, Tradjenta 5 mg p.o. daily, magnesium oxide 400 mg p.o. daily, pantoprazole 40 mg p.o. daily, and Trental 400 mg 3 times a day. ALLERGIES: To penicillin and streptomycin. SOCIAL HISTORY: The patient is a resident of a nursing facility under the care of Dr. Reilly Ely. There is no prior history of tobacco, alcohol, or illicit drug use. FAMILY HISTORY: No premature coronary artery disease in first-degree relatives. REVIEW OF SYSTEMS: HEENT: Denies any headache, diplopia, or blurred vision. Constitutional: She is confused. She has no fever, chills, weight loss, or night sweats. She is complaining of generalized weakness. Cardiovascular: Denies any chest pain, shortness of breath, PND, orthopnea, leg swelling, syncope, or palpitation. Pulmonary: Denies any cough. She has got some shortness of breath. Gastrointestinal: She has nausea and vomiting episodes at least for about 3 to 4 times prior to arrival to the hospital. There is no GI bleed. Genitourinary: Denies any hematuria, dysuria, or incontinence. Neurologic: Denies any motor dysfunction, sensory deficit, or altered speech. PHYSICAL EXAMINATION: VITAL SIGNS: Blood pressure on 07/19/2016 was 190/78, heart rate was 79, respirations 20, temperature 97.3 degrees Fahrenheit, and O2 saturation is 95% on room air. GENERAL: The patient is a very unfortunate 65-year-old female, in no apparent respiratory distress. HEENT: Atraumatic and normocephalic. Anicteric. Pupils are equal, round, and reactive to light and accommodation. Extraocular muscles intact. NECK: JVP is less than 5 cm. No carotid bruit. Carotid upstrokes 2+ bilaterally. CARDIOVASCULAR: Normal S1 and S2. Regular rate and rhythm. No murmurs, gallops, or rubs. PMI is at fourth intercostal space at the midclavicular line. LUNGS: Clear to auscultation bilaterally. ABDOMEN: Soft, nontender, and nondistended. No hepatosplenomegaly. Positive bowel sounds. EXTREMITIES: No evidence of edema, clubbing, or cyanosis. LABORATORY AND DIAGNOSTIC DATA: WBC was 6.3, hemoglobin 11.5, hematocrit 35.7, and platelet count 239,000. Sodium 142, potassium 4.3, chloride 102, bicarbonate 27, BUN 27, creatinine 1.4, and glucose is 139. Calcium is 9.2. A 12-lead electrocardiogram was done . However, last electrocardiogram done in May 2016 had shown multifocal atrial tachycardia with normal axis, occasional premature ventricular complexes, and nonspecific ST and T-wave abnormalities. Chest x-ray was not done in this hospital, however, the chest x-ray from 05/13/2016 had showed no acute cardiopulmonary disease. ASSESSMENT AND PLAN: The patient is a very unfortunate 65-year-old female, who was seen in Cardiology consultation at the request of Dr. Reilly Ely. 1. Accelerated hypertension. I would like to continue with the current amlodipine and carvedilol. The patient was on clonidine [id number], however, I would like to place it on as-needed basis. May have to add Tradjenta to control the blood pressure and that choice will depend on the patient's renal function. 2. History of coronary artery disease, the details of which is unknown. I would like to obtain 12-lead electrocardiogram. Previously, the patient had multifocal atrial tachycardia with no ST and T-wave abnormalities. 3. History of multifocal atrial tachycardia in May 2016. Currently, the patient's rhythm is well controlled. 4. History of dyslipidemia. 5. History of diabetes mellitus. We would like to add aspirin to the regimen. I would like to thank, Dr. Ely, for allowing me to participate in the care of this patient. Haider Schmidt M.D. DR: TITA JOB#: [id number] CC:
[2016-07-25 04:00] VITALS: BP 108/61
[2016-07-25] MEDS: sitaGLIPtin 50mg tab ORAL SCH (06:24)
[2016-07-25] MEDS: Levothyroxine 25mcg tab ORAL SCH (06:24)
[2016-07-25] MEDS: Lactulose 20gm/30ml UDC ORAL SCH ×2 (08:03→17:14)
[2016-07-25 08:07] VITALS: BP 138/70
[2016-07-25] MEDS: Carvedilol 25mg Tab ORAL SCH ×2 (08:08→20:42)
[2016-07-25] MEDS: Docusate 250mg cap ORAL SCH (08:08)
[2016-07-25 08:14] LABS: BASOPHILS % (AUTO) 1.2 % (0.0-2.0); EOSINOPHILS % (AUTO) 3.5 % (0.0-3.0); LYMPHOCYTES % (AUTO) 31.5 % (20.0-45.0); MEAN CORPUSCULAR HEMOGLOBIN 30.6 PG (27.0-31.0); MEAN CORPUSCULAR HGB CONC 32.3 G/DL (32.0-36.0); MEAN CORPUSCULAR VOLUME 95 FL (80-99); MEAN PLATELET VOLUME 7.5 FL (6.5-10.1); MONOCYTES % (AUTO) 6.4 % (1.0-10.0); NEUTROPHILS % (AUTO) 57.3 % (45.0-75.0); PLATELET COUNT 249 K/UL (150-450); RED BLOOD COUNT 3.77 M/UL (4.20-5.40); RED CELL DISTRIBUTION WIDTH 13.3 % (11.6-14.8); WHITE BLOOD COUNT 5.8 K/UL (4.8-10.8)
[2016-07-25] MEDS: Heparin 5000 units/ml inj SUBQ SCH ×2 (08:16→20:44)
[2016-07-25 08:41] LABS: CALCIUM 9.4 mg/dL (8.6-10.2); CREATININE 1.5 mg/dL (0.5-0.9); GLOMERULAR FILTRATION RATE 34.9 mL/min (>60); POTASSIUM 4.2 mEQ/L (3.4-4.9)
[2016-07-25] MEDS: Nystatin Powder 100,000 units/gm 15gm TOPIC SCH ×2 (09:00→17:14)
--- NOTE | 2016-07-25 10:18 | Nephrology Progress Note ---
Assessment/Plan Assessment 1. Acute ON chronic kidney disease. 2. Possible diabetic nephropathy with 3+ proteinuria. 3. Intractable nausea and vomiting. resolved 4. Uncontrolled hypertension. now is improving 5. Diabetes. 6. Hypothyroidism. Plan Plan to continue current iv monitoring renal function monitoring electrolyte continue norvasc 10 check lab in am Subjective Constitutional: Reports: no symptoms HEENT: Reports: no symptoms Genitourinary: Reports: no symptoms Neurologic/Psychiatric: Reports: no symptoms Subjective alert and awake no complaints Objective Objective Last 24 Hour Vital Signs Date Time Temp Pulse Resp B/P Pulse Ox O2 Delivery O2 Flow Rate FiO2 07/25/16 08:10 138/67 07/25/16 08:08 70 138/67 07/25/16 08:07 97.8 87 19 138/70 98 Room Air 07/25/16 08:07 70 138/67 07/25/16 04:00 97.9 68 20 108/61 97 Room Air 07/25/16 01:46 162/94 07/25/16 00:00 98.2 93 20 162/94 96 Room Air 07/24/16 20:23 89 138/70 07/24/16 19:00 97.3 89 20 138/70 98 Room Air 07/24/16 17:43 141/62 07/24/16 16:00 96.8 84 20 141/62 97 Room Air 07/24/16 11:52 97.6 99 19 123/95 96 Room Air 07/24/16 10:47 95 167/71 07/24/16 10:46 95 167/71 07/24/16 10:46 167/71 Intake and Output 07/24/16 07/25/16 19:00 07:00 Intake Total 450 ml 240 ml Balance 450 ml 240 ml Intake Oral 450 ml 240 ml # Voids 3 6 Laboratory Tests 07/24/16 10:50: White Blood Count 8.0, Red Blood Count 4.24, Hemoglobin 12.9, Hematocrit 40.1, Mean Corpuscular Volume 95, Mean Corpuscular Hemoglobin 30.5, Mean Corpuscular Hemoglobin Concent 32.3, Red Cell Distribution Width 13.6, Platelet Count 290, Mean Platelet Volume 7.2, Neutrophils (%) (Auto) 63.9, Lymphocytes (%) (Auto) 25.6, Monocytes (%) (Auto) 6.9, Eosinophils (%) (Auto) 2.7, Basophils (%) (Auto ) 0.8, Sodium Level 143, Potassium Level 4.1, Chloride Level 101, Carbon Dioxide Level 26, Anion Gap 16H, Blood Urea Nitrogen 16, Creatinine 1.3H, Estimat Glomerular Filtration Rate 41.3, Glucose Level 130H, Calcium Level 9.6, Total Bilirubin 0.3, Aspartate Amino Transf (AST/SGOT) 17, Alanine Aminotransferase (ALT/SGPT) 13, Alkaline Phosphatase 101, Total Protein 8.1, Albumin 4.0, Globulin 4.1, Albumin/Globulin Ratio 0.9L 07/25/16 07:55: White Blood Count 5.8, Red Blood Count 3.77L, Hemoglobin 11.6L, Hematocrit 35.7L , Mean Corpuscular Volume 95, Mean Corpuscular Hemoglobin 30.6, Mean Corpuscular Hemoglobin Concent 32.3, Red Cell Distribution Width 13.3, Platelet Count 249, Mean Platelet Volume 7.5, Neutrophils (%) (Auto) 57.3, Lymphocytes (% ) (Auto) 31.5, Monocytes (%) (Auto) 6.4, Eosinophils (%) (Auto) 3.5H, Basophils (%) (Auto) 1.2, Sodium Level 139, Potassium Level 4.2, Chloride Level 99, Carbon Dioxide Level 25, Anion Gap 15, Blood Urea Nitrogen 19, Creatinine 1.5H, Estimat Glomerular Filtration Rate 34.9, Glucose Level 225H, Calcium Level 9.4 Height (Feet): 5 Height (Inches): 5.00 Weight (Pounds): 200 Objective HEAD AND NECK: No JVP. No LAD. No thyromegaly. Extraocular movement intact. Pupils are reactive to light and accommodation. LUNGS: Clear to auscultation. CARDIAC: Regular rate and rhythm. S1 and S2. No murmur. No rub. ABDOMEN: Soft, nontender, and nondistended. EXTREMITIES: Trace edema. No clubbing. No cyanosis. OMAR JAUREGUI Jul 25, 2016 10:18
[2016-07-25 11:32] VITALS: BP 104/58
--- NOTE | 2016-07-25 12:45 | General Progress Note ---
Assessment/Plan Problem List: (1) HTN (hypertension) ICD Codes: I10 - Essential (primary) hypertension SNOMED: 96836105 (2) Seizure disorder ICD Codes: G40.909 - Epilepsy, unspecified, not intractable, without status epilepticus SNOMED: 075407486 (3) Elevated lipase ICD Codes: R74.8 - Abnormal levels of other serum enzymes SNOMED: 176400389 (4) Hypoalbuminemia ICD Codes: E88.09 - Other disorders of plasma-protein metabolism, not elsewhere classified SNOMED: 714003846 (5) Diabetes ICD Codes: E11.9 - Type 2 diabetes mellitus without complications SNOMED: 25518015 (6) Anemia ICD Codes: D64.9 - Anemia, unspecified SNOMED: 271265190 (7) Dilated bile duct ICD Codes: K83.8 - Other specified diseases of biliary tract SNOMED: 910766406 Assessment/Plan esophagogastroduodenoscopy was canceled due to AMS last week stable H&H neg stool ob fu labs hold GI procedures for now fu LFTS fu MRCP >>> no CBD stone ok to dc GI stand point Subjective ROS Limited/Unobtainable: Yes Allergies: Coded Allergies: PENICILLINS (Verified Allergy, Unknown, 01/31/11) STREPTOMYCIN (Verified Allergy, Unknown, 07/18/16) Uncoded Allergies: EGGS (Allergy, Unknown, 01/31/11) Subjective no event Objective Last 24 Hour Vital Signs Date Time Temp Pulse Resp B/P Pulse Ox O2 Delivery O2 Flow Rate FiO2 07/25/16 11:32 97.5 77 19 104/58 97 Room Air 07/25/16 08:10 138/67 07/25/16 08:08 70 138/67 07/25/16 08:07 97.8 87 19 138/70 98 Room Air 07/25/16 08:07 70 138/67 07/25/16 04:00 97.9 68 20 108/61 97 Room Air 07/25/16 01:46 162/94 07/25/16 00:00 98.2 93 20 162/94 96 Room Air 07/24/16 20:23 89 138/70 07/24/16 19:00 97.3 89 20 138/70 98 Room Air 07/24/16 17:43 141/62 07/24/16 16:00 96.8 84 20 141/62 97 Room Air Intake and Output 07/24/16 07/25/16 19:00 07:00 Intake Total 450 ml 240 ml Balance 450 ml 240 ml Intake Oral 450 ml 240 ml # Voids 3 6 Laboratory Tests 07/25/16 07:55: White Blood Count 5.8, Red Blood Count 3.77L, Hemoglobin 11.6L, Hematocrit 35.7L , Mean Corpuscular Volume 95, Mean Corpuscular Hemoglobin 30.6, Mean Corpuscular Hemoglobin Concent 32.3, Red Cell Distribution Width 13.3, Platelet Count 249, Mean Platelet Volume 7.5, Neutrophils (%) (Auto) 57.3, Lymphocytes (% ) (Auto) 31.5, Monocytes (%) (Auto) 6.4, Eosinophils (%) (Auto) 3.5H, Basophils (%) (Auto) 1.2, Sodium Level 139, Potassium Level 4.2, Chloride Level 99, Carbon Dioxide Level 25, Anion Gap 15, Blood Urea Nitrogen 19, Creatinine 1.5H, Estimat Glomerular Filtration Rate 34.9, Glucose Level 225H, Calcium Level 9.4 Height (Feet): 5 Height (Inches): 5.00 Weight (Pounds): 200 General Appearance: alert EENT: normal ENT inspection Neck: supple Cardiovascular: normal rate Respiratory/Chest: lungs clear Abdomen: normal bowel sounds, non tender, soft Extremities: non-tender CHRIS PETERSON Jul 25, 2016 12:45
--- NOTE | 2016-07-25 13:13 | General Progress Note ---
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 (3) Anemia ICD Codes: D64.9 - Anemia, unspecified SNOMED: 088146551 (4) Diabetes ICD Codes: E11.9 - Type 2 diabetes mellitus without complications SNOMED: 95426634 (5) Intractable nausea and vomiting ICD Codes: R11.2 - Nausea with vomiting, unspecified SNOMED: 771529424, 149985892 (6) Seizure disorder ICD Codes: G40.909 - Epilepsy, unspecified, not intractable, without status epilepticus SNOMED: 431000543 (7) HTN (hypertension) ICD Codes: I10 - Essential (primary) hypertension SNOMED: 76835566 Status: stable, progressing, tolerating diet Assessment/Plan ot pt diet antiemetic gi f/u dc pt Subjective Constitutional: Reports: weakness Allergies: Coded Allergies: PENICILLINS (Verified Allergy, Unknown, 01/31/11) STREPTOMYCIN (Verified Allergy, Unknown, 07/18/16) Uncoded Allergies: EGGS (Allergy, Unknown, 01/31/11) All Systems: reviewed and negative except above Subjective sleepy calm Objective Last 24 Hour Vital Signs Date Time Temp Pulse Resp B/P Pulse Ox O2 Delivery O2 Flow Rate FiO2 07/25/16 11:32 97.5 77 19 104/58 97 Room Air 07/25/16 08:10 138/67 07/25/16 08:08 70 138/67 07/25/16 08:07 97.8 87 19 138/70 98 Room Air 07/25/16 08:07 70 138/67 07/25/16 04:00 97.9 68 20 108/61 97 Room Air 07/25/16 01:46 162/94 07/25/16 00:00 98.2 93 20 162/94 96 Room Air 07/24/16 20:23 89 138/70 07/24/16 19:00 97.3 89 20 138/70 98 Room Air 07/24/16 17:43 141/62 07/24/16 16:00 96.8 84 20 141/62 97 Room Air Intake and Output 07/24/16 07/25/16 19:00 07:00 Intake Total 450 ml 240 ml Balance 450 ml 240 ml Intake Oral 450 ml 240 ml # Voids 3 6 Laboratory Tests 07/25/16 07:55: White Blood Count 5.8, Red Blood Count 3.77L, Hemoglobin 11.6L, Hematocrit 35.7L , Mean Corpuscular Volume 95, Mean Corpuscular Hemoglobin 30.6, Mean Corpuscular Hemoglobin Concent 32.3, Red Cell Distribution Width 13.3, Platelet Count 249, Mean Platelet Volume 7.5, Neutrophils (%) (Auto) 57.3, Lymphocytes (% ) (Auto) 31.5, Monocytes (%) (Auto) 6.4, Eosinophils (%) (Auto) 3.5H, Basophils (%) (Auto) 1.2, Sodium Level 139, Potassium Level 4.2, Chloride Level 99, Carbon Dioxide Level 25, Anion Gap 15, Blood Urea Nitrogen 19, Creatinine 1.5H, Estimat Glomerular Filtration Rate 34.9, Glucose Level 225H, Calcium Level 9.4 Height (Feet): 5 Height (Inches): 5.00 Weight (Pounds): 200 General Appearance: confused EENT: normal ENT inspection Neck: normal alignment Cardiovascular: normal peripheral pulses, normal rate, regular rhythm Respiratory/Chest: chest wall non-tender, lungs clear, normal breath sounds Abdomen: normal bowel sounds, non tender, soft Extremities: normal inspection Edema: no edema noted Arm (L), no edema noted Arm (R), no edema noted Leg (L), no edema noted Leg (R), no edema noted Pedal (L), no edema noted Pedal (R), no edema noted Generalized Neurologic: motor weakness Skin: normal pigmentation, warm/dry DELMIS TENORIO Jul 25, 2016 13:13
[2016-07-25 16:00] VITALS: BP 143/89
[2016-07-25] MEDS ORDERED: TYLENOL650 MG/20. ORAL (16:40)
[2016-07-25] MEDS ORDERED: MYLANTA30 M1 ORAL (16:42)
[2016-07-25] MEDS ORDERED: NORVASC10 MG ORAL (16:43)
[2016-07-25] MEDS ORDERED: BENADRYL25 M3 PO (16:44)
[2016-07-25] MEDS ORDERED: HEPARIN SO5000 UNIT2 SUBQ (16:45)
[2016-07-25] MEDS ORDERED: MORPHINE 22 MG/1 ML IV (16:46)
--- NOTE | 2016-07-25 16:47 | Pulmonology Progress Note ---
Assessment/Plan Problems: (1) Intractable nausea and vomiting (2) Seizure disorder (3) Anemia (4) HTN (hypertension) Assessment/Plan no new complains eating well insulin coverage dvt prophylaxis dc home today Subjective ROS Limited/Unobtainable: No Constitutional: Reports: no symptoms HEENT: Repors: no symptoms Respiratory: Reports: no symptoms Cardiovascular: Reports: no symptoms Allergies: Coded Allergies: PENICILLINS (Verified Allergy, Unknown, 01/31/11) STREPTOMYCIN (Verified Allergy, Unknown, 07/18/16) Uncoded Allergies: EGGS (Allergy, Unknown, 01/31/11) Objective Last 24 Hour Vital Signs Date Time Temp Pulse Resp B/P Pulse Ox O2 Delivery O2 Flow Rate FiO2 07/25/16 16:00 97.3 74 20 143/89 97 Room Air 07/25/16 13:00 104/58 07/25/16 11:32 97.5 77 19 104/58 97 Room Air 07/25/16 08:10 138/67 07/25/16 08:08 70 138/67 07/25/16 08:07 97.8 87 19 138/70 98 Room Air 07/25/16 08:07 70 138/67 07/25/16 04:00 97.9 68 20 108/61 97 Room Air 07/25/16 01:46 162/94 07/25/16 00:00 98.2 93 20 162/94 96 Room Air 07/24/16 20:23 89 138/70 07/24/16 19:00 97.3 89 20 138/70 98 Room Air 07/24/16 17:43 141/62 Intake and Output 07/24/16 07/25/16 19:00 07:00 Intake Total 450 ml 240 ml Balance 450 ml 240 ml Intake Oral 450 ml 240 ml # Voids 3 6 Objective General Appearance: WD/WN, Lines, tubes and drains: peripheral, central line HEENT: normocephalic Neck: non-tender Respiratory/Chest: chest wall non-tender, lungs clear Cardiovascular/Chest: normal peripheral pulses, normal rate Abdomen: normal bowel sounds, non tender Genitourinary/Rectal: normal genital exam Extremities: normal range of motion 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 Laboratory Tests 07/25/16 07:55: White Blood Count 5.8, Red Blood Count 3.77L, Hemoglobin 11.6L, Hematocrit 35.7L , Mean Corpuscular Volume 95, Mean Corpuscular Hemoglobin 30.6, Mean Corpuscular Hemoglobin Concent 32.3, Red Cell Distribution Width 13.3, Platelet Count 249, Mean Platelet Volume 7.5, Neutrophils (%) (Auto) 57.3, Lymphocytes (% ) (Auto) 31.5, Monocytes (%) (Auto) 6.4, Eosinophils (%) (Auto) 3.5H, Basophils (%) (Auto) 1.2, Sodium Level 139, Potassium Level 4.2, Chloride Level 99, Carbon Dioxide Level 25, Anion Gap 15, Blood Urea Nitrogen 19, Creatinine 1.5H, Estimat Glomerular Filtration Rate 34.9, Glucose Level 225H, Calcium Level 9.4 Current Medications Medications (Trade) Dose Ordered Sig/Salma Route PRN Reason Start Time Stop Time Status Last Admin Dose Admin Acetaminophen (Tylenol) 650 mg Q4H PRN ORAL fever 07/25/16 03:00 08/24/16 02:59 07/25/16 03:20 Al Hydroxide/Mg Hydroxide (Mylanta II) 30 ml Q6H PRN ORAL dyspepsia 07/18/16 23:00 08/17/16 22:59 Amlodipine Besylate (Norvasc) 10 mg DAILY ORAL 07/22/16 09:00 08/21/16 08:59 07/25/16 08:07 Atorvastatin Calcium (Lipitor) 20 mg BEDTIME ORAL 07/19/16 21:00 08/18/16 20:59 07/24/16 20:19 Carvedilol (Coreg) 25 mg EVERY 12 HOURS ORAL 07/24/16 21:00 08/23/16 20:59 07/25/16 08:08 Clonidine HCl (Catapres) 0.1 mg Q4H PRN ORAL SBP >150 07/19/16 08:00 08/18/16 07:59 07/25/16 01:46 Dextrose (Dextrose 50%) STAT PRN IV Hypoglycemia 07/18/16 23:00 08/17/16 22:59 Diphenhydramine HCl (Benadryl) 25 mg Q6H PRN ORAL Itching/Pruritis 07/18/16 23:00 08/17/16 22:59 Docusate Sodium (Colace) 100 mg DAILY ORAL 07/19/16 09:00 4/14/17 08:59 07/25/16 08:08 Heparin Sodium (Porcine) (Heparin 5000 units/ml) 5,000 units EVERY 12 HOURS SUBQ 07/19/16 09:00 08/18/16 08:59 07/25/16 08:16 Lactulose (Cephulac) 20 gm BID ORAL 07/19/16 09:00 08/18/16 08:59 07/23/16 17:29 Levothyroxine Sodium (Synthroid) 25 mcg DAILY@0630 ORAL 07/20/16 06:30 08/19/16 06:29 07/22/16 05:40 Morphine Sulfate (Morphine Sulfate) 2 mg Q4H PRN IVP severe Pain (Pain Scale 7-10) 07/18/16 23:00 07/25/16 22:59 Nitroglycerin (Ntg) 0.4 mg Q5M X 3 DOSES PRN SL Prn Chest Pain 07/18/16 23:00 08/17/16 22:59 Nystatin (Nystop Powder) 1 applic BID TOPIC 07/19/16 18:00 08/18/16 17:59 07/24/16 10:47 Ondansetron HCl (Zofran) 4 mg Q6H PRN IVP Nausea & Vomiting 07/18/16 23:00 08/17/16 22:59 Pantoprazole (Protonix) 40 mg DAILY ORAL 07/19/16 09:00 08/18/16 08:59 Future hold 07/25/16 08:10 Pentoxifylline (TRENtal) 400 mg THREE TIMES A DAY ORAL 07/19/16 10:00 08/18/16 09:59 07/25/16 08:10 Polyethylene Glycol (Miralax) 17 gm HSPRN PRN ORAL Constipation 07/18/16 23:00 08/17/16 22:59 Sitagliptin Phosphate (Januvia) 50 mg ACBREAKFAST ORAL 07/20/16 06:30 08/19/16 06:29 07/22/16 05:40 Temazepam (Restoril) 15 mg HSPRN PRN ORAL Insomnia 07/18/16 23:00 07/25/16 22:59 LAYLA ANGUIANO Jul 25, 2016 16:47
[2016-07-25] MEDS ORDERED: ZOFRAN 4 MG4 MG/2 ML IV (16:50)
[2016-07-25] MEDS ORDERED: NITROGLYCERIN0.4 MG SL (16:50)
[2016-07-25] MEDS ORDERED: POLYETHYLENE GL17 GM ORAL (16:51)
[2016-07-25] MEDS ORDERED: JANUVIA50 MG ORAL (16:51)
[2016-07-25] MEDS ORDERED: TEMAZEPAM15 MG ORAL (16:51)
[2016-07-25] MEDS ORDERED: SALINE 10ML FLU10 ML IVF (16:52)
[2016-07-25 19:00] VITALS: BP 128/61
[2016-07-25] MEDS: Atorvastatin 20mg tab ORAL SCH (20:42)
[2016-07-26] VITALS: BP 141/73
[2016-07-26 04:00] VITALS: BP 144/68
[2016-07-26] MEDS: Levothyroxine 25mcg tab ORAL SCH (05:48)
[2016-07-26] MEDS: sitaGLIPtin 50mg tab ORAL SCH (05:48)
[2016-07-26 07:55] VITALS: BP 175/68
[2016-07-26] MEDS: Carvedilol 25mg Tab ORAL SCH (08:04)
[2016-07-26] MEDS: Docusate 250mg cap ORAL SCH (08:04)
[2016-07-26] MEDS: Heparin 5000 units/ml inj SUBQ SCH (08:05)
[2016-07-26] MEDS: Nystatin Powder 100,000 units/gm 15gm TOPIC SCH ×2 (08:08→17:33)
[2016-07-26] MEDS: Lactulose 20gm/30ml UDC ORAL SCH ×2 (08:08→17:34)
--- NOTE | 2016-07-26 08:28 | Nephrology Progress Note ---
Assessment/Plan Assessment 1. Acute on chronic kidney disease.stable 2. Possible diabetic nephropathy with 3+ proteinuria. 3. Intractable nausea and vomiting. resolved 4. Uncontrolled hypertension. now is improving 5. Diabetes.uncontrolled 6. Hypothyroidism. Plan Plan to continue current iv monitoring renal function monitoring electrolyte continue norvasc 10 check lab in am Subjective Constitutional: Reports: no symptoms HEENT: Reports: no symptoms Genitourinary: Reports: no symptoms Neurologic/Psychiatric: Reports: no symptoms Subjective alert and awake no complaints Objective Objective Last 24 Hour Vital Signs Date Time Temp Pulse Resp B/P Pulse Ox O2 Delivery O2 Flow Rate FiO2 07/26/16 08:04 94 175/68 07/26/16 08:04 94 175/68 07/26/16 08:04 175/68 07/26/16 07:55 97.9 94 19 175/68 98 Room Air 07/26/16 04:00 97.7 79 20 144/68 96 Room Air 07/26/16 00:00 97.2 83 20 141/73 Room Air 97.0 07/25/16 20:42 77 128/61 07/25/16 19:00 97.3 72 20 128/61 98 Room Air 07/25/16 17:14 143/89 07/25/16 16:00 97.3 74 20 143/89 97 Room Air 07/25/16 13:00 104/58 07/25/16 11:32 97.5 77 19 104/58 97 Room Air Intake and Output 07/25/16 07/26/16 19:00 07:00 Intake Total 520 ml 240 ml Balance 520 ml 240 ml Intake Oral 520 ml 240 ml # Voids 4 5 Height (Feet): 5 Height (Inches): 5.00 Weight (Pounds): 200 Objective HEAD AND NECK: No JVP. No LAD. No thyromegaly. Extraocular movement intact. Pupils are reactive to light and accommodation. LUNGS: Clear to auscultation. CARDIAC: Regular rate and rhythm. S1 and S2. No murmur. No rub. ABDOMEN: Soft, nontender, and nondistended. EXTREMITIES: Trace edema. No clubbing. No cyanosis. OMAR JAUREGUI Jul 26, 2016 08:28
--- NOTE | 2016-07-26 10:10 | General Progress Note ---
Assessment/Plan Problem List: (1) HTN (hypertension) ICD Codes: I10 - Essential (primary) hypertension SNOMED: 27701111 (2) Seizure disorder ICD Codes: G40.909 - Epilepsy, unspecified, not intractable, without status epilepticus SNOMED: 731101781 (3) Elevated lipase ICD Codes: R74.8 - Abnormal levels of other serum enzymes SNOMED: 426166663 (4) Hypoalbuminemia ICD Codes: E88.09 - Other disorders of plasma-protein metabolism, not elsewhere classified SNOMED: 086495827 (5) Diabetes ICD Codes: E11.9 - Type 2 diabetes mellitus without complications SNOMED: 12179979 (6) Anemia ICD Codes: D64.9 - Anemia, unspecified SNOMED: 086175874 (7) Dilated bile duct ICD Codes: K83.8 - Other specified diseases of biliary tract SNOMED: 983599925 Assessment/Plan esophagogastroduodenoscopy was canceled due to AMS last week stable H&H neg stool ob fu labs hold GI procedures for now fu LFTS fu MRCP >>> no CBD stone ok to dc GI stand point Subjective ROS Limited/Unobtainable: Yes Allergies: Coded Allergies: PENICILLINS (Verified Allergy, Unknown, 01/31/11) STREPTOMYCIN (Verified Allergy, Unknown, 07/18/16) Uncoded Allergies: EGGS (Allergy, Unknown, 01/31/11) Subjective no event Objective Last 24 Hour Vital Signs Date Time Temp Pulse Resp B/P Pulse Ox O2 Delivery O2 Flow Rate FiO2 07/26/16 08:04 94 175/68 07/26/16 08:04 94 175/68 07/26/16 08:04 175/68 07/26/16 07:55 97.9 94 19 175/68 98 Room Air 07/26/16 04:00 97.7 79 20 144/68 96 Room Air 07/26/16 00:00 97.2 83 20 141/73 Room Air 97.0 07/25/16 20:42 77 128/61 07/25/16 19:00 97.3 72 20 128/61 98 Room Air 07/25/16 17:14 143/89 07/25/16 16:00 97.3 74 20 143/89 97 Room Air 07/25/16 13:00 104/58 07/25/16 11:32 97.5 77 19 104/58 97 Room Air Intake and Output 07/25/16 07/26/16 19:00 07:00 Intake Total 520 ml 240 ml Balance 520 ml 240 ml Intake Oral 520 ml 240 ml # Voids 4 5 Height (Feet): 5 Height (Inches): 5.00 Weight (Pounds): 200 General Appearance: no apparent distress EENT: normal ENT inspection Neck: supple Cardiovascular: normal rate Respiratory/Chest: decreased breath sounds Abdomen: normal bowel sounds, non tender, soft Extremities: non-tender CHRIS PETERSON Jul 26, 2016 10:10
[2016-07-26 11:43] VITALS: BP 120/70
--- NOTE | 2016-07-26 12:51 | General Progress Note ---
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 (3) Anemia ICD Codes: D64.9 - Anemia, unspecified SNOMED: 745847813 (4) Diabetes ICD Codes: E11.9 - Type 2 diabetes mellitus without complications SNOMED: 02175599 (5) Intractable nausea and vomiting ICD Codes: R11.2 - Nausea with vomiting, unspecified SNOMED: 566521418, 399201101 (6) Seizure disorder ICD Codes: G40.909 - Epilepsy, unspecified, not intractable, without status epilepticus SNOMED: 568256872 (7) HTN (hypertension) ICD Codes: I10 - Essential (primary) hypertension SNOMED: 01142090 Status: stable, progressing, tolerating diet Assessment/Plan ot pt diet antiemetic cbc bmp am gi f/u dc pt Subjective Constitutional: Reports: weakness Allergies: Coded Allergies: PENICILLINS (Verified Allergy, Unknown, 01/31/11) STREPTOMYCIN (Verified Allergy, Unknown, 07/18/16) Uncoded Allergies: EGGS (Allergy, Unknown, 01/31/11) All Systems: reviewed and negative except above Subjective sleepy calm Objective Last 24 Hour Vital Signs Date Time Temp Pulse Resp B/P Pulse Ox O2 Delivery O2 Flow Rate FiO2 07/26/16 11:43 97.1 88 19 120/70 97 Room Air 07/26/16 08:04 94 175/68 07/26/16 08:04 94 175/68 07/26/16 08:04 175/68 07/26/16 07:55 97.9 94 19 175/68 98 Room Air 07/26/16 04:00 97.7 79 20 144/68 96 Room Air 07/26/16 00:00 97.2 83 20 141/73 Room Air 97.0 07/25/16 20:42 77 128/61 07/25/16 19:00 97.3 72 20 128/61 98 Room Air 07/25/16 17:14 143/89 07/25/16 16:00 97.3 74 20 143/89 97 Room Air 07/25/16 13:00 104/58 Intake and Output 07/25/16 07/26/16 19:00 07:00 Intake Total 520 ml 240 ml Balance 520 ml 240 ml Intake Oral 520 ml 240 ml # Voids 4 5 Height (Feet): 5 Height (Inches): 5.00 Weight (Pounds): 200 General Appearance: lethargic EENT: normal ENT inspection Neck: normal alignment Cardiovascular: normal peripheral pulses, normal rate, regular rhythm Respiratory/Chest: chest wall non-tender, lungs clear, normal breath sounds Abdomen: normal bowel sounds, non tender, soft Extremities: normal inspection Edema: no edema noted Arm (L), no edema noted Arm (R), no edema noted Leg (L), no edema noted Leg (R), no edema noted Pedal (L), no edema noted Pedal (R), no edema noted Generalized Neurologic: motor weakness Skin: normal pigmentation, warm/dry DELMIS TENORIO Jul 26, 2016 12:51
[2016-07-26 17:33] VITALS: BP 120/70
--- NOTE | 2016-07-28 11:38 | Discharge Summary ---
Discharge Summary Hospital Course Date of Admission Jul 18, 2016 at 21:50 Date of Discharge Jul 26, 2016 at 19:40 Admitting Diagnosis general weakness HPI Lulú Hsu is a 65 year old female who was admitted on Jul 18, 2016 at 21: 50 for General Weakness Hospital Course [id number] Discharge Discharge Disposition Patient was discharged to SNF/Subacute Facility(03) Discharge Diagnoses: Kelly De Jesus NP Jul 28, 2016 11:38
--- NOTE | 2016-07-28 23:08 | Discharge Summary 2 SIG ---
DATE OF ADMISSION: 07/18/2016 DATE OF DISCHARGE: 07/26/2016 CONSULTANTS: 1. Jose Martin Estes M.D. 2. Ivelisse Vegas M.D. 3. Juan Palma M.D. 4. Haider Schmidt M.D. BRIEF HOSPITAL COURSE: The patient is a 65-year-old female from [facility], presented to the emergency room for evaluation of vomiting. The patient had three episodes of vomiting and was complaining of headache. On evaluation at ED, the labs showed elevated creatinine. She was recently treated for urinary tract infection. She was admitted to medical floor and was placed on NPO with IV hydration. GI was consulted. Lipase was elevated. She was given bowel regimen consisting of lactulose and Colace and was given proton pump inhibitors. She was planned to undergo EGD, however, procedure was canceled secondary to the altered mental status. H and H has been stable. Stool OB was negative. Dr. Vegas was consulted for evaluation of renal failure. Motrin was discontinued from the patient's medication regimen. Renal ultrasound was negative. An MRI of the abdomen was done and showed dilated extrahepatic bile duct with no definite obstruction. No CBD stones. Dr. Schmidt was consulted for evaluation of hypertension and was continued on carvedilol and Norvasc. Clonidine was placed p.r.n. The patient was cleared by GI and she was eventually discharged to SNF. FINAL DIAGNOSES: 1. Acute toxic metabolic encephalopathy. 2. Acute on chronic renal failure. 3. Possible diabetic nephropathy. 4. Diabetes out of control. 5. Hypertension. 6. Hypothyroidism. 7. Seizure disorder. 8. Anemia of chronic disease. 9. Dilated bile duct. 10. Hypoalbuminemia. 11. Elevated lipase. Reilly Ely D.O. I have been assigned to dictate discharge summary on this account and I was not involved in the patient's management. Kelly De Jesus N.P. DR: SHAYLA JOB#: [id number] CC:
== END 2016-07-26 19:40 | DRG 460 ==
LOC: EDBD 19:57 → EMR 20:40 → 4E 21:50 → EDBEDREQ 22:16
DX: N17.9 Acute kidney failure, unspecified (principal); G93.40 Encephalopathy, unspecified; E11.65 Type 2 diabetes mellitus with hyperglycemia; E11.21 Type 2 diabetes mellitus with diabetic nephropathy; E88.09 Other disorders of plasma-protein metabolism, not elsewhere classified; D64.9 Anemia, unspecified; G40.909 Epilepsy, unspecified, not intractable, without status epilepticus; E78.5 Hyperlipidemia, unspecified; I12.9 Hypertensive chronic kidney disease with stage 1 through stage 4 chronic kidney disease, or unspecified chronic kidney disease; E11.22 Type 2 diabetes mellitus with diabetic chronic kidney disease; N18.9 Chronic kidney disease, unspecified; E03.9 Hypothyroidism, unspecified; I25.10 Atherosclerotic heart disease of native coronary artery without angina pectoris
CPT/HCPCS: 36415; 74181; 76700; 76775; 80048; 80053; 81003; 81025; 82043; 82044; 82150; 82270; 82378; 82570; 82607; 82728; 82746; 83540; 83550; 83690; 84300; 84439; 84443; 85025; 85044; 85610; 85730; 87081; 89050